=== PATIENT | female | born 1975 | race Caucasian/White ===

== ENCOUNTER → 2018-12-18 | Outpatient (CLI) | payer OTHER, SELFPAY ==
[2018-12-18 10:46] LABS: Absolute Lymphocyte Count 2.55 X10^3/ul (0.83-4.51); Absolute Neutrophil Count 4.9 X10^3/uL (2.0-7.7); Basophil# 0.03 X10^3/uL; Basophil% 0.4 % (0-1); Eosinophil# 0.39 X10^3/uL; Eosinophils% 4.6 % (0-5); Hematocrit 40.6 % (37-47); Hemoglobin 13.6 g/dl (12.0-15.0); Lymphocyte # 2.55 X10^3/ul (4.0); Lymphocyte % 30.3 % (19-41); Mean Corp Hgb Conc 33.5 g/gl (32-36); Mean Corpuscular Hgb 28.3 pg (27.0-32.0); Mean Corpuscular Volume 84.4 fL (81-99); Mean Platelet Vol. 11.1 fl (6.2-12.0); Monocyte# 0.54 X10^3/uL; Monocyte% 6.4 % (0-10); Neutrophil # 4.88 X10^3/uL (2.7-7.7); Neutrophil % 58.1 % (47-70); Platelet Count 268 K/mm3 (150-450); RBC Distribution Width CV 14.3 % (11.6-14.6); Red Blood Count 4.81 M/mm3 (4.2-5.4); White Blood Count 8.4 K/mm3 (4.4-11.0)
[2018-12-18 10:48] LABS: POSITIVE COUNT NO; POSITIVE DIFFERENTIAL NO; POSITIVE MORPHOLOGY NO
[2018-12-18 11:04] LABS: Microalbumin,Random Urine 12.4 mg/L (NO RANGE EST.); Microalbumin:Creatinine Ratio 5.6 mg/g CRE (<30 mg/g CRE)
[2018-12-18 11:08] LABS: ALB/GLOB Ratio 1.1 RATIO (0.9-2.4); AST(SGOT) 18 U/L (15-37); Alanine Aminotransfer ALT/SGPT 37 U/L (13-56); Albumin, Serum 3.8 g/dL (3.2-5.0); Alkaline Phosphatase 103 U/L (45-117); Anion Gap 6 (5-15); BUN 14 mg/dL (7-18); BUN/Creat Ratio 18.3 RATIO (10-20); Calcium,Total 9.4 mg/dL (8.5-10.1); Chloride 106 mmol/L (98-107); Cholesterol 142 mg/dL (200); Creatinine, Serum 0.76 mg/dL (0.55-1.02); EST Glomerular Filtration Rate 87 mL/min (>60); Est Glom Filt Rate - Afr Amer 105 mL/min (>60); Ferritin 19 ng/mL (8-252); Globulin 3.4 g/dL (2.2-4.2); Glucose 111 mg/dL (74-106); High Density Lipoprotein 47 mg/dL; Iron 67 ug/dL (50-170); Iron Binding Capacity,Total 355 ug/dL (250-450); Potassium 4.1 mmol/L (3.5-5.1); Protein, Total 7.2 g/dL (6.4-8.2); Sodium Level 140 mmol/L (136-145); Triglycerides 200 mg/dL; Very Low Density Lipoprotein 40 mg/dL (5-40)
== END | disposition home or self-care (01) ==
PROVIDERS: Family Provider Family Medicine; PCP Family Medicine; Referring Provider Family Medicine; Visit Provider Family Medicine
DX: E11.9 Type 2 diabetes mellitus without complications (principal); E78.5 Hyperlipidemia, unspecified; D64.9 Anemia, unspecified
CPT/HCPCS: 36415; 80053; 80061; 82043; 82570; 82728; 83540; 83550; 85025

== ENCOUNTER → 2019-11-16 12:37 | Outpatient (CLI) | payer OTHER, SELFPAY ==
[2019-11-07 14:49] VITALS: BMI 36.3
--- NOTE | 2019-11-16 12:39 | MRI_ITS ---
STUDY: BILATERAL BREAST MR WITHOUT AND WITH CONTRAST REASON FOR EXAM: Female, 44 years old. Bilateral breast pain. History of bilateral mastectomy with reconstructions 11 years ago. TECHNIQUE: Multi-sequence multi-echo imaging of both breasts was performed with a dedicated breast coil. T1-weighted and T2-weighted images were performed before the administration of contrast. T1-weighted images were also performed after the administration of IV Yes without complications. COMPARISON: No comparison studies. FINDINGS: RIGHT BREAST: Status post mastectomy with implant placement. Prominent folds within the implants. No evidence of intracapsular or extracapsular rupture. There are no abnormal enhancing masses or areas of non-mass enhancement in the right breast. LEFT BREAST: Status post mastectomy with implant placement. Prominent folds within the implants. No evidence of intracapsular or extracapsular rupture. There are no abnormal enhancing masses or areas of non-mass enhancement in the right breast. There are no enlarged or abnormal lymph nodes. There is no abnormality in the visualized regions of the chest or liver. MRI/Breast Bilateral W/O and W IMPRESSION: Bilateral mastectomy with implant placement without complications. Yearly follow-up mammogram would be appropriate. CATEGORY: BIRADS Category 2: Benign. A letter regarding these results will be sent to the patient by the facility within 30 days. Electronically Signed: Moncho Altamirano MD at 15:39 EDT , Service support ,
== END ==
PROVIDERS: PCP Student in an Organized Health Care Education/Training Program; Referring Provider Surgery; Visit Provider Surgery
DX: C50.911 Malignant neoplasm of unspecified site of right female breast (principal); C50.912 Malignant neoplasm of unspecified site of left female breast; N64.4 Mastodynia; T66.XXXS Radiation sickness, unspecified, sequela; Z98.890 Other specified postprocedural states; Z98.82 Breast implant status; Z80.3 Family history of malignant neoplasm of breast
CPT/HCPCS: 77049; A9575; A4216; C8908

== ENCOUNTER 2019-11-26 22:04 | Inpatient (IN) | payer OTHER, SELFPAY ==
[2019-11-07 14:49] VITALS: BMI 36.3
[2019-11-26 22:05] VITALS: BP 153/105; PULSE 119; RESP 26; TEMP 37.4; O2SAT 92; BMI 33.2
--- NOTE | 2019-11-26 22:27 | EKG12_ITS ---
Test Reason : HYPERGLYC Blood Pressure : / mmHG Vent. Rate : 115 BPM Atrial Rate : 115 BPM P-R Int : 126 ms QRS Dur : 086 ms QT Int : 352 ms P-R-T Axes : 038 016 047 degrees QTc Int : 486 ms Sinus tachycardia Otherwise normal ECG Confirmed by ANALY AVILES, MARY ELLEN ([id number]), order editor KATY TIJREINA ([id number] on 11/29/2019 10:37:28 AM Referred By: TANIYA Confirmed By:MARY ELLEN BECKFORD MD
--- NOTE | 2019-11-26 22:28 | RAD_ITS ---
STUDY: X-RAY CHEST REASON FOR EXAM: Female, 44 years old. High blood sugar TECHNIQUE: Single AP portable view of the chest. COMPARISON: None. FINDINGS: The lungs are clear and expanded. There is no demonstrated pleural abnormality. Normal size heart. Normal mediastinum and agatha. Normal visualized pulmonary arteries. Normal visualized aortic arch and descending thoracic aorta. Normal visualized thoracic spine. Normal visualized ribs, clavicles, and shoulders. There is no demonstrated abnormality of the visualized soft tissue structures of the upper abdomen. RAD/Chest 1 View (Portable) IMPRESSION: Normal x-ray examination of the chest. Electronically Signed: Jayy Monet MD at 22:40 EDT , Service support ,
--- NOTE | 2019-11-26 22:32 | ED.RN ---
NO OLD EKGS IN MUSE
[2019-11-26 22:33] LABS: Absolute Lymphocyte Count 1.81 X10^3/uL (0.83-4.51); Absolute Neutrophil Count 6.1 X10^3/uL (2.0-7.7); Basophil# 0.03 X10^3/uL; Basophil% 0.3 % (0-1); Hematocrit 49.1 % (37-47); Lymphocyte # 1.81 X10^3/ul (4.0); Lymphocyte % 20.1 % (19-41); Mean Corp Hgb Conc 30.5 g/dL (32-36); Mean Corpuscular Hgb 27.2 pg (27.0-32.0); Mean Corpuscular Volume 89.1 fL (81-99); Mean Platelet Vol. 12.2 fl (6.2-12.0); Monocyte# 1.02 X10^3/uL; Monocyte% 11.3 % (0-10); NRBC Flagged by Analyzer 0 % (0-5); Neutrophil # 6.13 X10^3/uL (2.7-7.7); Neutrophil % 68.1 % (47-70); Platelet Count 324 K/mm3 (150-450); RBC Distribution Width CV 15.1 % (11.6-14.6); RBC Distribution Width SD 49.1 fl (35.1-43.9); Red Blood Count 5.51 M/mm3 (4.2-5.4)
[2019-11-26] MEDS: 0.9% Normal Saline 1,000 ML 1000 ML IV (22:45)
[2019-11-26 22:57] LABS: Bacteria 0 SEEN /hpf (None Seen); Mucous, Urine 0 SEEN /hpf (<or=2+)
[2019-11-26 23:05] LABS: Color, Urine Straw (Yellow); Glucose, Dipstick 1000 mg/dl (Normal); Ketone-Dipstick 5 mg/dl (Negative); Leukocyte Esterase-Dipstick Negative /ul (Negative); Nitrite-Dipstick Negative (Negative); Occult Blood-Urine 10 /ul (Negative); Protein-Dipstick Negative (Negative); Urine Bilirubin Dipstick Negative (Negative); Urine Clarity Clear (Clear); Urine Urobilinogen Normal (Normal)
[2019-11-26 23:10] LABS: Alcohol, Blood (Medical)-Serum < 3.0 mg/dL
[2019-11-26 23:14] LABS: Anion Gap 16 (5-15); BUN 41 mg/dL (7-18); BUN/Creat Ratio 21.9 RATIO (10-20); Calcium,Total 9.7 mg/dL (8.5-10.1); Chloride 101 mmol/L (98-107); Creatinine, Serum 1.87 mg/dL (0.55-1.02); EST Glomerular Filtration Rate 31 mL/min (>60); Est Glom Filt Rate - Afr Amer 37 mL/min (>60); Estimated Creatinine Clearance 38.32 ml/min; Glucose 1276 mg/dL (74-106); Potassium 4.7 mmol/L (3.5-5.1); Sodium Level 140 mmol/L (136-145)
[2019-11-26 23:14] LABS: Amphetamine Urine VISTA NEGATIVE (<1000 ng/mL); Barbiturate Urine VISTA NEGATIVE (< 200 ng/mL); Benzodiazepine Urine VISTA NEGATIVE (< 200 ng/mL); Cocaine Urine VISTA NEGATIVE (< 300 ng/mL); Ecstacy Urine VISTA NEGATIVE (< 500 ng/mL); Methadone Urine VISTA NEGATIVE (< 300 ng/mL); PCP Urine VISTA NEGATIVE (< 25 ng/mL); THC Urine VISTA NEGATIVE (< 50 ng/mL); Vista UDS pH Range 5
[2019-11-26 23:22] LABS: Squamous Epithelial Cells - UA 0-5 SEEN /hpf (5-10)
[2019-11-26 23:23] LABS: Red Blood Cells-Urine 0-5 SEEN /hpf (0-5)
[2019-11-26 23:24] LABS: White Blood Cells 0-5 SEEN /hpf (0-5)
[2019-11-26 23:28] LABS: AST(SGOT) 23 U/L (15-37); Alanine Aminotransfer ALT/SGPT 38 U/L (13-56); Albumin, Serum 3.3 g/dL (3.2-5.0); Alkaline Phosphatase 305 U/L (45-117); Bilirubin, Direct 0.11 mg/dL (0.00-0.30); Globulin 4.9 g/dL (2.2-4.2); Protein, Total 8.2 g/dL (6.4-8.2)
--- NOTE | 2019-11-26 23:36 | ED.DCSUM_ITS ---
History of Present Illness Chief Complaint: Hyperglycemia Informant: Patient Narrative: Patient presents via EMS after police have been called for a welfare check. The reportedly initially found the patient unresponsive. EMS states patient's blood sugar is high. At the time of my exam patient appears confused. She does know where she is and what day it is. She is not sure why she was brought to the emergency room. She denies any complaints at this time. She does not know when she last checked her blood sugar. She does not remember she ate today. Patient is on metformin for blood sugar control. Her primary care physician manages her diabetes for her. - Past Medical History (1) Bilateral malignant neoplasm of breast in female Status: Chronic (2) Diabetes mellitus Status: Chronic (3) Former smoker Status: Chronic (4) Status post bilateral breast reconstruction Status: Chronic Comment: bilateral latissimus dorsi flaps and bilateral nipple reconstruction and bilateral implant placement Past Medical History - Allergies and Home Meds Allergies/Adverse Reactions: Allergies sulfamethoxazole [From Bactrim] Allergy (Severe, Verified 11/26/19 22:11) FULL BODY RED RASH WAS ALMOST PUT IN THE HOSPITAL FOR THIS trimethoprim [From Bactrim] Allergy (Severe, Verified 11/26/19 22:11) FULL BODY RED RASH WAS ALMOST PUT IN THE HOSPITAL FOR THIS amoxicillin Allergy (Intermediate, Verified 11/26/19 22:11) RASH AND ITCHING azithromycin Allergy (Intermediate, Verified 11/26/19 22:11) RASH AND ITCHING erythromycin base Allergy (Intermediate, Verified 11/26/19 22:11) RASH AND ITCHING Penicillins Allergy (Intermediate, Verified 11/26/19 22:11) RASH AND ITCHING tetracycline Allergy (Intermediate, Verified 11/26/19 22:11) RASH AND ITCHING Primary Care Physician: Kevin Adorno DO [Primary Care Provider] - Prior records reviewed: Yes Smoking Status: Never smoker Review of Systems General: Denies: Chills, Fever Eyes: Denies: Visual changes - bilaterally ENT: Denies: Bilateral ear pain Cardiovascular: Denies: Chest pain Respiratory: Denies: Dyspnea, Cough Gastrointestinal: Denies: Abdominal pain, Vomiting, Diarrhea Musculoskeletal: Denies: Extremity Pain Skin: Reports: - - Patient does have evidence of sunburn to her forearms and the back of her neck. Neurological: Denies: Headache Hematologic: Denies: Easy bruising, Easy bleeding Allergy: Denies: Uticaria Physical Exam Vital Signs/Narrative: Vital Signs Temp Pulse Resp BP Pulse Ox 11/26/19 22:05 99.4 F H 119 H 26 H 153/105 H 92 Inital Vital Signs reviewed: Yes General: Well nourished, Well developed Head: Normocephalic ENT: Moist mucous membranes Neck: Supple Cardiovascular: Tachycardia Respiratory: No distress, CTA bilaterally Abdomen: Soft, Nontender Extremities: Nontender Skin: - - Sunburn noted to forearms bilaterally and back of her neck. No open wounds. Neurological: Alert, Oriented x3, Normal Strength, Normal Sensation Psychological: Normal affect Diagnostic/Tx/Re-eval Impressions Chest X-Ray 11/26/19 22:28 IMPRESSION: Normal x-ray examination of the chest. Electronically Signed: Jayy Monet MD at 22:40 EDT , Service support , 11/26/19 22:28 Chest 1 View (Portable) [RAD] Stat Laboratory Results 11/26/19 11/26/19 11/26/19 22:10 22:10 22:10 WBC 9.0 RBC 5.51 H Hgb 15.0 Hct 49.1 H MCV 89.1 MCH 27.2 MCHC 30.5 L RDW Std Deviation 49.1 H RDW Coeff of Adrianna 15.1 H Plt Count 324 MPV 12.2 H Immature Gran % (Auto) 0.200 Neut % (Auto) 68.1 Lymph % (Auto) 20.1 [place] % (Auto) 11.3 H Eos % (Auto) 0.0 Baso % (Auto) 0.3 Absolute Neuts (auto) 6.1 Absolute Lymphs (auto) 1.81 Nucleated RBC % 0 Sodium 140 Potassium 4.7 Chloride 101 Carbon Dioxide 23.0 Anion Gap 16 H BUN 41 H Creatinine 1.87 H Estim Creat Clear Calc 38.32 Est GFR (MDRD) Af Amer 37 L Est GFR (MDRD) Non-Af 31 L BUN/Creatinine Ratio 21.9 H Glucose 1276 H* Calcium 9.7 Total Bilirubin 0.40 Direct Bilirubin 0.11 AST 23 ALT 38 Alkaline Phosphatase 305 H Total Protein 8.2 Albumin 3.3 Globulin 4.9 H Urine Color Urine Clarity Urine pH Ur Specific [place] Urine Protein Urine Glucose (UA) Urine Ketones Urine Occult Blood Urine Nitrite Urine Bilirubin Urine Urobilinogen Ur Leukocyte Esterase Urine RBC Urine WBC Ur Squamous Epith Cells Urine Bacteria Urine Mucus Urine Opiates Screen Urine Methadone Screen Ur Barbiturates Screen Ur Phencyclidine Scrn Ur Amphetamines Screen U Methamphetamin-MDMA U Benzodiazepines Scrn Urine Cocaine Screen U Cannabinoids Screen Ur Drug Screen Comment Ethyl Alcohol Acetone Level 11/26/19 11/26/19 11/26/19 22:10 22:10 22:50 WBC RBC Hgb Hct MCV MCH MCHC RDW Std Deviation RDW Coeff of Adrianna Plt Count MPV Immature Gran % (Auto) Neut % (Auto) Lymph % (Auto) [place] % (Auto) Eos % (Auto) Baso % (Auto) Absolute Neuts (auto) Absolute Lymphs (auto) Nucleated RBC % Sodium Potassium Chloride Carbon Dioxide Anion Gap BUN Creatinine Estim Creat Clear Calc Est GFR (MDRD) Af Amer Est GFR (MDRD) Non-Af BUN/Creatinine Ratio Glucose Calcium Total Bilirubin Direct Bilirubin AST ALT Alkaline Phosphatase Total Protein Albumin Globulin Urine Color Urine Clarity Urine pH Ur Specific [place] Urine Protein Urine Glucose (UA) Urine Ketones Urine Occult Blood Urine Nitrite Urine Bilirubin Urine Urobilinogen Ur Leukocyte Esterase Urine RBC Urine WBC Ur Squamous Epith Cells Urine Bacteria Urine Mucus Urine Opiates Screen NEGATIVE Urine Methadone Screen NEGATIVE Ur Barbiturates Screen NEGATIVE Ur Phencyclidine Scrn NEGATIVE Ur Amphetamines Screen NEGATIVE U Methamphetamin-MDMA NEGATIVE U Benzodiazepines Scrn NEGATIVE Urine Cocaine Screen NEGATIVE U Cannabinoids Screen NEGATIVE Ur Drug Screen Comment Ethyl Alcohol < 3.0 Acetone Level SMALL H 11/26/19 22:50 WBC RBC Hgb Hct MCV MCH MCHC RDW Std Deviation RDW Coeff of Adrianna Plt Count MPV Immature Gran % (Auto) Neut % (Auto) Lymph % (Auto) [place] % (Auto) Eos % (Auto) Baso % (Auto) Absolute Neuts (auto) Absolute Lymphs (auto) Nucleated RBC % Sodium Potassium Chloride Carbon Dioxide Anion Gap BUN Creatinine Estim Creat Clear Calc Est GFR (MDRD) Af Amer Est GFR (MDRD) Non-Af BUN/Creatinine Ratio Glucose Calcium Total Bilirubin Direct Bilirubin AST ALT Alkaline Phosphatase Total Protein Albumin Globulin Urine Color Straw Urine Clarity Clear Urine pH 6.0 Ur Specific [place] 1.010 Urine Protein Negative Urine Glucose (UA) 1000 H Urine Ketones 5 H Urine Occult Blood 10 H Urine Nitrite Negative Urine Bilirubin Negative Urine Urobilinogen Normal Ur Leukocyte Esterase Negative Urine RBC 0-5 SEEN Urine WBC 0-5 SEEN Ur Squamous Epith Cells 0-5 SEEN Urine Bacteria 0 SEEN Urine Mucus 0 SEEN Urine Opiates Screen Urine Methadone Screen Ur Barbiturates Screen Ur Phencyclidine Scrn Ur Amphetamines Screen U Methamphetamin-MDMA U Benzodiazepines Scrn Urine Cocaine Screen U Cannabinoids Screen Ur Drug Screen Comment Ethyl Alcohol Acetone Level - EKG Initial EKG Interpretation: Sinus Tachycardia - Sinus tach at 115. No acute ischemia. - Medical Decision Making Patient is received 1 L of IV fluid at this time. She will receive an additional 1 L followed by insulin drip. I will speak with hospitalist regarding admission to the ICU. ED Disposition - Plan for ED Patient: Disposition: Acute Care [facility] Diagnosis: Hyperosmolar coma due to secondary diabetes Referrals: Kevin Adorno DO [Primary Care Provider] -
[2019-11-26] MEDS: 0.9% Normal Saline 1,000 ML 999 ML IV (23:45)
--- NOTE | 2019-11-26 23:59 | ED.RN ---
TALKED WITH THE PT'S DAUGHTER AND UPDATED HER ON THE PLAN OF CARE
[2019-11-27] VITALS (18 sets, daily range): BP systolic 115–161; BP diastolic 86–121; PULSE 99–120; RESP 12–26; TEMP 36.2–36.9; O2SAT 92–98; BMI 29.9
--- NOTE | 2019-11-27 00:13 | PCM.HP.STD ---
Problem List (1) Hyperosmolar coma due to secondary diabetes Status: Acute (2) Former smoker Status: Chronic (3) Family history of breast cancer Status: Chronic (4) Status post bilateral breast reconstruction Status: Chronic Comment: bilateral latissimus dorsi flaps and bilateral nipple reconstruction and bilateral implant placement History of Present Illness Date of Admission: 11/27/19 Chief Complaint: confusion/high blood sugar The patient is a 44 year old female patient with a significant past medical history of diabetes who presents the emergency room via squad after somebody did a welfare check at her home and found her to be unresponsive. At the time of my evaluation the patient was able to answer questions but she was confused. Initial blood sugar was 1276, white blood cell count 9, hemoglobin 15, hematocrit 49, platelets 324, sodium 140, potassium 4.7, chloride 101, bicarb 23, BUN 41, creatinine 1.8, calcium 9.7, anion gap 16, tox screen negative, small amount of acetone detected, chest x-ray within normal limits. In the ER patient was started on 2 L of normal saline bolus and insulin drip initiated. She will be admitted to the intensive care unit for further management. Patient denies chest pain shortness of breath fevers or chills at present time although she is a poor historian and unable to tell me properly what the day is, however, she is able to tell me she is at the hospital. Past Medical History Past Medical History (Chronic Problems): Chronic Problems (Last Reviewed 11/09/19 @ 15:[address] 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 Pain of both breasts (Chronic) N64.4 inferior breast reconstruction and lateral breast reconstruction scar contour deformities Bilateral malignant neoplasm of breast in female (Chronic) C50.911, C50.912 Breast cancer C50.919 Diabetes E11.9 Neuropathy G62.9 IN FEET Allergies sulfamethoxazole [From Bactrim] Allergy (Severe, Verified 11/26/19 22:11) FULL BODY RED RASH WAS ALMOST PUT IN THE HOSPITAL FOR THIS trimethoprim [From Bactrim] Allergy (Severe, Verified 11/26/19 22:11) FULL BODY RED RASH WAS ALMOST PUT IN THE HOSPITAL FOR THIS amoxicillin Allergy (Intermediate, Verified 11/26/19 22:11) RASH AND ITCHING azithromycin Allergy (Intermediate, Verified 11/26/19 22:11) RASH AND ITCHING erythromycin base Allergy (Intermediate, Verified 11/26/19 22:11) RASH AND ITCHING Penicillins Allergy (Intermediate, Verified 11/26/19 22:11) RASH AND ITCHING tetracycline Allergy (Intermediate, Verified 11/26/19 22:11) RASH AND ITCHING Home Medications: Ambulatory Orders Medication Instructions Recorded atorvastatin 40 mg tablet 40 mg PO DAILY 11/07/19 bupropion HCl 300 mg 24 hr tablet, 300 mg PO QAM 11/07/19 extended release metformin 1,000 mg tablet 2,000 mg PO BID tab 11/07/19 omeprazole 40 mg capsule,delayed 40 mg PO DAILY 11/07/19 release sertraline 50 mg tablet 150 mg PO DAILY tab 11/07/19 Liraglutide [Victoza] 0.6 mg SQ DAILY 11/26/19 Surgical History: Surgical History (Last Reviewed 11/09/19 @ 15:[address] Joe Cespedes MD) H/O bilateral breast implants (Chronic) Z98.82 Status post bilateral breast reconstruction (Chronic) Z98.890 bilateral latissimus dorsi flaps and bilateral nipple reconstruction and bilateral implant placement History of bilateral mastectomy Z90.13 2008 Smoking Status: Never smoker - *Family History Maternal Family History: Family History (Last Reviewed 11/09/19 @ 15:[address] Joe Cespedes MD) Other Anemia Breast cancer Depression Diabetes Family history of breast cancer History Items: No pertinent history Review of Systems Constitutional: Denies: Chills, Fever, Weight Change HEENT: Denies: Head Aches, Sinus Congestion, Sinus Drainage Cardiovascular: Denies: Chest Pain, Palpitations Respiratory: Denies: Cough, Shortness of breath at rest, Sputum production Gastrointestinal: Denies: Abdominal Pain, Nausea, Vomiting Genitourinary: Denies: Dysuria Musculoskeletal: Denies: Joint Pain, Joint Tenderness Skin: Denies: Rash, Wounds Neurological: Denies: Numbness, Tingling, Focal weakness Psychiatric: Denies: Anxiety, Depression, Homicidal Ideations, Suicidal Ideations Hematologic/ Lymphatic: Denies: Easy Bruising, Easy Bleeding Unable to obtain accurate/complete ROS d/t: pt is confused VTE Information - Inpt Only VTE Present on Admission: No VTE Mechan Device Prophylaxis: None VTE Pharm Prophylaxis ordered?: Yes Patient Problems: Active and Suspected Problems (Last Reviewed 11/09/19 @ 15:[address] Joe Cespedes MD) Hyperosmolar coma due to secondary diabetes (Acute) - Physical Exam Vitals/I&O's: Vital Signs Temp Pulse Resp BP Pulse Ox 99.4 F H 119 H 26 H 153/105 H 92 11/26/19 22:05 11/26/19 22:05 11/26/19 22:05 11/26/19 22:05 11/26/19 22:05 Oxygen Delivery Method Room Air Weight: 218 lb 7.649 oz Body Mass Index (BMI) 33.2 Intake and Output for Last 24 Hours 11/25/19 11/26/19 11/27/19 23:59 23:59 23:59 Intake Total 1000 / 1000 Balance 1000 / 1000 General: Alert, Cooperative, Confused HEENT: Atraumatic, PERRLA, EOMI, Normocephalic Neck: Supple Lungs: Clear to auscultation, Normal air movement Cardiovascular: Regular rate, Normal S1, Normal S2, No murmurs, Tachycardic Abdomen: Bowel Sounds Present, Soft, Non Tender, Obese Extremities: No edema Skin: No rashes, No breakdown Musculoskeletal: No Tenderness to Palpation of Joints or Extremities Neurological: Neuro grossly intact Psych/Mental Status: Normal Affect, Appropriate Laboratory Results 11/26/19 22:10: WBC 9.0, RBC 5.51 H, Hgb 15.0, Hct 49.1 H, MCV 89.1, MCH 27.2, MCHC 30.5 L, RDW Std Deviation 49.1 H, RDW Coeff of Adrianna 15.1 H, Plt Count 324, MPV 12.2 H, Immature Gran % (Auto) 0.200, Neut % (Auto) 68.1, Lymph % (Auto) 20.1, [place] % (Auto) 11.3 H, Eos % (Auto) 0.0, Baso % (Auto) 0.3, Absolute Neuts (auto) 6.1, Absolute Lymphs (auto) 1.81, Nucleated RBC % 0 11/26/19 22:10: Sodium 140, Potassium 4.7, Chloride 101, Carbon Dioxide 23.0, Anion Gap 16 H, BUN 41 H, Creatinine 1.87 H, Estim Creat Clear Calc 38.32, Est GFR (MDRD) Af Amer 37 L, Est GFR (MDRD) Non-Af 31 L, BUN/Creatinine Ratio 21.9 H, Glucose 1276 H*, Calcium 9.7 11/26/19 22:10: Total Bilirubin 0.40, Direct Bilirubin 0.11, AST 23, ALT 38, Alkaline Phosphatase 305 H, Total Protein 8.2, Albumin 3.3, Globulin 4.9 H 11/26/19 22:10: Ethyl Alcohol < 3.0 11/26/19 22:10: Acetone Level SMALL H 11/26/19 22:50: Urine Opiates Screen NEGATIVE, Urine Methadone Screen NEGATIVE, Ur Barbiturates Screen NEGATIVE, Ur Phencyclidine Scrn NEGATIVE, Ur Amphetamines Screen NEGATIVE, U Methamphetamin-MDMA NEGATIVE, U Benzodiazepines Scrn NEGATIVE, Urine Cocaine Screen NEGATIVE, U Cannabinoids Screen NEGATIVE, Ur Drug Screen Comment 11/26/19 22:50: Urine Color Straw, Urine Clarity Clear, Urine pH 6.0, Ur Specific [place] 1.010, Urine Protein Negative, Urine Glucose (UA) 1000 H, Urine Ketones 5 H, Urine Occult Blood 10 H, Urine Nitrite Negative, Urine Bilirubin Negative, Urine Urobilinogen Normal, Ur Leukocyte Esterase Negative, Urine RBC 0-5 SEEN, Urine WBC 0-5 SEEN, Ur Squamous Epith Cells 0-5 SEEN, Urine Bacteria 0 SEEN, Urine Mucus 0 SEEN Current Medications Dextrose (D50w Syringe) 0 gm IV X1 PRN; Protocol PRN Reason: Hypoglycemia Protocol Sodium Chloride () 1,000 mls @ 999 mls/hr IV .Q1H1M ONE Stop: 11/27/19 00:22 Last Admin: 11/26/19 23:45 Dose: 999 mls/hr Documented by: Insulin Human Lispro 100 unit/ (Sodium Chloride) 100 mls @ 9.91 mls/hr IV .Q10H6M REPLACED BY [facility]; Protocol Assessment/Plan All Active Problems (Last Reviewed 11/09/19 @ 15:[address] Joe Cespedes MD) Hyperosmolar coma due to secondary diabetes (Acute) Chronic Problems (Last Reviewed 11/09/19 @ 15:[address] 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 HONK/coma secondary to diabetes?admit patient to intensive care unit, insulin drip per routine protocol, continue IV fluid rehydration, repeat BMP in the morning, repeat acetone level in the morning, consult clinical science consultant, neuro evaluations in the intensive care unit every 4 hours. 2. DVT prophylaxis?low molecular weight heparin Inpatient E&M: 21828 Init Hosp L3
--- NOTE | 2019-11-27 00:30 | ED.RN ---
Called report to DESTINY Ellis in ICU.
[2019-11-27 01:20] LABS: Glucose 1008 mg/dL (74-106)
[2019-11-27 01:50] LABS: Hemoglobin A1c 12.7 % (3.8-5.6)
[2019-11-27] MEDS: 0.9% Normal Saline 1,000 ML 500 ML IV (02:23)
[2019-11-27 02:33] LABS: ALB/GLOB Ratio 0.7 RATIO (0.9-2.4); AST(SGOT) 19 U/L (15-37); Alanine Aminotransfer ALT/SGPT 38 U/L (13-56); Albumin, Serum 3.2 g/dL (3.2-5.0); Alkaline Phosphatase 292 U/L (45-117); Anion Gap 12 (5-15); BUN 39 mg/dL (7-18); BUN/Creat Ratio 22.2 RATIO (10-20); Calcium,Total 9.4 mg/dL (8.5-10.1); Chloride 115 mmol/L (98-107); Creatinine, Serum 1.76 mg/dL (0.55-1.02); EST Glomerular Filtration Rate 33 mL/min (>60); Est Glom Filt Rate - Afr Amer 40 mL/min (>60); Estimated Creatinine Clearance 37.79 ml/min; Globulin 4.9 g/dL (2.2-4.2); Glucose 840 mg/dL (74-106); Magnesium 3.5 mg/dL (1.6-2.6); Potassium 3.4 mmol/L (3.5-5.1); Protein, Total 8.1 g/dL (6.4-8.2); Sodium Level 152 mmol/L (136-145); Thyroid Stim Hormone (TSH) 1.34 uIU/mL (0.358-3.74)
[2019-11-27 04:25] LABS: Anion Gap 8 (5-15); BUN 33 mg/dL (7-18); BUN/Creat Ratio 22.1 RATIO (10-20); Calcium,Total 9.4 mg/dL (8.5-10.1); Chloride 121 mmol/L (98-107); Creatinine, Serum 1.49 mg/dL (0.55-1.02); EST Glomerular Filtration Rate 40 mL/min (>60); Est Glom Filt Rate - Afr Amer 49 mL/min (>60); Estimated Creatinine Clearance 44.64 ml/min; Glucose 447 mg/dL (74-106); Potassium 3.4 mmol/L (3.5-5.1); Sodium Level 157 mmol/L (136-145)
[2019-11-27] MEDS: 0.9% Normal Saline 1,000 ML 250 ML IV (04:25)
[2019-11-27 05:40] LABS: Bedside Glucose 371 mg/dL (70-110)
[2019-11-27 06:31] LABS: Bedside Glucose 336 mg/dL (70-110)
--- NOTE | 2019-11-27 07:01 | PCM.CON.CC ---
Reason for Consult Date of Consultation: 11/27/19 Reason for Consultation: [facility] History of Present Illness: The patient is a 44-year-old female, with a history as outlined below, who presented to the emergency department on November 25 with complaints of abdominal pain, nausea and vomiting. The patient states that she has been experiencing the aforementioned symptoms for several weeks. Although she does have a history of diabetes mellitus, she has been noncompliant with her home diabetic regimen, as she stated that she was unable to tolerate her p.o. medications due to her presenting symptoms. 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 Her diabetic medications are managed by her PCP. Apparently, prior to hospital presentation, friends and family became concerned, as the patient became confused and disoriented. On presentation to the emergency department, the patient was noted to be afebrile and hemodynamically stable. She was, nevertheless tachycardic and tachypneic. Laboratory evaluation revealed no evidence of a leukocytosis. Chemistry profile was notable for an elevated creatinine of 1.87 with a glucose of 1276 and hemoglobin A1c of 12.7. Anion gap was elevated to 16. Small serum acetone level was noted. The patient received aggressive supplemental IV fluid hydration and was started on a continuous insulin infusion. She was subsequently admitted to the medical intensive care unit. Past Medical History Past Medical History (Chronic Problems): Chronic Problems (Last Reviewed 11/09/19 @ 15:[address] 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 Pain of both breasts (Chronic) N64.4 inferior breast reconstruction and lateral breast reconstruction scar contour deformities Bilateral malignant neoplasm of breast in female (Chronic) C50.911, C50.912 Breast cancer C50.919 Diabetes E11.9 Neuropathy G62.9 IN FEET Allergies sulfamethoxazole [From Bactrim] Allergy (Severe, Verified 11/26/19 22:11) FULL BODY RED RASH WAS ALMOST PUT IN THE HOSPITAL FOR THIS trimethoprim [From Bactrim] Allergy (Severe, Verified 11/26/19 22:11) FULL BODY RED RASH WAS ALMOST PUT IN THE HOSPITAL FOR THIS amoxicillin Allergy (Intermediate, Verified 11/26/19 22:11) RASH AND ITCHING azithromycin Allergy (Intermediate, Verified 11/26/19 22:11) RASH AND ITCHING erythromycin base Allergy (Intermediate, Verified 11/26/19 22:11) RASH AND ITCHING Penicillins Allergy (Intermediate, Verified 11/26/19 22:11) RASH AND ITCHING tetracycline Allergy (Intermediate, Verified 11/26/19 22:11) RASH AND ITCHING Home Medications: Ambulatory Orders Medication Instructions Recorded atorvastatin 40 mg tablet 40 mg PO DAILY 11/07/19 bupropion HCl 300 mg 24 hr tablet, 300 mg PO QAM 11/07/19 extended release metformin 1,000 mg tablet 1,000 mg PO BID tab 11/07/19 omeprazole 40 mg capsule,delayed 40 mg PO DAILY 11/07/19 release sertraline 50 mg tablet 150 mg PO DAILY tab 11/07/19 Liraglutide [Victoza] 1.8 mg SQ DAILY 11/26/19 Surgical History: Surgical History (Last Reviewed 11/09/19 @ 15:[address] Joe Cespedes MD) H/O bilateral breast implants (Chronic) Z98.82 Status post bilateral breast reconstruction (Chronic) Z98.890 bilateral latissimus dorsi flaps and bilateral nipple reconstruction and bilateral implant placement History of bilateral mastectomy Z90.13 2009 Smoking Status: Never smoker - *Family History Maternal Family History: Family History (Last Reviewed 11/09/19 @ 15:[address] Joe Cespedes MD) Other Anemia Breast cancer Depression Diabetes Family history of breast cancer History Items: No pertinent history Review of Systems Constitutional: Denies: Chills, Fever Eyes: Denies: Blurred vision, Double vision HEENT: Denies: Difficulty Hearing, Difficulty Swallowing Cardiovascular: Denies: Chest Pain, Palpitations Respiratory: Denies: Cough, Shortness of breath at rest, Sputum production Gastrointestinal: Reports: Abdominal Pain, Nausea, Vomiting Genitourinary: Denies: Dysuria Musculoskeletal: Denies: Joint Pain, Joint Tenderness Skin: Denies: Rash, Wounds Neurological: Reports: Confusion Psychiatric: Denies: Anxiety, Depression, Homicidal Ideations, Suicidal Ideations Hematologic/ Lymphatic: Denies: Easy Bruising, Easy Bleeding Patient Problems: Active and Suspected Problems (Last Reviewed 11/09/19 @ 15:[address] Joe Cespedes MD) Hyperosmolar coma due to secondary diabetes (Acute) Objective: The patient's most recent lab work, culture data and imaging studies have all been personally reviewed. - Physical Exam Vitals/I&O's: Vital Signs Temp Pulse Resp BP Pulse Ox 97.6 F L 107 H 19 H 151/98 H 96 11/27/19 04:00 11/27/19 06:00 11/27/19 06:00 11/27/19 06:00 11/27/19 06:00 Oxygen Delivery Method Room Air Weight: 185 lb 6.54 oz Body Mass Index (BMI) 29.9 Finger Stick Blood Glucose 336 Intake and Output for Last 24 Hours 11/25/19 11/26/19 11/27/19 23:59 23:59 23:59 Intake Total 1000 / 1000 Balance 1000 / 1000 General: Alert, Cooperative, No apparent distress HEENT: Atraumatic, PERRLA, Normocephalic Oral: No Gingival or Mucosal Lesions/ Ulcerations Neck: Supple, No Nodes, Trachea Midline Lungs: Normal air movement, No rhonchi, No wheeze, No rales Cardiovascular: Regular rate, Regular Rhythm, Normal S1, Normal S2 Abdomen: Bowel Sounds Present, Soft, Non Tender Extremities: No clubbing, No cyanosis, No edema Skin: No breakdown Musculoskeletal: No Tenderness to Palpation of Joints or Extremities Lymphatic: No Cervical, Supraclavicular, or Inguinal Adenopathy Neurological: Cranial nerves II-XII grossly intact, Neuro grossly intact Psych/Mental Status: Normal Affect, Appropriate Laboratory Results 11/26/19 22:10: WBC 9.0, RBC 5.51 H, Hgb 15.0, Hct 49.1 H, MCV 89.1, MCH 27.2, MCHC 30.5 L, RDW Std Deviation 49.1 H, RDW Coeff of Adrianna 15.1 H, Plt Count 324, MPV 12.2 H, Immature Gran % (Auto) 0.200, Neut % (Auto) 68.1, Lymph % (Auto) 20.1, [place] % (Auto) 11.3 H, Eos % (Auto) 0.0, Baso % (Auto) 0.3, Absolute Neuts (auto) 6.1, Absolute Lymphs (auto) 1.81, Nucleated RBC % 0 11/26/19 22:10: Sodium 140, Potassium 4.7, Chloride 101, Carbon Dioxide 23.0, Anion Gap 16 H, BUN 41 H, Creatinine 1.87 H, Estim Creat Clear Calc 38.32, Est GFR (MDRD) Af Amer 37 L, Est GFR (MDRD) Non-Af 31 L, BUN/Creatinine Ratio 21.9 H, Glucose 1276 H*, Calcium 9.7 11/26/19 22:10: Total Bilirubin 0.40, Direct Bilirubin 0.11, AST 23, ALT 38, Alkaline Phosphatase 305 H, Total Protein 8.2, Albumin 3.3, Globulin 4.9 H 11/26/19 22:10: Ethyl Alcohol < 3.0 11/26/19 22:10: Acetone Level SMALL H 11/26/19 22:10: Hemoglobin A1c 12.7 H 11/26/19 22:50: Urine Opiates Screen NEGATIVE, Urine Methadone Screen NEGATIVE, Ur Barbiturates Screen NEGATIVE, Ur Phencyclidine Scrn NEGATIVE, Ur Amphetamines Screen NEGATIVE, U Methamphetamin-MDMA NEGATIVE, U Benzodiazepines Scrn NEGATIVE, Urine Cocaine Screen NEGATIVE, U Cannabinoids Screen NEGATIVE, Ur Drug Screen Comment 11/26/19 22:50: Urine Color Straw, Urine Clarity Clear, Urine pH 6.0, Ur Specific [place] 1.010, Urine Protein Negative, Urine Glucose (UA) 1000 H, Urine Ketones 5 H, Urine Occult Blood 10 H, Urine Nitrite Negative, Urine Bilirubin Negative, Urine Urobilinogen Normal, Ur Leukocyte Esterase Negative, Urine RBC 0-5 SEEN, Urine WBC 0-5 SEEN, Ur Squamous Epith Cells 0-5 SEEN, Urine Bacteria 0 SEEN, Urine Mucus 0 SEEN 11/27/19 00:40: Glucose 1008 H* 11/27/19 01:55: Sodium 152 H, Potassium 3.4 L, Chloride 115 H, Carbon Dioxide 25.0, Anion Gap 12, BUN 39 H, Creatinine 1.76 H, Estim Creat Clear Calc 37.79, Est GFR (MDRD) Af Amer 40 L, Est GFR (MDRD) Non-Af 33 L, BUN/Creatinine Ratio 22.2 H, Glucose 840 H*, Calcium 9.4, Phosphorus 4.0, Magnesium 3.5 H, Total Bilirubin 0.30, AST 19, ALT 38, Alkaline Phosphatase 292 H, Total Protein 8.1, Albumin 3.2, Globulin 4.9 H, Albumin/Globulin Ratio 0.7 L, TSH 1.34 11/27/19 03:50: Sodium 157 H, Potassium 3.4 L, Chloride 121 H, Carbon Dioxide 28.0, Anion Gap 8, BUN 33 H, Creatinine 1.49 H, Estim Creat Clear Calc 44.64, Est GFR (MDRD) Af Amer 49 L, Est GFR (MDRD) Non-Af 40 L, BUN/Creatinine Ratio 22.1 H, Glucose 447 H, Calcium 9.4 11/27/19 05:32: POC Glucose 371 H 11/27/19 06:25: POC Glucose 336 H Current Medications Dextrose (D50w Syringe) 0 gm IV X1 PRN; Protocol PRN Reason: Hypoglycemia Protocol Enoxaparin Sodium (Lovenox) 40 mg SC DAILY GAYLE Glucagon () 1 mg IM .X1 PRN PRN Reason: Hypoglycemia Insulin Human Lispro 100 unit/ (Sodium Chloride) 100 mls @ 9.91 mls/hr IV .Q10H6M GAYLE; Protocol Last Titration: 11/27/19 06:25 Dose: 0.01 units/kg/hr, 1.1 mls/hr Documented by: Sodium Chloride () 1,000 mls @ 250 mls/hr IV .Q4H ONE Stop: 11/27/19 08:24 Last Admin: 11/27/19 04:25 Dose: 250 mls/hr Documented by: Sodium Chloride () 250 mls @ 15 mls/hr IV .[id number] PRN PRN Reason: Saline Flush Sodium Chloride () 250 mls @ 15 mls/hr IV .[id number] PRN PRN Reason: Additional IVPB Infusion Potassium Chloride () 10 meq in 100 mls @ 100 mls/hr IV BOLUS Q1H [facility] Stop: 11/27/19 10:44 Ondansetron HCl (Zofran) 4 mg IV Q8H PRN PRN PRN Reason: NAUSEA/VOMITING Sodium Chloride () 10 - 40 ml IV UD PRN PRN Reason: SALINE FLUSH Assessment/Plan Active and Suspected Problems (Last Reviewed 11/09/19 @ 15:[address] Joe Cespedes MD) Hyperosmolar coma due to secondary diabetes (Acute) RECOMMENDATIONS: 1. Transition from normal saline to D5W infusion. 2. Consider transitioning from continuous insulin infusion to Lantus and sliding scale coverage. 3. Recheck BMP this afternoon. 4. Provide extensive diabetic education. 5. Restart home medications. 6. Close outpatient follow-up with PCP is strongly recommended. IMPRESSIONS: 1. Hyperosmolar hyperglycemic state secondary to outpatient noncompliance The patient has been treated with supplemental IV fluid hydration and continuous insulin infusion. She clearly has some underlying compliance issues, based upon her hemoglobin A1c which exceeded 12 on presentation. She will be continued on supplemental IV fluid hydration for now. However, given her rising sodium and chloride levels, I recommended we transition her to D5W. The patient can likely be transitioned to Lantus and sliding scale insulin coverage. Diabetic education will be provided. 2. Acute kidney injury Likely prerenal in etiology. The patient has responded appropriately to IV fluid resuscitation. Creatinine has improved. Continue to monitor urine output. No current indication for renal replacement therapy. 3. Hypernatremia/hyperchloremia Likely secondary to overzealous resuscitation with normal saline. The patient supplemental fluids have been transitioned to D5W. Recommend rechecking BMP later today. 4. Depression/GERD/hyperlipidemia Complicates care, management, recovery and prognosis. Okay to restart home medications from my perspective. This note was generated with [employer] software. It may contain incorrect words, spelling, and punctuation that were not noted in checking the note before signing. Inpatient E&M: 59104 Init Hosp L3
--- NOTE | 2019-11-27 07:19 | PCM.PN.HOSP ---
Patient Problems: Active and Suspected Problems (Last Reviewed 11/09/19 @ 15:[address] Joe Cespedes MD) Hyperosmolar coma due to secondary diabetes (Acute) Reason for Visit: Follow-up for [facility]. Objective: Patient admits that she has been slacking on glucose checks and medication for diabetes mellitus type 2. She last checked her blood sugar about a month ago and was about 150s. She is only on metformin 1000 mg twice daily at home. 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 Blood sugars was 1276 in BMP, BUN/creatinine 41/1.87, sodium 140, confused and very dehydrated. Patient was resuscitated in ER and further in ICU. She is awake and alert and oriented x3. Vitals/I&O's: Vital Signs Temp Pulse Resp BP Pulse Ox 97.6 F L 107 H 19 H 151/98 H 96 11/27/19 04:00 11/27/19 06:00 11/27/19 06:00 11/27/19 06:00 11/27/19 06:00 Oxygen Delivery Method Room Air Weight: 185 lb 6.54 oz Body Mass Index (BMI) 29.9 Finger Stick Blood Glucose 336 Intake and Output for Last 24 Hours 11/25/19 11/26/19 11/27/19 23:59 23:59 23:59 Intake Total 1000 / 1000 2734.26 / 2734.26 Balance 1000 / 1000 2734.26 / 2734.26 General: Alert, Oriented x3, Cooperative HEENT: Atraumatic, PERRLA, EOMI, Normocephalic Neck: Supple, No JVD, Negative Carotid Bruits Lungs: Clear to auscultation, Normal air movement, No rhonchi, No wheeze, No rales Cardiovascular: Regular Rhythm, Normal S1, Normal S2, No murmurs, Tachycardic Abdomen: Bowel Sounds Present, Soft, Non Tender, Non-Distended Extremities: No edema, Capillary Refill Less than 3 Seconds Skin: No rashes, No breakdown Musculoskeletal: No Tenderness to Palpation of Joints or Extremities Neurological: Cranial nerves II-XII grossly intact, Deep Tendon Reflexes 2+/4 and Symmetrical, Neuro grossly intact, Motor Exam 5/5 strength throughout Psych/Mental Status: Normal Affect, Appropriate Laboratory Results 11/26/19 22:10: WBC 9.0, RBC 5.51 H, Hgb 15.0, Hct 49.1 H, MCV 89.1, MCH 27.2, MCHC 30.5 L, RDW Std Deviation 49.1 H, RDW Coeff of Adrianna 15.1 H, Plt Count 324, MPV 12.2 H, Immature Gran % (Auto) 0.200, Neut % (Auto) 68.1, Lymph % (Auto) 20.1, [place] % (Auto) 11.3 H, Eos % (Auto) 0.0, Baso % (Auto) 0.3, Absolute Neuts (auto) 6.1, Absolute Lymphs (auto) 1.81, Nucleated RBC % 0 11/26/19 22:10: Sodium 140, Potassium 4.7, Chloride 101, Carbon Dioxide 23.0, Anion Gap 16 H, BUN 41 H, Creatinine 1.87 H, Estim Creat Clear Calc 38.32, Est GFR (MDRD) Af Amer 37 L, Est GFR (MDRD) Non-Af 31 L, BUN/Creatinine Ratio 21.9 H, Glucose 1276 H*, Calcium 9.7 11/26/19 22:10: Total Bilirubin 0.40, Direct Bilirubin 0.11, AST 23, ALT 38, Alkaline Phosphatase 305 H, Total Protein 8.2, Albumin 3.3, Globulin 4.9 H 11/26/19 22:10: Ethyl Alcohol < 3.0 11/26/19 22:10: Acetone Level SMALL H 11/26/19 22:10: Hemoglobin A1c 12.7 H 11/26/19 22:50: Urine Opiates Screen NEGATIVE, Urine Methadone Screen NEGATIVE, Ur Barbiturates Screen NEGATIVE, Ur Phencyclidine Scrn NEGATIVE, Ur Amphetamines Screen NEGATIVE, U Methamphetamin-MDMA NEGATIVE, U Benzodiazepines Scrn NEGATIVE, Urine Cocaine Screen NEGATIVE, U Cannabinoids Screen NEGATIVE, Ur Drug Screen Comment 11/26/19 22:50: Urine Color Straw, Urine Clarity Clear, Urine pH 6.0, Ur Specific [place] 1.010, Urine Protein Negative, Urine Glucose (UA) 1000 H, Urine Ketones 5 H, Urine Occult Blood 10 H, Urine Nitrite Negative, Urine Bilirubin Negative, Urine Urobilinogen Normal, Ur Leukocyte Esterase Negative, Urine RBC 0-5 SEEN, Urine WBC 0-5 SEEN, Ur Squamous Epith Cells 0-5 SEEN, Urine Bacteria 0 SEEN, Urine Mucus 0 SEEN 11/27/19 00:40: Glucose 1008 H* 11/27/19 01:55: Sodium 152 H, Potassium 3.4 L, Chloride 115 H, Carbon Dioxide 25.0, Anion Gap 12, BUN 39 H, Creatinine 1.76 H, Estim Creat Clear Calc 37.79, Est GFR (MDRD) Af Amer 40 L, Est GFR (MDRD) Non-Af 33 L, BUN/Creatinine Ratio 22.2 H, Glucose 840 H*, Calcium 9.4, Phosphorus 4.0, Magnesium 3.5 H, Total Bilirubin 0.30, AST 19, ALT 38, Alkaline Phosphatase 292 H, Total Protein 8.1, Albumin 3.2, Globulin 4.9 H, Albumin/Globulin Ratio 0.7 L, TSH 1.34 11/27/19 03:50: Sodium 157 H, Potassium 3.4 L, Chloride 121 H, Carbon Dioxide 28.0, Anion Gap 8, BUN 33 H, Creatinine 1.49 H, Estim Creat Clear Calc 44.64, Est GFR (MDRD) Af Amer 49 L, Est GFR (MDRD) Non-Af 40 L, BUN/Creatinine Ratio 22.1 H, Glucose 447 H, Calcium 9.4 11/27/19 05:32: POC Glucose 371 H 11/27/19 06:25: POC Glucose 336 H Current Medications Dextrose (D50w Syringe) 0 gm IV X1 PRN; Protocol PRN Reason: Hypoglycemia Protocol Enoxaparin Sodium (Lovenox) 40 mg SC DAILY GAYLE Glucagon () 1 mg IM .X1 PRN PRN Reason: Hypoglycemia Insulin Human Lispro 100 unit/ (Sodium Chloride) 100 mls @ 9.91 mls/hr IV .Q10H6M GAYLE; Protocol Last Titration: 11/27/19 06:25 Dose: 0.01 units/kg/hr, 1.1 mls/hr Documented by: Sodium Chloride () 250 mls @ 15 mls/hr IV .[id number] PRN PRN Reason: Saline Flush Sodium Chloride () 250 mls @ 15 mls/hr IV .[id number] PRN PRN Reason: Additional IVPB Infusion Potassium Chloride () 10 meq in 100 mls @ 100 mls/hr IV BOLUS Q1H [facility] Stop: 11/27/19 10:44 Dextrose () 1,000 mls @ 150 mls/hr IV .Q6H40M GAYLE Ondansetron HCl (Zofran) 4 mg IV Q8H PRN PRN PRN Reason: NAUSEA/VOMITING Sodium Chloride () 10 - 40 ml IV UD PRN PRN Reason: SALINE FLUSH STROKE Vital Signs/Narrative: Vital Signs Temp Pulse Resp BP Pulse Ox 11/27/19 06:00 107 H 19 H 151/98 H 96 11/27/19 05:00 117 H 17 138/103 H 92 11/27/19 04:00 97.6 F L 114 H 20 H 142/100 H 92 Medical Necessity - Tobacco Use Smoking Status: Never smoker Assessment/Plan All Active Problems (Last Reviewed 11/09/19 @ 15:[address] Joe Cespedes MD) Hyperosmolar coma due to secondary diabetes (Acute) This is a 44-year-old female with history of diabetes mellitus type 2's admitted in ICU with unresponsiveness, blood glucose 1276, electrolyte abnormality, acute kidney injury consistent with hyperglycemic hyperosmolar state 1. Hyperglycemic hyperosmolar state: While in ICU patient patient has been well hydrated. Glucose 147. On insulin drip. Patient can be fed once off insulin drip and change to intermittent subcutaneous bolus and prandial insulin. 2. Electrolyte abnormality: Initially sodium was 140. Now hypernatremic 157. Mild hyponatremia, potassium being replaced. 3. Acute kidney injury, grade 1, prerenal etiology secondary to hypovolemia: Admitting BUN/creatinine 41/1.87. Patient baseline creatinine 0.76 on 12/18/2018 4. Unresponsiveness/acute encephalopathy mainly metabolic secondary to HHS: Resolved. 5. DVT prophylaxis: Lovenox 40 mg of daily.
[2019-11-27 07:50] LABS: Bedside Glucose 362 mg/dL (70-110)
[2019-11-27] MEDS: Potassium Chloride 10mEq/100mL 10 MEQ/100 ML IV.SOLN. 100 MEQ IV BOLUS ×4 (07:54→10:51)
[2019-11-27 08:03] LABS: Anion Gap 9 (5-15); BUN 30 mg/dL (7-18); BUN/Creat Ratio 25.9 RATIO (10-20); Calcium,Total 8.8 mg/dL (8.5-10.1); Chloride 124 mmol/L (98-107); Creatinine, Serum 1.16 mg/dL (0.55-1.02); EST Glomerular Filtration Rate 54 mL/min (>60); Est Glom Filt Rate - Afr Amer 65 mL/min (>60); Estimated Creatinine Clearance 57.33 ml/min; Glucose 402 mg/dL (74-106); Potassium 3.9 mmol/L (3.5-5.1); Sodium Level 161 mmol/L (136-145)
[2019-11-27 08:30] LABS: Bedside Glucose 327 mg/dL (70-110)
[2019-11-27 09:56] LABS: Bedside Glucose 338 mg/dL (70-110)
--- NOTE | 2019-11-27 09:57 | CASEMGMT ---
RN CM Assessment Note Presentation: Pt found by police during well check to be unresponsive and transported via EMS to hospital Diagnosis: Hyperosmolar coma, Diabetes Type 2 Intro role of CM to patient in room. Pt is now awake, alert and able to participate in assessment. Pt states she works, is independent in ADL and no care needs identified. 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 Pt has done insulin injections in past. PMH: Diabetes, Breast Cancer PCP: Dr. Adorno Specialists: none. Discussed if [facility] recommended, Dr. Barrera is [facility] physician. Pt aware how to contact and make appt if needed. Preferred Pharmacy: [facility] Prescription Benefit: yes LNOK: Mother, Emi Reyes Living Arrangements: Lives independently, Denies care needs Tranportation: drives, but will have someone drive her home. DME: Blood Glucose monitor HHC: none SNF: none Patient DC Goals: Home DC Plan: Home. will need script for Blood Glucose monitoring supplies. Nurse has name of monitor and will let physician know to write script on dc. No needs identified @ this time. Andreia HENDERSONN RN ACM
--- NOTE | 2019-11-27 10:52 | PCM.NTREPORT ---
Nutrition Therapy Report - History Nutrition Services has been consulted to:: Conduct nutrition education Current diet / nutrition support order:: NPO - Anthropometric Measurements Height:: 5 ft 6 in Weight:: 84.1 kg Body Mass Index (BMI):: 29.9 - Relevant Labs Relevant Labs:: RBC 5.51 M/mm3 (4.2-5.4) H 11/26/19 22:10 Hct 49.1 % (37-47) H 11/26/19 22:10 MCHC 30.5 g/dL (32-36) L 11/26/19 22:10 RDW Std Deviation 49.1 fl (35.1-43.9) H 11/26/19 22:10 RDW Coeff of Adrianna 15.1 % (11.6-14.6) H 11/26/19 22:10 MPV 12.2 fl (6.2-12.0) H 11/26/19 22:10 [place] % (Auto) 11.3 % (0-10) H 11/26/19 22:10 Sodium 161 mmol/L (136-145) H* 11/27/19 07:40 Potassium 3.4 mmol/L (3.5-5.1) L 11/27/19 03:50 Chloride 124 mmol/L (98-107) H 11/27/19 07:40 Anion Gap 16 (5-15) H 11/26/19 22:10 BUN 30 mg/dL (7-18) H 11/27/19 07:40 Creatinine 1.16 mg/dL (0.55-1.02) H 11/27/19 07:40 Est GFR (MDRD) Af Amer 49 mL/min (>60) L 11/27/19 03:50 Est GFR (MDRD) Non-Af 54 mL/min (>60) L 11/27/19 07:40 BUN/Creatinine Ratio 25.9 RATIO (10-20) H 11/27/19 07:40 Glucose 402 mg/dL (74-106) H 11/27/19 07:40 Hemoglobin A1c 12.7 % (3.8-5.6) H 11/26/19 22:10 Magnesium 3.5 mg/dL (1.6-2.6) H 11/27/19 01:55 Alkaline Phosphatase 292 U/L (45-117) H 11/27/19 01:55 Globulin 4.9 g/dL (2.2-4.2) H 11/27/19 01:55 Albumin/Globulin Ratio 0.7 RATIO (0.9-2.4) L 11/27/19 01:55 - Assessment Food / Nutrition-Related History:: Pt reports not following a special diet at home. States blood glucose was only high d/t not taking her medications as prescribed. A1C indicates very poor glycemic control. 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 Reports fair intake d/t n/v. Believes she lost 15# d/t n/v. UBW 230# and CBW 185.4#-44.6/19% wt loss, significant. Agreeable to education, see below. - Nutrition Diagnosis Evidence of Malnutrition Exists:: No - Nutrition Intervention Nutrition Prescription:: [id number] calories/day, 67-77 g protein/day - Food / Nutrient Delivery Interventions Summary of nutrition intervention:: Nutrition education provided. Reviewed sources of CHO in diet. Discussed limiting CHO using plate method. Encouraged increased intake of non-starchy vegetables. Pt expresses interest in continuing w/ wt loss when blood glucose is adequately controlled. Agreeable to information presented, but appears confident that blood glucose will improve when medications are taken as prescribed. Encouraged follow-up w/ outpatient [facility]. Nutrition support ordered as / adjusted to:: 1800 calorie diet when PO diet appropriate. Nutrition education provided?: Yes - see above - MNT Monitoring MNT Follow-up in:: 3-5 days
[2019-11-27 11:00] LABS: Bedside Glucose 321 mg/dL (70-110)
[2019-11-27 12:16] LABS: Anion Gap 9 (5-15); BUN 23 mg/dL (7-18); BUN/Creat Ratio 21.1 RATIO (10-20); Calcium,Total 8.9 mg/dL (8.5-10.1); Chloride 120 mmol/L (98-107); Creatinine, Serum 1.09 mg/dL (0.55-1.02); EST Glomerular Filtration Rate 58 mL/min (>60); Est Glom Filt Rate - Afr Amer 70 mL/min (>60); Estimated Creatinine Clearance 61.02 ml/min; Glucose 340 mg/dL (74-106); Sodium Level 157 mmol/L (136-145)
[2019-11-27] MEDS: buPROPion (XL) 300 MG TABLET.XL PO (12:25)
[2019-11-27] MEDS: Sertraline 100 MG Tablet 150 MG PO (12:25)
[2019-11-27] MEDS: Pantoprazole Sodium 40 MG Tablet PO (12:25)
[2019-11-27 13:25] LABS: Bedside Glucose 306 mg/dL (70-110)
[2019-11-27 13:25] LABS: Bedside Glucose 301 mg/dL (70-110)
--- NOTE | 2019-11-27 15:38 | DS.PCM_ITS ---
Discharge Date and Diagnosis Date of Admission: 11/27/19 Date of Discharge: 11/27/19 - Primary Discharge Diagnosis Acute Problems: Active Problems (Last Reviewed 11/09/19 @ 15:[address] Joe Cespedes MD) Hyperosmolar coma due to secondary diabetes (Acute) Hypernatremia Hyperosmolar hyperglycemic state Sign AMA - Secondary Discharge Diagnosis Chronic Problems: Chronic Problems (Last Reviewed 11/09/19 @ 15:[address] 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 Pain of both breasts (Chronic) inferior breast reconstruction and lateral breast reconstruction scar contour deformities H/O bilateral breast implants (Chronic) Status post bilateral breast reconstruction (Chronic) bilateral latissimus dorsi flaps and bilateral nipple reconstruction and bilateral implant placement Bilateral malignant neoplasm of breast in female (Chronic) Hospital Course and Treatment Summary of Care Provided: This is a 44-year-old female with history of diabetes mellitus type 2 was admitted in ICU with unresponsiveness, blood glucose 1276, electrolyte abnormality, acute kidney injury consistent with hyperglycemic hyperosmolar state 1. Hyperglycemic hyperosmolar state: Patient was well hydrated with normal saline and then fluid changed to D5W once found hypernatremic. Insulin drip was changed to intermittent subcutaneous basal and sliding scale insulin. Patient is not on insulin at home. Started on carb controlled diet. 2. Electrolyte abnormality: Initially sodium was 140. Now hypernatremic 157. On D5W. 3. Acute kidney injury, grade 1, prerenal etiology secondary to hypovolemia: Admitting BUN/creatinine 41/1.87. Patient baseline creatinine 0.76 on 12/18/2018. Most recent BUN/creatinine 23/1.09. 4. Unresponsiveness/acute encephalopathy mainly metabolic secondary to HHS: Resolved. 5. DVT prophylaxis: Lovenox 40 mg of daily. [] Patient was tried to convince and reconcile to stay in the hospital for HHS and metabolic and electrolyte abnormality but she is adamant to sign AMA. She also wanted to provide right for home and that was declined as she wants to sign AMA. Patient went to home despite knowing the dangers of hypernatremia and metabolic/biochemical abnormality as mentioned above Patient is advised to follow-up with hearing aide technician, Dr. Barrera in 1 to 2 weeks. Objective: Seen and examined. Patient very adamant to sign AMA despite trying to convince her decision to reconsider as her blood sugars are elevated and has electrolyte abnormality including hypernatremia. - Physical Exam Vitals/I&O's: Vital Signs Temp Pulse Resp BP Pulse Ox 97.8 F 99 23 H 121/97 H 95 11/27/19 12:00 11/27/19 12:00 11/27/19 12:00 11/27/19 12:00 11/27/19 12:00 Oxygen Delivery Method Room Air Weight: 185 lb 6.54 oz Body Mass Index (BMI) 29.9 Finger Stick Blood Glucose 321 Intake and Output for Last 24 Hours 11/25/19 11/26/19 11/27/19 23:59 23:59 23:59 Intake Total 1000 / 1000 3131.99 / 3131.99 Balance 1000 / 1000 3131.99 / 3131.99 General: Alert, Oriented x3, Cooperative HEENT: Atraumatic, PERRLA, EOMI, Normocephalic Neck: Supple, No JVD, Negative Carotid Bruits Lungs: Clear to auscultation, Normal air movement, No rhonchi, No wheeze, No rales Cardiovascular: Regular rate, Regular Rhythm, Normal S1, Normal S2, No murmurs Abdomen: Bowel Sounds Present, Soft, Non Tender, Non-Distended Extremities: No edema, Capillary Refill Less than 3 Seconds Skin: No rashes, No breakdown Musculoskeletal: No Tenderness to Palpation of Joints or Extremities Neurological: Cranial nerves II-XII grossly intact Psych/Mental Status: Normal Affect, Appropriate Laboratory Results 11/26/19 22:10: WBC 9.0, RBC 5.51 H, Hgb 15.0, Hct 49.1 H, MCV 89.1, MCH 27.2, MCHC 30.5 L, RDW Std Deviation 49.1 H, RDW Coeff of Adrianna 15.1 H, Plt Count 324, MPV 12.2 H, Immature Gran % (Auto) 0.200, Neut % (Auto) 68.1, Lymph % (Auto) 20.1, [place] % (Auto) 11.3 H, Eos % (Auto) 0.0, Baso % (Auto) 0.3, Absolute Neuts (auto) 6.1, Absolute Lymphs (auto) 1.81, Nucleated RBC % 0 11/26/19 22:10: Sodium 140, Potassium 4.7, Chloride 101, Carbon Dioxide 23.0, Anion Gap 16 H, BUN 41 H, Creatinine 1.87 H, Estim Creat Clear Calc 38.32, Est GFR (MDRD) Af Amer 37 L, Est GFR (MDRD) Non-Af 31 L, BUN/Creatinine Ratio 21.9 H , Glucose 1276 H*, Calcium 9.7 11/26/19 22:10: Total Bilirubin 0.40, Direct Bilirubin 0.11, AST 23, ALT 38, Alkaline Phosphatase 305 H, Total Protein 8.2, Albumin 3.3, Globulin 4.9 H 11/26/19 22:10: Ethyl Alcohol < 3.0 11/26/19 22:10: Acetone Level SMALL H 11/26/19 22:10: Hemoglobin A1c 12.7 H 11/26/19 22:50: Urine Opiates Screen NEGATIVE, Urine Methadone Screen NEGATIVE, Ur Barbiturates Screen NEGATIVE, Ur Phencyclidine Scrn NEGATIVE, Ur Amphetamines Screen NEGATIVE, U Methamphetamin-MDMA NEGATIVE, U Benzodiazepines Scrn NEGATIVE, Urine Cocaine Screen NEGATIVE, U Cannabinoids Screen NEGATIVE, Ur Drug Screen Comment 11/26/19 22:50: Urine Color Straw, Urine Clarity Clear, Urine pH 6.0, Ur Specific [place] 1.010, Urine Protein Negative, Urine Glucose (UA) 1000 H, Urine Ketones 5 H, Urine Occult Blood 10 H, Urine Nitrite Negative, Urine Bilirubin Negative, Urine Urobilinogen Normal, Ur Leukocyte Esterase Negative, Urine RBC 0-5 SEEN, Urine WBC 0-5 SEEN, Ur Squamous Epith Cells 0-5 SEEN, Urine Bacteria 0 SEEN, Urine Mucus 0 SEEN 11/27/19 00:40: Glucose 1008 H* 11/27/19 01:55: Sodium 152 H, Potassium 3.4 L, Chloride 115 H, Carbon Dioxide 25.0, Anion Gap 12, BUN 39 H, Creatinine 1.76 H, Estim Creat Clear Calc 37.79, Est GFR (MDRD) Af Amer 40 L, Est GFR (MDRD) Non-Af 33 L, BUN/Creatinine Ratio 22.2 H, Glucose 840 H*, Calcium 9.4, Phosphorus 4.0, Magnesium 3.5 H, Total Bilirubin 0.30, AST 19, ALT 38, Alkaline Phosphatase 292 H, Total Protein 8.1, Albumin 3.2, Globulin 4.9 H, Albumin/Globulin Ratio 0.7 L, TSH 1.34 11/27/19 03:50: Sodium 157 H, Potassium 3.4 L, Chloride 121 H, Carbon Dioxide 28.0, Anion Gap 8, BUN 33 H, Creatinine 1.49 H, Estim Creat Clear Calc 44.64, Est GFR (MDRD) Af Amer 49 L, Est GFR (MDRD) Non-Af 40 L, BUN/Creatinine Ratio 22.1 H, Glucose 447 H, Calcium 9.4 11/27/19 05:32: POC Glucose 371 H 11/27/19 06:25: POC Glucose 336 H 11/27/19 07:34: POC Glucose 362 H 11/27/19 07:40: Sodium 161 H*, Potassium 3.9, Chloride 124 H, Carbon Dioxide 28.0, Anion Gap 9, BUN 30 H, Creatinine 1.16 H, Estim Creat Clear Calc 57.33, Est GFR (MDRD) Af Amer 65, Est GFR (MDRD) Non-Af 54 L, BUN/Creatinine Ratio 25.9 H, Glucose 402 H, Calcium 8.8 11/27/19 08:27: POC Glucose 327 H 11/27/19 09:49: POC Glucose 338 H 11/27/19 10:53: POC Glucose 321 H 11/27/19 11:53: POC Glucose 306 H 11/27/19 11:55: Sodium 157 H, Potassium 4.0, Chloride 120 H, Carbon Dioxide 28.0, Anion Gap 9, BUN 23 H, Creatinine 1.09 H, Estim Creat Clear Calc 61.02, Est GFR (MDRD) Af Amer 70, Est GFR (MDRD) Non-Af 58 L, BUN/Creatinine Ratio 21.1 H, Glucose 340 H, Calcium 8.9 11/27/19 13:13: POC Glucose 301 H Current Medications Atorvastatin Calcium (Lipitor) 40 mg PO QHS [facility] Bupropion HCl (Wellbutrin Xl) 300 mg PO DAILY [facility] Last Admin: 11/27/19 12:25 Dose: 300 mg Documented by: Dextrose (D50w Syringe) 0 gm IV X1 PRN; Protocol PRN Reason: Hypoglycemia Enoxaparin Sodium (Lovenox) 40 mg SC DAILY [facility] Last Admin: 11/27/19 10:24 Dose: Not Given Documented by: Glucagon () 1 mg IM .X1 PRN PRN Reason: Hypoglycemia Insulin Human Lispro 100 unit/ (Sodium Chloride) 100 mls @ 9.91 mls/hr IV .Q10H6M [facility]; Protocol Last Titration: 11/27/19 10:54 Dose: 0.03 units/kg/hr, 3.1 mls/hr Documented by: Sodium Chloride () 250 mls @ 15 mls/hr IV .[id number] PRN PRN Reason: Saline Flush Sodium Chloride () 250 mls @ 15 mls/hr IV .[id number] PRN PRN Reason: Additional IVPB Infusion Dextrose () 1,000 mls @ 150 mls/hr IV .Q6H40M [facility] Last Admin: 11/27/19 07:54 Dose: 150 mls/hr Documented by: Insulin Glargine (Lantus (Bkc)) 10 units SC BIDCM [facility] Insulin Human Lispro (Humalog Kwikpen (Bkc)) 0 unit SC ACHS [facility]; Protocol Ondansetron HCl (Zofran) 4 mg IV Q8H PRN PRN PRN Reason: NAUSEA/VOMITING Pantoprazole Sodium (Protonix) 40 mg PO DAILY [facility] Last Admin: 11/27/19 12:25 Dose: 40 mg Documented by: Sertraline HCl (Zoloft) 150 mg PO DAILY [facility] Last Admin: 11/27/19 12:25 Dose: 150 mg Documented by: Sodium Chloride () 10 - 40 ml IV UD PRN PRN Reason: SALINE FLUSH Home Medications: Medications to take at Discharge atorvastatin 40 mg tablet 40 mg PO DAILY 11/07/19 bupropion HCl 300 mg 24 hr tablet, extended release 300 mg PO QAM 11/07/19 metformin 1,000 mg tablet 1,000 mg PO BID tab 11/07/19 omeprazole 40 mg capsule,delayed release 40 mg PO DAILY 11/07/19 sertraline 50 mg tablet 150 mg PO DAILY tab 11/07/19 Liraglutide [Victoza] 1.8 mg SQ DAILY 11/26/19 Primary Care Physician: Kevin Adorno DO [Primary Care Provider] - Medical Necessity - Tobacco Use Smoking Status: Never smoker Meaningful Use Info Meaningful Use Diagnoses (Choose all that apply): None applicable Inpatient E&M: 82130 SNF Disch
== END 2019-11-27 14:30 | disposition left against medical advice (07) | DRG 637 ==
LOC: ED 23:40 → ICU 11-27 01:21
PROVIDERS: Internal Medicine Critical Care Medicine; Admitting Provider Family Medicine; Emergency Provider Emergency Medicine; PCP Student in an Organized Health Care Education/Training Program; Visit Provider Internal Medicine
DX: E11.01 Type 2 diabetes mellitus with hyperosmolarity with coma (principal); G93.41 Metabolic encephalopathy; E87.0 Hyperosmolality and hypernatremia; N17.9 Acute kidney failure, unspecified; Z87.891 Personal history of nicotine dependence; E86.1 Hypovolemia; E11.40 Type 2 diabetes mellitus with diabetic neuropathy, unspecified; Z91.19 Patient's noncompliance with other medical treatment and regimen; K21.9 Gastro-esophageal reflux disease without esophagitis; F32.9 Major depressive disorder, single episode, unspecified; E78.5 Hyperlipidemia, unspecified
CPT/HCPCS: 71045; 80048; 80053; 80076; 80307; 80320; 81001; 82009; 82947; 82962; 83036; 83735; 84100; 84443; 85025; 93005; 97802; 99285; J7030; A4216; G0480

== ENCOUNTER 2019-11-28 17:12 | Emergency (ER) | payer OTHER, SELFPAY ==
[2019-11-27 10:54] VITALS: BMI 29.9
[2019-11-28 17:13] VITALS: BP 163/114; PULSE 101; RESP 18; TEMP 35.9; O2SAT 98; BMI 34.0
[2019-11-28 17:51] LABS: Bedside Glucose 491 mg/dL (70-110)
--- NOTE | 2019-11-28 17:55 | ED.VIS.GEN ---
History of Present Illness Chief Complaint: Hyperglycemia Informant: Patient, Family Onset: Days - 3 Context: Gradual Onset Timing: Continuous Quality: fatigued Location: all over Current Severity: Moderate Maximum Severity: Moderate Worsened by: nothing Relieved by: nothing Associated Symptoms: thirsty, n/v, polyuria Narrative: Patient stopped her diabetes medications for about 3 weeks and as a result had hyperglycemia around 1200, she was seen and admitted to the ICU 2 days ago on an insulin drip but signed out AGAINST MEDICAL ADVICE. She still feels terrible, her sugars are in the 4 and 500s, so she seeks treatment saying that she should not of left. She states she has had vomiting for weeks, which is part of why she stopped her diabetes medications because she thought that would help it maybe, she understands that was not smart. She is now on her medications which include Glucophage and Victoza. She denies any suicidal ideation. She denies any new symptoms. She has had a 15 pound weight loss in the past month or so, mainly because of difficulty keeping down food. - Past Medical History (1) Bilateral malignant neoplasm of breast in female Status: Chronic (2) Diabetes mellitus Status: Chronic Past Medical History - Allergies and Home Meds Allergies/Adverse Reactions: Allergies sulfamethoxazole [From Bactrim] Allergy (Severe, Verified 11/28/19 17:13) FULL BODY RED RASH WAS ALMOST PUT IN THE HOSPITAL FOR THIS trimethoprim [From Bactrim] Allergy (Severe, Verified 11/28/19 17:13) FULL BODY RED RASH WAS ALMOST PUT IN THE HOSPITAL FOR THIS amoxicillin Allergy (Intermediate, Verified 11/28/19 17:13) RASH AND ITCHING azithromycin Allergy (Intermediate, Verified 11/28/19 17:13) RASH AND ITCHING erythromycin base Allergy (Intermediate, Verified 11/28/19 17:13) RASH AND ITCHING Penicillins Allergy (Intermediate, Verified 11/28/19 17:13) RASH AND ITCHING tetracycline Allergy (Intermediate, Verified 11/28/19 17:13) RASH AND ITCHING Primary Care Physician: Kevin Adorno DO [Primary Care Provider] - 3-5 Days Surgical History: - - bilat mastectomy and breast reconstruction Lives: Alone Smoking Status: Never smoker - Family History Maternal Family History: Family History (Last Reviewed 11/09/19 @ 15:[address] Joe Cespedes MD) Other Anemia Breast cancer Depression Diabetes Family history of breast cancer Family History: Reports: No pertinent history Review of Systems General: Reports: Malaise. Denies: Chills, Fever, Sweats Eyes: Denies: Visual changes - bilaterally, Diplopia ENT: Denies: Rhinorrhea, Sore throat Cardiovascular: Denies: Chest pain, Palpitations Respiratory: Denies: Dyspnea, Cough, Dyspnea on exertion Gastrointestinal: Reports: Nausea, Vomiting. Denies: Abdominal pain, Diarrhea, Melena, Hematochezia Genitourinary: Denies: Dysuria, Hematuria, Frequency Musculoskeletal: Denies: Neck pain, Back pain, Extremity Pain Skin: Denies: Rash, Wounds Neurological: Denies: Headache, Weakness, Numbness Endocrine: Reports: Polyuria, Polydipsia. Denies: Heat intolerance, Cold intolerance Physical Exam Vital Signs/Narrative: Vital Signs Temp Pulse Resp BP Pulse Ox 11/28/19 17:13 96.7 F L 101 H 18 163/114 H 98 Inital Vital Signs reviewed: Yes General: Well nourished, Well developed, No Acute Distress Head: Normocephalic, Atraumatic Eyes: Perrl, EOMI ENT: No rhinorrhea, Dry mucous membranes. Negative for: Sinus tenderness Neck: Supple, Nontender Cardiovascular: Regular rate, Regular rhythm, No murmurs, Tachycardia - mild Respiratory: No distress, CTA bilaterally, Chest nontender Abdomen: Soft, Nontender, Nondistended, Normal bowel sounds Back: Nontender, Normal Inspection Extremities: Nontender, No edema. Negative for: Calf Tenderness Skin: Normal color, No rash, No Trauma Neurological: Alert, Oriented x3, Cranial nerves II-XII grossly intact, Normal Strength, Normal Sensation Psychological: Normal affect, Normal Mood Diagnostic/Tx/Re-eval Laboratory Results 11/28/19 11/28/19 11/28/19 17:45 17:45 17:45 WBC 9.6 RBC 4.95 Hgb 13.3 Hct 42.7 MCV 86.3 MCH 26.9 L MCHC 31.1 L RDW Std Deviation 47.5 H RDW Coeff of Adrianna 15.0 H Plt Count 244 MPV 12.2 H Immature Gran % (Auto) 0.800 Neut % (Auto) 67.6 Lymph % (Auto) 22.8 [place] % (Auto) 8.2 Eos % (Auto) 0.2 Baso % (Auto) 0.4 Absolute Neuts (auto) 6.5 Absolute Lymphs (auto) 2.19 Nucleated RBC % 0 Sodium 145 Potassium 4.0 Chloride 109 H Carbon Dioxide 23.0 Anion Gap 13 BUN 23 H Creatinine 1.04 H Estim Creat Clear Calc 66.43 Est GFR (MDRD) Af Amer 74 Est GFR (MDRD) Non-Af 61 BUN/Creatinine Ratio 22.1 H Glucose 537 H* Calcium 9.4 Urine Color Urine Clarity Urine pH Ur Specific [place] Urine Protein Urine Glucose (UA) Urine Ketones Urine Occult Blood Urine Nitrite Urine Bilirubin Urine Urobilinogen Ur Leukocyte Esterase Urine RBC Urine WBC Ur Squamous Epith Cells Urine Bacteria Urine Mucus Acetone Level NEGATIVE POC Glucose 11/28/19 11/28/19 11/28/19 17:46 18:40 19:36 WBC RBC Hgb Hct MCV MCH MCHC RDW Std Deviation RDW Coeff of Adrianna Plt Count MPV Immature Gran % (Auto) Neut % (Auto) Lymph % (Auto) [place] % (Auto) Eos % (Auto) Baso % (Auto) Absolute Neuts (auto) Absolute Lymphs (auto) Nucleated RBC % Sodium Potassium Chloride Carbon Dioxide Anion Gap BUN Creatinine Estim Creat Clear Calc Est GFR (MDRD) Af Amer Est GFR (MDRD) Non-Af BUN/Creatinine Ratio Glucose Calcium Urine Color Yellow Urine Clarity Clear Urine pH 6.0 Ur Specific [place] 1.010 Urine Protein 15 H Urine Glucose (UA) 1000 H Urine Ketones 15 H Urine Occult Blood Negative Urine Nitrite Negative Urine Bilirubin Negative Urine Urobilinogen Normal Ur Leukocyte Esterase Negative Urine RBC 0 SEEN Urine WBC 0 SEEN Ur Squamous Epith Cells 0 SEEN Urine Bacteria 0 SEEN Urine Mucus 0 SEEN Acetone Level POC Glucose 491 H* 360 H - Medical Decision Making Patient was given 2 L of IV fluids as well as subcutaneous insulin lispro 14 units, she felt much better after the hydration and we brought her sugar down to the 200s. She feels much better and is comfortable going home. She will continue taking her medication to follow-up with her doctor. No sign of any infection or DKA on the work-up, electrolytes are within normal limits. ED Disposition - Plan for ED Patient: Disposition: Home or Assisted Living Diagnosis: Hyperglycemia due to type 2 diabetes mellitus, Vomiting Instructions: ED Diabetic Hyperglycemia, ED Diet for Vomiting or Diarrhea Adult Prescriptions: proMETHazine tablet [Phenergan tablet] 25 mg PO Q6H PRN PRN #20 tab PRN Reason: Nausea Prescription Printed Referrals: Kevin Adorno DO [Primary Care Provider] - 3-5 Days
[2019-11-28] MEDS: Metoclopramide 10 MG/2 ML Vial 5 MG IV (18:06)
[2019-11-28] MEDS: 0.9% Normal Saline 1,000 ML 999 ML IV ×2 (18:06→19:38)
[2019-11-28] MEDS: Insulin Lispro 100 UNIT/ML INSULN.PEN 14 UNIT SC (18:09)
[2019-11-28 18:25] LABS: Absolute Lymphocyte Count 2.19 X10^3/uL (0.83-4.51); Absolute Neutrophil Count 6.5 X10^3/uL (2.0-7.7); Basophil# 0.04 X10^3/uL; Basophil% 0.4 % (0-1); Eosinophil# 0.02 X10^3/uL; Eosinophils% 0.2 % (0-5); Hematocrit 42.7 % (37-47); Hemoglobin 13.3 g/dL (12.0-15.0); Lymphocyte # 2.19 X10^3/ul (4.0); Lymphocyte % 22.8 % (19-41); Mean Corp Hgb Conc 31.1 g/dL (32-36); Mean Corpuscular Hgb 26.9 pg (27.0-32.0); Mean Corpuscular Volume 86.3 fL (81-99); Mean Platelet Vol. 12.2 fl (6.2-12.0); Monocyte# 0.79 X10^3/uL; Monocyte% 8.2 % (0-10); NRBC Flagged by Analyzer 0 % (0-5); Neutrophil % 67.6 % (47-70); Platelet Count 244 K/mm3 (150-450); RBC Distribution Width SD 47.5 fl (35.1-43.9); Red Blood Count 4.95 M/mm3 (4.2-5.4); White Blood Count 9.6 K/mm3 (4.4-11.0)
[2019-11-28 18:30] LABS: Anion Gap 13 (5-15); BUN 23 mg/dL (7-18); BUN/Creat Ratio 22.1 RATIO (10-20); Calcium,Total 9.4 mg/dL (8.5-10.1); Chloride 109 mmol/L (98-107); Creatinine, Serum 1.04 mg/dL (0.55-1.02); EST Glomerular Filtration Rate 61 mL/min (>60); Est Glom Filt Rate - Afr Amer 74 mL/min (>60); Estimated Creatinine Clearance 66.43 ml/min; Glucose 537 mg/dL (74-106); Sodium Level 145 mmol/L (136-145)
[2019-11-28 18:49] LABS: Bacteria 0 SEEN /hpf (None Seen); Mucous, Urine 0 SEEN /hpf (<or=2+); Red Blood Cells-Urine 0 SEEN /hpf (0-5); Squamous Epithelial Cells - UA 0 SEEN /hpf (5-10); White Blood Cells 0 SEEN /hpf (0-5)
[2019-11-28 19:40] LABS: Bedside Glucose 360 mg/dL (70-110)
[2019-11-28 19:42] LABS: Color, Urine Yellow (Yellow); Glucose, Dipstick 1000 mg/dl (Normal); Ketone-Dipstick 15 mg/dl (Negative); Leukocyte Esterase-Dipstick Negative /ul (Negative); Nitrite-Dipstick Negative (Negative); Occult Blood-Urine Negative /ul (Negative); Protein-Dipstick 15 mg/dl (Negative); Urine Bilirubin Dipstick Negative (Negative); Urine Clarity Clear (Clear); Urine Urobilinogen Normal (Normal)
[2019-11-28 19:52] VITALS: BP 136/81; PULSE 95; RESP 16; O2SAT 98
[2019-11-28 20:41] LABS: Bedside Glucose 293 mg/dL (70-110)
[2019-11-28 20:58] VITALS: BP 136/81; PULSE 95; RESP 16; O2SAT 98
== END 2019-11-28 21:00 | disposition home or self-care (01) ==
PROVIDERS: Emergency Provider Emergency Medicine; PCP Student in an Organized Health Care Education/Training Program
DX: E11.65 Type 2 diabetes mellitus with hyperglycemia (principal); R11.10 Vomiting, unspecified; Z79.84 Long term (current) use of oral hypoglycemic drugs
CPT/HCPCS: 80048; 81001; 82009; 82962; 85025; 96361; 96374; 99285; J7030; A4216

== ENCOUNTER → 2019-12-28 10:04 | Outpatient (CLI) | payer OTHER, SELFPAY ==
[2019-11-28 17:13] VITALS: BMI 34.0
== END ==
PROVIDERS: PCP Student in an Organized Health Care Education/Training Program; Visit Provider Internal Medicine Hematology & Oncology
DX: C50.111 Malignant neoplasm of central portion of right female breast (principal); C79.51 Secondary malignant neoplasm of bone; C50.112 Malignant neoplasm of central portion of left female breast; Z17.0 Estrogen receptor positive status [ER+]
CPT/HCPCS: 87635; G2023; U0003

== ENCOUNTER 2020-01-10 08:59 | Day surgery (SDC) | payer OTHER, SELFPAY ==
[2020-01-08 14:33] VITALS: BMI 32.2
[2020-01-09 12:38] LABS: Anion Gap 7 (5-15); BUN 7 mg/dL (7-18); BUN/Creat Ratio 10.7 RATIO (10-20); Calcium,Total 9.1 mg/dL (8.5-10.1); Chloride 108 mmol/L (98-107); Creatinine, Serum 0.65 mg/dL (0.55-1.02); EST Glomerular Filtration Rate 104 mL/min (>60); Est Glom Filt Rate - Afr Amer 126 mL/min (>60); Glucose 131 mg/dL (74-106); Potassium 3.8 mmol/L (3.5-5.1); Sodium Level 141 mmol/L (136-145)
[2020-01-10] VITALS (7 sets, daily range): BP systolic 106–130; BP diastolic 78–94; PULSE 96–106; RESP 14–18; TEMP 36.1–36.6; O2SAT 92–97; BMI 31.9
[2020-01-10] MEDS: Lactated Ringers 1,000 ML 100 ML IV (10:08)
[2020-01-10 10:16] LABS: Bedside Glucose 152 mg/dL (70-110)
--- NOTE | 2020-01-10 11:02 | PCM.HP.BLA ---
Problem List (1) Metastatic breast cancer Status: Acute History and Physical Date of Admission: 01/10/20 Intake Visit Reasons: PORT PLACEMENT Chief Complaint: port placement Medical Records Director Required: No Is patient in pain?: No Allergies sulfamethoxazole [From Bactrim] Allergy (Severe, Verified 01/08/20 14:35) FULL BODY RED RASH trimethoprim [From Bactrim] Allergy (Severe, Verified 01/08/20 14:35) FULL BODY RED RASH amoxicillin Allergy (Intermediate, Verified 01/08/20 14:35) RASH AND ITCHING azithromycin Allergy (Intermediate, Verified 01/08/20 14:35) RASH AND ITCHING erythromycin base Allergy (Intermediate, Verified 01/08/20 14:35) RASH AND ITCHING Penicillins Allergy (Intermediate, Verified 01/08/20 14:35) RASH AND ITCHING tetracycline Allergy (Intermediate, Verified 01/08/20 14:35) RASH AND ITCHING Medications atorvastatin 40 mg tablet 40 mg PO DAILY 11/07/19 [History Confirmed 01/08/20] bupropion HCl 300 mg 24 hr tablet, extended release 300 mg PO QAM 11/07/19 [History Confirmed 01/08/20] metformin 1,000 mg tablet 1,000 mg PO BID tab 11/07/19 [History Confirmed 01/08/20] omeprazole 40 mg capsule,delayed release 40 mg PO DAILY 11/07/19 [History Confirmed 01/08/20] sertraline 50 mg tablet 150 mg PO DAILY tab 11/07/19 [History Confirmed 01/08/20] Liraglutide [Victoza] 1.8 mg SQ DAILY 11/26/19 [History Confirmed 01/08/20] proMETHazine tablet [Phenergan tablet] 25 mg PO Q6H PRN PRN #20 tab 11/28/19 [Rx Confirmed 01/08/20] insulin glargine 100 unit/mL (3 mL) subcutaneous pen 10 unit SC QPM 01/08/20 [History Confirmed 01/08/20] PFSH Family History (Updated 01/08/20 @ 14:08 by Chiquita Muñoz) Mother Breast cancer Cancer Father Cancer Brain Other Anemia Depression Diabetes Family history of breast cancer Social History (Updated 01/08/20 @ 16:[address] Tao Levy MD) Smoking Status: Never smoker alcohol intake: never substance use type: does not use additional social history: DOES NOT TAKE ASPIRIN DOES TAKE IBUPROFEN NEEDED HPI HPI HPI: MUSHTAQ FRANCES, is a 44 F who presents to the office today for surgical consultation for placement of a port. She was referred by Dr. Trevor Stern and her primary care physicians Dr. Kevin Adorno. The patient has a diagnosis of metastatic breast cancer. Her history dates back to 2008. Stage IIIc ER AL positive HER-2 nu negative breast cancer bilaterally. She had left axillary lymph node dissection at that time with 20 out of 25 lymph nodes positive. She states that she did not have a dissection on the right. BR CA 1 and 2 were negative. She recently had a fall which caused some rib fractures and that stimulated more intensive x-rays including a CT scan showing multiple metastatic lesions of the bone including the right L3 transverse process left iliac crest of the thoracic spine. She is being referred for port placement. She previously remotely had a port on the right chest. She has lost at least 30 pounds in weight since that time. HPI HPI HPI: MUSHTAQ FRANCES, is a 44 F who presents to the office today for ROS General General: Yes weight change, fatigue and breast cancer; no appetite, colon cancer or weakness HEENT HEENT: No difficulty swallowing, eye injury, eye surgery, swollen glands or hoarseness Endo Endocrine: Yes diabetes mellitus; no thyroid disease, thyroid cancer, Hair loss, heat intolerance or cold intolerance Skin Skin: No rash or changing moles Musc Musculoskeletal: Yes arthritis; no back problems, rheumatoid arthritis, gout or joint pain Cardio Cardiovascular: No murmur, pacemaker, heart disease, atrial fibrillation, high blood pressure, heart attack, heart stent, palpitations, shortness of breat with exertion or chest pain Resp Respiratory: No shortness of breath, No sleep apnea, No cough, No COPD, No asthma, No emphysema, No wheezing Gastro Gastrointestinal: No abdominal pain, Yes nausea or vomiting, No diarrhea, No constipation, No blood in stool, No acid reflux, No hemorrhoids, No ulcers, No gallbladder problem, No black,tarry stools Neuro Neurologic: No weakness Exam Const General: cooperative, comfortable, no acute distress Nutritional Appearance: overweight Orientation: alert, awake [facility] Head: normal to inspection Eyes General: appearance normal, both eyes and all related structures Chest Other: Well-healed oblique incision right anterior chest superior aspect of the breast. Resp Effort & Inspection: normal respiratory effort Auscultation: clear to auscultation bilaterally Cardio Rate: regular rate Rhythm: regular rhythm Heart Sounds: no murmurs GI Palpation: soft, no hepatosplenomegaly Auscultation: normal bowel sounds Neuro General: alert, awake Extrem General: no calf tenderness Psych Affect: normal affect Assessment & Plan Problems 1. 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 She has an upcoming PET scan to facilitate her management as well. I have discussed her care with . Hopefully I will be able to replace a right internal jugular port and utilize the right chest site. She had an extensive left axillary lymph node dissection so I will avoid the left side if feasible. Of course of the right internal jugular vein has been compromised and the patient is aware that I will attempt a left-sided approach. She is aware of the technique, benefit, risk of alternatives. We will schedule and expedite her care. She is aware of Covid-19 pandemic. She is aware that the [facility] is currently reporting a low local incidence. Cc: Dr. Kevin Adorno and Dr. Trevor Levy M.D., F.A.C.S. Coding Level of Care Code 56878 Diagnoses Metastatic breast cancer C50.919 01/08/20 1646 <Electronically signed by Tao Levy MD> Date Tao Levy MD I have re-examined the patient. There are no clinical changes since date of exam. Procedure Criteria Procedure Type: Elective COVID Risk Discussion: The surgeon/proceduralist and patient have discussed in detail the risk of exposure to and/or potential harm posed by the COVID-19 virus with having a surgery/procedure at this time versus the risk of delaying the surgery/procedure. It is not possible to know either the risk of delaying the surgery or procedure or chance of getting an infection with perfect accuracy, but a joint decision was made between the patient and the surgeon/proceduralist to proceed at this time with the scheduled surgery/procedure as indicated on the consent form.
[2020-01-10] MEDS: Bupivacaine Mpf 0.5% 30 ML VIAL (11:11)
--- NOTE | 2020-01-10 11:52 | RAD_ITS ---
STUDY: X-RAY CHEST REASON FOR EXAM: Female, 44 years old. PORT PLACEMENT TECHNIQUE: Single AP portable view of the chest. COMPARISON: Comparison is made with prior examination dated November 26, 2019. FINDINGS: EKG electrodes are seen. A right-sided donta catheter as been placed. The tip is in the proximal portion of the superior vena cava. The lungs are clear and expanded. There is no demonstrated pleural abnormality. Normal size heart. Normal mediastinum and agatha. Normal visualized pulmonary arteries. Normal visualized aortic arch and descending thoracic aorta. Normal visualized thoracic spine. Normal visualized ribs, clavicles, and shoulders. There is no demonstrated abnormality of the visualized soft tissue structures of the upper abdomen. RAD/CXR for Line Placement IMPRESSION: The tip of the right portacatheter is in the proximal portion of the superior vena cava. Electronically Signed: Josue Olivera, at 12:37 EDT , Service support ,
--- NOTE | 2020-01-10 11:55 | OP.PCM_ITS ---
Problem List (1) Metastatic breast cancer Status: Acute Report of Operation Date of Procedure: 01/10/20 Pre-Operative Diagnosis: Metastatic breast cancer Post-Operative Diagnosis: Same Surgery/Procedure Performed:: Right internal jugular 6 [place] PowerPort placement. Reference #[id number]. Lot [id number]. Expiry date 02/24/2021 Description of Surgical Findings:: Timeout and informed consent was obtained. 44-year-old female was taken to the operating room and placed supine on the table. Clindamycin 900 mg were given intravenously. The right neck and chest were sterilely prepped and draped. 1% lidocaine mixed 50-50 with 0.5% Marcaine was used as a local anesthetic. A total of 28 cc was used. Under ultrasound guidance local was instilled to the right neck overlying the internal jugular vein. Micropuncture needle was inserted. The patient had significant respiratory variation with the positioning of her internal jugular vein and a couple access attempts were required. Then the wire was nicely advanced. Fluoroscopy demonstrated good position. Local was instilled down upon the right chest wall. Patient had evidence of a previous oblique skin scar from a remote port. I did a transverse elliptical excision of that skin scar. Using electrocautery made a subcutaneous pocket. The tubing was tunneled from the neck to the chest site. Sheath dilator was placed over the wire under fluoroscopic control. The wire and dilator were removed. 035 J-wire was inserted. 6 [place] short sheath dilator was inserted. The dilator wire removed. The catheter was advanced through the sheath. The catheter was positioned so the tip would be close to the SVC atrial junction. The catheter was amputated connected the port and secured there with the a port attachment device. The port was placed in the pocket and secured there with 2-0 silk. The port site was then closed in layers with interrupted 3-0 Vicryl several layers and superficial sutures were needed of interrupted 5-0 Vicryl. The neck was closed with interrupted 5-0 Vicryl subdermal stitch. Steri-Strips Telfa OpSite dressings applied. The port was accessed and aspirated easily. It was flushed with saline and then 3 cc of heparinized saline. Sponge and instrument and needle counts were reported to the surgeon to be correct. Blood loss minimal. She was taken to the recovery area in satisfactory addition without apparent complication Specimen none. Drains none. Blood loss minimal. Tao Levy M.D., F.A.C.S. Type of Anesthesia:: Local MAC Anesthesiologist: Alma Menjivar
--- NOTE | 2020-01-10 11:59 | PCM.DC.POR ---
Discharge Diet: No Restrictions - Pain medication may cause nausea. You should typically eat light foods as you take your pain medication. Discharge Activity: Return to Normal Activity, May Shower - Leave the bandage on for 3 days. When you remove the bandage, leave the steri-strips intact for one week. Additional Activity Instructions:: May not drive, work with heavy equipment, or sign legal documents for [address] if you are no longer taking narcotic pain medications. You may drive when you are no longer taking pain medications. Allergies/Adverse Reactions: Allergies sulfamethoxazole [From Bactrim] Allergy (Severe, Verified 01/10/20 09:45) FULL BODY RED RASH WAS ALMOST PUT IN THE HOSPITAL FOR THIS trimethoprim [From Bactrim] Allergy (Severe, Verified 01/10/20 09:45) FULL BODY RED RASH WAS ALMOST PUT IN THE HOSPITAL FOR THIS amoxicillin Allergy (Intermediate, Verified 01/10/20 09:45) RASH AND ITCHING azithromycin Allergy (Intermediate, Verified 01/10/20 09:45) RASH AND ITCHING erythromycin base Allergy (Intermediate, Verified 01/10/20 09:45) RASH AND ITCHING Penicillins Allergy (Intermediate, Verified 01/10/20 09:45) RASH AND ITCHING tetracycline Allergy (Intermediate, Verified 01/10/20 09:45) RASH AND ITCHING Medications to take at Discharge atorvastatin 40 mg tablet 40 mg PO DAILY 11/07/19 bupropion HCl 300 mg 24 hr tablet, extended release 300 mg PO QAM 11/07/19 metformin 1,000 mg tablet 1,000 mg PO BID tab 11/07/19 omeprazole 40 mg capsule,delayed release 40 mg PO DAILY 11/07/19 sertraline 50 mg tablet 150 mg PO DAILY tab 11/07/19 Liraglutide [Victoza] 1.8 mg SQ DAILY 11/26/19 proMETHazine tablet [Phenergan tablet] 25 mg PO Q6H PRN PRN #20 tab 11/28/19 Insulin Glargine [Lantus SoloStar Pen] 10 units SUBCUT QHS 01/09/20 Hydrocodone Bitart/Apap 5-325 [Bedford 5MG-325MG] 1 tablet PO Q6H PRN PRN 2 Days #6 tablet 01/10/20 The following prescriptions were given: Hydrocodone Bitart/Apap 5-325 [Bedford 5MG-325MG] 1 tablet PO Q6H PRN PRN 2 Days #6 tablet PRN Reason: Pain Transmission Status: Sent to [facility] Primary Care Physician: Kevin Adorno DO [Primary Care Provider] - Test Results: Test results from this visit will be discussed in further detail at your follow-up appointment, if applicable. Please Follow Up With: Tao Levy MD - [phone] When: Office follow-up can be as needed
== END 2020-01-10 13:11 | disposition home or self-care (01) ==
LOC: SDC 09:00 → AC 09:01
PROVIDERS: Anesthesiology; PCP Student in an Organized Health Care Education/Training Program; Referring Provider Surgery; Visit Provider Surgery
PROC: (CPT 36561; principal; 2020-01-10 10:45)
DX: Z45.2 Encounter for adjustment and management of vascular access device (principal); C50.919 Malignant neoplasm of unspecified site of unspecified female breast; C79.51 Secondary malignant neoplasm of bone; Z11.59 Encounter for screening for other viral diseases; Z79.899 Other long term (current) drug therapy; Z79.4 Long term (current) use of insulin; F41.9 Anxiety disorder, unspecified; E11.9 Type 2 diabetes mellitus without complications; F32.9 Major depressive disorder, single episode, unspecified; K21.9 Gastro-esophageal reflux disease without esophagitis
CPT/HCPCS: 36561; 36415; 71045; 77001; 80048; 82962; 87635; G2023; J7120; J2405; U0003

== ENCOUNTER → 2020-01-22 13:58 | Outpatient (CLI) | payer OTHER, SELFPAY ==
[2020-01-10 09:47] VITALS: BMI 31.9
--- NOTE | 2020-01-22 14:30 | PET_ITS ---
EXAMINATION: FDG PET-CT INDICATIONS: A 44-year-old female with history of carcinoma of the breast presenting for restaging examination. COMPARISON EXAMINATION: None available INDEX LESION SIZE SUV INTERPRETATION Upper abdomen soft tissue nodularity 21.1-mm (largest) (frame 136) 4.4 (max) Fulfills quantitative criteria for viable neoplasm Left and right lobe hepatic parenchyma 41.1-mm (largest) (frame 138) 5.9 (max) ratio > 2.0 Fulfills quantitative criteria for viable neoplasm Appendicular, axial skeletal structures 9.0 (max) Fulfills quantitative criteria for viable neoplasm NON-INDEX LESION SIZE SUV INTERPRETATION Right lateral neck level IIA (n=1) 14.6-mm (frame 231) 3.2 Soft tissue with fatty hilus ? low likelihood of viable neoplasm TECHNIQUE: Following the intravenous administration of 11.2 mCi of F-18 deoxyglucose via the right antecubital fossa, multiplanar image acquisitions of the neck, chest, abdomen and pelvis to level of mid thigh, obtained at one hour post radiopharmaceutical administration contemporaneously interpreted with the current CT of the neck, chest, abdomen and pelvis, to level of mid thigh, dated 01/22/2020 via coregistration reveals: BLOOD GLUCOSE LEVEL:?? 81 mg/dl?HEIGHT:?67 inches?WEIGHT: 200 lbs. FINDINGS: 1. Increased glucose metabolism is identified in the right upper abdomen corresponding to laina-portal and donta-hepatic soft tissue nodularity, left upper paramedian abdomen, perigastric in location. The calculated maximal standard uptake value is 4.4. The maximal axial diameter of the largest individual metabolic, morphologic abnormality on review of CT of the abdomen dated 01/22/2020 is 21.1-mm (AP). 2. Several foci of increased FDG distribution are manifest within the left and right lobe of the hepatic (2.2) rendering a calculated maximal standard uptake value of 5.9, with a lesion to liver background ratio greater than 2.0. The maximal axial diameter of the largest, most conspicuous metabolic, morphologic abnormality on review of CT of the abdomen dated 01/22/2020 is 41.1-mm (transverse). 3. Innumerable foci of heterogeneous-multifocal increased radiopharmaceutical distribution is noted in the appendicular and axial skeletal structures, too many to individually articulate, generating a calculated maximal standard uptake value of 9.0. 4. Normal physiologic distribution of the radiopharmaceutical is apparent in the splenic parenchyma, both renal units, bladder and visualized intestinal tract. Diffuse radiopharmaceutical concentration is noted in all four quadrants of the abdomen and pelvis. The visualized portion of the cerebral cortex demonstrate symmetric and preserved glucose metabolism. A single asymmetric focus of increased glucose concentration is observed in the right lateral neck involving level IIA registering a calculated maximal standard uptake value of 3.2. The maximal axial diameter of the corresponding morphologic, metabolic abnormality on review of CT of the neck dated 01/22/2020 is 14.6-mm. Fatty hilus is noted on review of CT of the neck dated 01/22/2020. Pertinent CT findings are as follows: CHEST: Donta-cath placement is noted. Bilateral hemithorax pleural effusions demonstrate no evidence of quantitatively significant increased FDG concentration. Bilateral axillary soft tissue densities with fatty hilus reveal no evidence of facilitated FDG uptake. Bilateral breast prostheses are noted. There are no parenchymal densities-nodules defined in the right and left hemithorax with discernible quantitatively significant increased FDG uptake. A nodular density observed in the left upper posterior lung-left upper lobe is ametabolic. ABDOMEN AND PELVIS: Right-left inguinal soft tissue densities are ametabolic. Surgical clips are noted in the bilateral lower hemipelvic mesentery. The uterus appears surgically absent. Additional abdominal subcentimeter retroperitoneal soft tissue reveals no evidence of quantitatively significant increased FDG uptake. SKELETAL: Degenerative changes are noted in the cervical, thoracic and lumbar spine. Scattered primarily lytic changes noted in the axial skeletal structures demonstrate varying degrees of quantitatively significant increased glucose metabolism as previously described. PET/PET/CT Tumor Base -Thigh Init IMPRESSION: 1. ABNORMAL EXAMINATION INDICATIVE OF MALIGNANT-METASTATIC VIABLE NEOPLASM. 2. Increased radiopharmaceutical concentration observed in the bilateral upper abdomen corresponding to soft tissue nodularity-presumed lymphadenopathy fulfills quantitative criteria for viable neoplasm. 3. Viable metastatic disease is noted in several locations within the left and right lobe of the hepatic parenchyma. (Marielena et al, Archives of Surgery, 133:510 1998). 4. Enhanced tracer uptake multifocally apparent in the appendicular, axial skeletal structures fulfills quantitative criteria for viable osseous metastatic disease. 5. The increase in tracer distribution observed in the right lateral neck is associated with a low likelihood of viable neoplasm and likely represents reactive adenopathy. Electronic Signature Sincere Griggs D.O. Accurate Quantification of SUVs for this report are calculated using the exclusive [place] and [place] patented [employer]. Electronically Signed: Sincere Griggs DO at 22:28 EDT Tel , Service support ,
== END ==
PROVIDERS: PCP Student in an Organized Health Care Education/Training Program; Referring Provider Internal Medicine Hematology & Oncology; Visit Provider Internal Medicine Hematology & Oncology
DX: C50.411 Malignant neoplasm of upper-outer quadrant of right female breast (principal); C50.412 Malignant neoplasm of upper-outer quadrant of left female breast; C79.9 Secondary malignant neoplasm of unspecified site; C79.51 Secondary malignant neoplasm of bone
CPT/HCPCS: 78815; A9552

== ENCOUNTER 2020-02-23 16:04 | Emergency (ER) | payer OTHER, SELFPAY ==
[2020-01-10 09:47] VITALS: BMI 31.9
[2020-02-23 16:06] VITALS: BP 142/97; PULSE 112; RESP 12; TEMP 36.7; O2SAT 98; BMI 31.3
--- NOTE | 2020-02-23 16:17 | CT_ITS ---
STUDY: CT BRAIN WITH AND WITHOUT CONTRAST REASON FOR EXAM: Female, 44 years old. NEW ONSET OF SEIZURE, 2 MINS PER EMS, HX-BREAST CA WITH METS TO BONE, SPINE/PELVIS, DIAB, BILATERAL MASTECTOMY WITH RECONSTRUCTION RADIATION DOSAGE (If Supplied By Facility): CTDIvol = ( 44.99 ) mGy, DLP = ( 1580.97 ) mGycm TECHNIQUE: Transaxial CT imaging of the brain was performed pre and post contrast administration. The examination was performed with intravenous administration of IV 75mL Isovue-370. Individualized dose optimization techniques were used for this CT. COMPARISON: None. FINDINGS: There are multiple small, 1- 2 cm, bilateral hemispheric scattered subcortical metastases. There is no acute intracranial hemorrhage, mass effect, midline shift, hydrocephalus or herniation. The skull is intact without destructive lesions with mild diffuse sclerosis. This is nonspecific. CT/Brain/Head W/WO Contrast IMPRESSION: Multiple small bilateral brain metastases. Electronically Signed: Erick Acosta, at 18:47 EDT Tel , Service support ,
[2020-02-23] MEDS: Contrast Allergy Safety Check IV (17:18)
[2020-02-23 17:23] LABS: Absolute Lymphocyte Count 1.75 X10^3/uL (0.83-4.51); Absolute Neutrophil Count 5.3 X10^3/uL (2.0-7.7); Basophil# 0.03 X10^3/uL; Basophil% 0.4 % (0-1); Eosinophil# 0.01 X10^3/uL; Eosinophils% 0.1 % (0-5); Hematocrit 35.1 % (37-47); Hemoglobin 11.1 g/dL (12.0-15.0); Lymphocyte # 1.75 X10^3/ul (4.0); Lymphocyte % 23.9 % (19-41); Mean Corp Hgb Conc 31.6 g/dL (32-36); Mean Corpuscular Hgb 27.6 pg (27.0-32.0); Mean Corpuscular Volume 87.3 fL (81-99); Mean Platelet Vol. 10.3 fl (6.2-12.0); Monocyte# 0.21 X10^3/uL; Monocyte% 2.9 % (0-10); NRBC Flagged by Analyzer 0 % (0-5); Neutrophil % 72.3 % (47-70); Platelet Count 262 K/mm3 (150-450); RBC Distribution Width CV 15.9 % (11.6-14.6); RBC Distribution Width SD 49.5 fl (35.1-43.9); Red Blood Count 4.02 M/mm3 (4.2-5.4); White Blood Count 7.3 K/mm3 (4.4-11.0)
--- NOTE | 2020-02-23 17:32 | ED.VISSUMM ---
- ER Visit Summary Date of Service: 02/23/20 Chief Complaint: Seizure History of Present Illness: The patient is a [address] Adorno and . She has a history of metastatic breast cancer. She got her second round of chemotherapy yesterday. She has a Neupogen patch to begin working at approximately 310 today. Was approximately nursing home finished when she had a seizure. Patient does not have a history of seizures. Her sister witnessed the seizure. She was sitting in a chair and her eyes rolled back. She had bilateral upper and lower extremity shaking. Her mouth was shaking. She began bleeding from her mouth. This lasted approximately 2 minutes. Patient denies any injury. No neck, back, shoulder, wrist, or hip pain. She denies any fever. She reports has had 2-3 episodes of diarrhea today. No blood in her stools or black tarry stools. She denies any headache, numbness, or weakness. Physical Examination: Vitals: Stable. Afebrile. General: Well-nourished and well-developed. Head: Normocephalic atraumatic. HEENT: Superficial laceration of the left side of her tongue. This does not require repair. Neck: Supple, no lymphadenopathy. No JVD. Nontender. Cardiovascular: Regular rate and rhythm. No murmurs. Respiratory: No respiratory distress. Clear to auscultation bilaterally. Abdominal: Soft, nontender, nondistended, normal bowel sounds. No guarding, rebound, or peritoneal signs. Back: Nontender. Extremities: Nontender, no edema. Skin: Normal color, no rash. Neurologic: Alert and oriented ?3. Cranial nerves II through XII are intact. Normal strength and sensation. Psych: Normal affect. Test Results: CBC shows an H&H 11.1 35.1. Segmented neutrophils of 72. Chem-7 shows a chloride of 112 and glucose 193. LFTs show an albumin of 3.1 and alk phos of 620. Clinical Impression(s) from Imaging Studies Brain CT 02/23/20 16:17 IMPRESSION: Multiple small bilateral brain metastases. Electronically Signed: Erick Acosta, at 18:47 EDT Tel , Service support , Emergency Department Course and Treatment: Patient had an IV placed. She was given a gram of Keppra IV. She had no further seizure activity while here. Treatment Plan: The patient was discussed with Dr. Knott and the plan was to transfer up to the [facility]. She was also discussed with the oncologist there. They cannot direct admit the patient tomorrow. Patient is refusing admission to the hospital. She is devastated by this news and needs to go home and see her kids. She will be discharged with Keppra. Instructed to go up to the emergency department [facility] for admission and MRI and further evaluation. Return to the emergency department for any worsening symptoms. Disposition: To home in improved and stable condition. Impression: 1. Breast cancer with metastases to brain. 2. New onset seizures. This note was generated with [employer] dictation software. It may contain incorrect words, spelling, and punctuation that were not noted in review of the chart prior to signing ED Disposition - Plan for ED Patient: Instructions: Treating Epilepsy: Medications Prescriptions: Levetiracetam [Keppra] 500 mg PO BID #60 tablet Referrals: Trevor Stern MD [STAFF PHYSICIAN] - As soon as possible Additional Instructions: Go to the emergency department at [facility] tomorrow for admission and further evaluation.
[2020-02-23 17:35] LABS: ALB/GLOB Ratio 0.9 RATIO (0.9-2.4); AST(SGOT) 22 U/L (15-37); Alanine Aminotransfer ALT/SGPT 27 U/L (13-56); Albumin, Serum 3.1 g/dL (3.2-5.0); Alkaline Phosphatase 620 U/L (45-117); Anion Gap 6 (5-15); BUN 17 mg/dL (7-18); BUN/Creat Ratio 25.6 RATIO (10-20); Calcium,Total 8.7 mg/dL (8.5-10.1); Chloride 112 mmol/L (98-107); Creatinine, Serum 0.66 mg/dL (0.55-1.02); EST Glomerular Filtration Rate 102 mL/min (>60); Est Glom Filt Rate - Afr Amer 124 mL/min (>60); Estimated Creatinine Clearance 104.68 ml/min; Globulin 3.3 g/dL (2.2-4.2); Glucose 193 mg/dL (74-106); Protein, Total 6.4 g/dL (6.4-8.2); Sodium Level 145 mmol/L (136-145)
[2020-02-23 18:47] VITALS: BP 144/107; PULSE 55; RESP 17; O2SAT 98
[2020-02-23] MEDS: levETIRAcetam IV 1,000 MG/100 ML BAG 400 MG IV (18:54)
--- NOTE | 2020-02-23 20:41 | CM.ED ---
Social Work Consult: New Diagnosis of Cancer Informant: Self-referral Met with patient and patient mother in room. Introduced self and social work specialist role. Patient giving permission for this social work specialist to speak openly with patient mother present. Patient and patient mother tearful. Patient states to have support from mother and work family. Patient states plan to go home today and think things over. Patient states to have needed community resources. Active support and listening provided. Yesenia RAMACHANDRAN, DELL
[2020-02-23 20:51] VITALS: BP 120/105; PULSE 100; RESP 20; O2SAT 97
== END 2020-02-23 20:52 | disposition home or self-care (01) ==
LOC: ED 16:29
PROVIDERS: Emergency Provider Emergency Medicine; PCP Student in an Organized Health Care Education/Training Program
DX: C50.919 Malignant neoplasm of unspecified site of unspecified female breast (principal); C79.31 Secondary malignant neoplasm of brain; R56.9 Unspecified convulsions
CPT/HCPCS: 36591; 70470; 80053; 85025; 96365; 99285; J7050; Q9967; A4216

== ENCOUNTER 2020-12-16 11:26 | Emergency (ER) | payer OTHER, SELFPAY ==
[2020-12-16 11:26] VITALS: BP 113/84; PULSE 81; RESP 16; TEMP 36.6; O2SAT 97; BMI 28.2
--- NOTE | 2020-12-16 11:50 | RAD_ITS ---
STUDY: X-RAY - LEFT FOOT CLINICAL: Pain in the left great toe, left foot injury from a fall today. TECHNIQUE: 3 view(s) of the foot. COMPARISON: None. FINDINGS: Normal talus, calcaneus, and tarsal bones. Normal visualized subtalar, talonavicular, calcaneocuboid, tarsal and tarsometatarsal articulations. Normal metatarsi. Normal metatarsophalangeal joint of the great toe. Normal tibial and fibular sesamoid bones. There is a bipartite tibial sesamoid. Normal interphalangeal joint of the great toe. Normal phalanges of the great toe. Normal second through fifth metatarsophalangeal joints. Normal interphalangeal joints and phalanges of the lesser toes. The soft tissue structures are unremarkable. RAD/Foot min 3 Views IMPRESSION: Unremarkable x-ray examination of the left foot. Electronically Signed: Modesto Devine MD at 12:39 EDT Tel , Service support ,
--- NOTE | 2020-12-16 11:50 | RAD_ITS ---
STUDY: X-RAY - LEFT KNEE REASON FOR EXAM: Left knee pain, left knee injury from a fall today. TECHNIQUE: 4 view(s) of the knee. COMPARISON: None. FINDINGS: Normal visualized distal femur. Normal visualized proximal tibia and fibula. Normal proximal tibiofibular articulation. Normal medial femorotibial compartment. Normal lateral femorotibial compartment. Normal patellofemoral articulation. The soft tissue structures are unremarkable. RAD/Knee 4 or More Views IMPRESSION: Unremarkable x-ray examination of the left knee. Electronically Signed: Modesto Devine MD at 12:31 EDT Tel , Service support ,
--- NOTE | 2020-12-16 11:50 | ED.VIS.FALL ---
HPI HPI - Fall History of Present Illness Chief Complaint: Fall Informant: patient Occured/Mechanism Occurred: Today Mechanism/Context: Yes trip Usually ambulates: Without assistance Pain/Injury Location: Bilateral knees, left great toe Pain Location: lower extremity Quality of Pain: Aching and Burning Worsened by: Nothing Relieved by: Nothing Associated Symptoms Associated Symptoms: Positive for Parasthesias and Weakness Narrative Narrative: Patient presents after a fall that occurred today. Patient states she tripped while she was at work. Patient states she landed on both knees. Patient complains of pain in her left great toe and both knees. Patient describes the pain as aching and burning. Patient states nothing makes the pain worse nothing makes the pain better. Patient does admit to some tingling in her left foot. Patient also admits to some weakness in both legs. Patient denies any head injury or loss of consciousness. Patient denies any other injuries. [facility] Medical History (Updated 12/16/20 @ 13:[address] Omid Bailey, DO) Bilateral malignant neoplasm of breast in female Breast cancer Diabetes Diabetes mellitus Family history of breast cancer Former smoker Hyperosmolar coma due to secondary diabetes Late effect of radiation Metastatic breast cancer Neuropathy Pain of both breasts Home Medications atorvastatin 40 mg tablet 40 mg PO DAILY 11/07/19 [History Last Taken Unknown] bupropion HCl 300 mg 24 hr tablet, extended release 300 mg PO QAM 11/07/19 [History Last Taken Unknown] metformin 1,000 mg tablet 1,000 mg PO BID tab 11/07/19 [History Last Taken Unknown] sertraline 50 mg tablet 150 mg PO DAILY tab 11/07/19 [History Last Taken Unknown] promethazine 25 mg PO Q6H PRN PRN #20 tab 11/28/19 [Rx Last Taken Unknown] insulin glargine 10 units SUBCUT QHS 01/09/20 [History Last Taken Unknown] insulin aspart U-100 units SUBCUT TIDCM 02/23/20 [History Last Taken Unknown] levetiracetam 500 mg PO BID #60 tab 02/23/20 [Rx Last Taken Unknown] Allergy/AdvReac Type Severity Reaction Status Date / Time sulfamethoxazole Allergy Severe FULL BODY Verified 12/16/20 11:30 [From Bactrim] RED RASH trimethoprim [From Bactrim] Allergy Severe FULL BODY Verified 12/16/20 11:30 RED RASH amoxicillin Allergy Intermediate RASH AND Verified 12/16/20 11:30 ITCHING azithromycin Allergy Intermediate RASH AND Verified 12/16/20 11:30 ITCHING erythromycin base Allergy Intermediate RASH AND Verified 12/16/20 11:30 ITCHING Penicillins Allergy Intermediate RASH AND Verified 12/16/20 11:30 ITCHING tetracycline Allergy Intermediate RASH AND Verified 12/16/20 11:30 ITCHING Family History (Updated 01/08/20 @ 14:08 by Chiquita Muñoz) Mother Breast cancer Cancer Father Cancer Brain Other Anemia Depression Diabetes Family history of breast cancer Surgical History H/O bilateral breast implants History of bilateral mastectomy Status post bilateral breast reconstruction Social History Smoking Status: Never smoker alcohol intake: never substance use type: does not use additional social history: DOES NOT TAKE ASPIRIN DOES TAKE IBUPROFEN NEEDED ROS ROS ED Constitutional Constitutional ED: Denies chills or fever(s) Eyes Eyes: Reports change in vision; Denies blurry vision ENT ENT ED: Denies rhinorrhea or sore throat Cardiovascular Cardiovascular: Denies chest pain or palpitations Respiratory/Chest Respiratory/Chest: Denies cough or dyspnea Gastrointestinal Gastrointestinal: Denies nausea or vomiting Genitourinary Genitourinary ED: Denies dysuria or hematuria Musculoskeletal Musculoskeletal: Reports back pain; Denies neck pain Integumentary Denies abscess or rash Neurologic Neurologic: Denies headache(s) or weakness Allergic/Immunologic Allergic/Immunologic ED: Denies mouth swelling or urticaria EXAM Physical Exam Const Vital Signs: 12/16/20 11:26 Temperature 97.8 F Temperature Source Temporal Pulse Rate 81 Respiratory Rate 16 Blood Pressure 113/84 H Blood Pressure Mean 93 Pulse Ox 97 Oxygen Delivery Method Room Air Positive well nourished and well developed General Appearance ED: well developed HEENT Reports normocephalic Neck full ROM Extremity Extremity Narrative: There is some tenderness, edema, and ecchymosis over the anterior aspect of the left knee. There are some pain with palpation of the patella. There is no joint effusion. There is no obvious deformity. There is minimal tenderness over the right knee. There is some mild edema and ecchymosis. There is no bony crepitance or step-off. There is good range of motion of the knees. There is also some tenderness over the distal phalanx of the left great toe. There is no edema or ecchymosis. There is no deformity. Range of motion was slightly limited in flexion extension of the IP joint of the left great toe. There is a strong pedal pulse noted. There is no calf tenderness. Neuro oriented x3, CN's II-XII intact bilaterally, moves all extremities, no focal motor deficits and no sensory deficits noted Sensorium / Orientation: alert Psych mental status grossly normal MDM MDM MDM Narrative Medical decision making narrative: X-rays of the left foot were obtained. There are 3 views. On my interpretation, there is no acute fracture. There is no dislocation. There is no soft tissue swelling. Radiologist also interpreted the x-rays and agrees. X-rays of the left knee were obtained. There are 4 views. On my interpretation, there is no acute fracture. There is no dislocation. There is no soft tissue swelling. Radiologist also interpreted the x-rays and agrees. Patient was advised of her findings. Patient was instructed to take Tylenol or ibuprofen as needed for pain. Patient was instructed to ice and elevate her left lower extremity. Patient was instructed to follow-up with her primary care physician in 5 to 7 days. Patient understood and was agreeable with the plan. All questions were answered. Radiography Diagnostic Testing: Radiology Impression Foot X-Ray 12/16/20 11:50 IMPRESSION: Unremarkable x-ray examination of the left foot. Electronically Signed: Modesto Devine MD at 12:39 EDT Tel , Service support , Knee X-Ray 12/16/20 11:50 IMPRESSION: Unremarkable x-ray examination of the left knee. Electronically Signed: Modesto Devine MD at 12:31 EDT Tel , Service support , Discharge Plan Triage Chief Complaint: Fall ED Provider: Omid Bailey Dx/Rx/DC Orders Clinical Impression: Contusion of great toe of left foot, Contusion of left knee, initial encounter Instructions: ED Foot Contusion, ED Contusion, Lower Extremity Prescriptions: No Action metformin 1,000 mg tablet 1,000 mg PO BID RF: 0 sertraline [Zoloft] 50 mg tablet 150 mg PO DAILY RF: 0 bupropion HCl [Wellbutrin XL] 300 mg tablet extended release 24 hr 300 mg PO QAM RF: 0 atorvastatin 40 mg tablet 40 mg PO DAILY RF: 0 promethazine 25 MG tablet 25 mg PO Q6H PRN PRN (Reason: Nausea) Qty: 20 RF: 0 insulin glargine 100 UNITS/ML insulin pen 10 units subcut QHS RF: 0 insulin aspart U-100 100 UNITS/ML insulin pen subcut TIDCM RF: 0 levetiracetam 500 MG tablet 500 mg PO BID Qty: 60 RF: 0 Primary Care Provider: Kevin Adorno Referrals: Kevin Adorno DO [Primary Care Provider] - 5-7 Days Disposition Disposition: Home, Self Care Discharge Date/Time: 12/16/20 14:15
== END 2020-12-16 14:15 | disposition home or self-care (01) ==
PROVIDERS: Emergency Provider Emergency Medicine; PCP Student in an Organized Health Care Education/Training Program
DX: S90.119A Contusion of unspecified great toe without damage to nail, initial encounter (principal); S90.32XA Contusion of left foot, initial encounter; S80.02XA Contusion of left knee, initial encounter; W19.XXXA Unspecified fall, initial encounter
CPT/HCPCS: 73564; 73630; 99282

== ENCOUNTER 2021-02-22 08:28 | Emergency (ER) | payer OTHER, MEDICARE, SELFPAY ==
[2021-02-22 08:29] VITALS: BP 114/85; PULSE 93; RESP 18; TEMP 36.6; O2SAT 98; BMI 29.0
--- NOTE | 2021-02-22 08:42 | EX.ED.GENINJ ---
HPI History of Present Illness Chief Complaint: Laceration Informant: patient and family Onset/Context/Timing Onset: Today Mechanism/Context: Blunt Injury and Fall Quality of Pain: - (Sore) Location: Occipital scalp Current Severity: Mild Maximum Severity: Moderate Worsened by: Palpation Relieved by: Leaving alone Associated Symptoms Associated Symptoms: Negative for Parasthesias, Weakness, Inability to ambulate, Loss of consciousness and Amnesia Narrative Narrative: Patient has recurrent breast cancer with metastases to the brain, and states for the past 5 or 6 months she has had issues with balance and walking that her doctors think is related to something other than these metastases. This morning, she was using her cane but she still stumbled and ended up falling as a result of these chronic symptoms, she has done this before, but this time she hit the back of her scalp on a nearby bed rail causing a laceration. She has discomfort at the site of the scalp, but no headache, nausea, vomiting, new neurologic symptoms, she had no loss of consciousness or amnesia. Tetanus Immunization: 5-10 years [facility] Medical History Bilateral malignant neoplasm of breast in female Breast cancer Diabetes Diabetes mellitus Family history of breast cancer Former smoker Hyperosmolar coma due to secondary diabetes Late effect of radiation Metastatic breast cancer Neuropathy Pain of both breasts Polyneuropathy Home Medications atorvastatin 40 mg tablet 40 mg PO DAILY 11/07/19 [History Last Taken Unknown] metformin 1,000 mg tablet 1,000 mg PO BID tab 11/07/19 [History Last Taken Unknown] sertraline 50 mg tablet 150 mg PO DAILY tab 11/07/19 [History Last Taken Unknown] promethazine 25 mg PO Q6H PRN PRN #20 tab 11/28/19 [Rx Last Taken Unknown] Rolator #1 ea 02/10/21 [Rx Last Taken Unknown] Vegetarian Collagen PO 02/10/21 [History Last Taken Unknown] Vitamin D PO 02/10/21 [History Last Taken Unknown] calcium cit 250 mg-mag 40 mg-D3 125 unit-zinc 3.75 mg-endoscopy technician-anil tablet 1 tab PO DAILY 02/10/21 [History Last Taken Unknown] diphenoxylate-atropine 2.5 mg-0.025 mg tablet 1 tab PO Q6-12H PRN 02/10/21 [History Last Taken Unknown] insulin glargine 100 unit/mL (3 mL) subcutaneous pen 12 unit SUBCUT QHS ml 02/10/21 [History Last Taken Unknown] lapatinib 250 mg tablet 1,000 mg PO DAILY 02/10/21 [History Last Taken Unknown] omeprazole 20 mg capsule,delayed release 20 mg PO DAILY 02/10/21 [History Last Taken Unknown] trastuzumab 150 mg intravenous solution 150 mg .ROUTE .COMPLEX ea 02/10/21 [History Last Taken Unknown] zoledronic acid 4 mg/5 mL intravenous solution 4 mg .ROUTE ml 02/10/21 [History Last Taken Unknown] Allergy/AdvReac Type Severity Reaction Status Date / Time sulfamethoxazole Allergy Severe FULL BODY Verified 02/22/21 08:31 [From Bactrim] RED RASH trimethoprim [From Bactrim] Allergy Severe FULL BODY Verified 02/22/21 08:31 RED RASH amoxicillin Allergy Intermediate RASH AND Verified 02/22/21 08:31 ITCHING azithromycin Allergy Intermediate RASH AND Verified 02/22/21 08:31 ITCHING erythromycin base Allergy Intermediate RASH AND Verified 02/22/21 08:31 ITCHING Penicillins Allergy Intermediate RASH AND Verified 02/22/21 08:31 ITCHING tetracycline Allergy Intermediate RASH AND Verified 02/22/21 08:31 ITCHING Family History Mother Breast cancer Cancer Father Cancer Brain Other Anemia Depression Diabetes Family history of breast cancer Surgical History H/O bilateral breast implants History of bilateral mastectomy Status post bilateral breast reconstruction Social History Smoking Status: Never smoker alcohol intake: never substance use type: does not use additional social history: DOES NOT TAKE ASPIRIN DOES TAKE IBUPROFEN NEEDED ROS ROS ED Constitutional Constitutional ED: Denies chills or fever(s) Eyes Eyes: Denies change in vision or double vision ENT ENT ED: Reports as per HPI; Denies headache(s) Gastrointestinal Gastrointestinal: Denies nausea or vomiting Musculoskeletal Musculoskeletal: Denies extremity pain or neck pain Integumentary Denies Abrasions, rash or wounds Neurologic Neurologic: Reports as per HPI; Denies paresthesias or weakness EXAM Physical Exam Const Vital Signs: 08/29/21 08:29 Temperature 97.9 F Temperature Source Temporal Pulse Rate 93 Respiratory Rate 18 Blood Pressure 114/85 H Blood Pressure Mean 94 Pulse Ox 98 Oxygen Delivery Method Room Air Positive well nourished and well developed General Appearance ED: well developed and NAD HEENT Reports normocephalic HEENT Narrative: Occipital scalp small contusion with 1.5 cm partial-thickness linear clean laceration. No crepitance or depression no other signs of trauma Face and Sinus: normal facial exam and sinuses nontender; Negative for facial tenderness Neck full ROM and supple Resp normal respiratory effort Back/Spine normal ROM and normal to inspection Neuro oriented x3, no focal motor deficits and no sensory deficits noted Sensorium / Orientation: alert Psych mental status grossly normal and thought process normal Skin Rashes: no rashes Trauma: laceration PROC Procedures Lacerations Occipital scalp: Length: 2 cm Depth: Sub Q Shape: Linear Prep: Sterile Conditions and Chlorhexadine Laceration repair: Local (Topical LET) Number of Sutures/Whitman: 2 Suture Information: - (Skin taco) Comment: Tolerated well no complications MDM MDM MDM Narrative Medical decision making narrative: Laceration was repaired see the procedure note. I do not think she needs a CT for this, she meets criteria for observation at this time. Discussed reasons to return she is comfortable with that plan. Staple removal in 5-6 days. Discharge Plan Triage Chief Complaint: Laceration ED Provider: Brian Chowdhury Dx/Rx/DC Orders Clinical Impression: Laceration of scalp Instructions: ED Laceration Scalp Stitches or Whitman Prescriptions: No Action metformin 1,000 mg tablet 1,000 mg PO BID RF: 0 sertraline [Zoloft] 50 mg tablet 150 mg PO DAILY RF: 0 atorvastatin 40 mg tablet 40 mg PO DAILY RF: 0 Herceptin 150 mg recon soln 150 mg .ROUTE .COMPLEX RF: 0 zoledronic acid 4 mg/5 mL solution 4 mg .Route RF: 0 lapatinib [Tykerb] 250 mg tablet 1,000 mg PO DAILY RF: 0 diphenoxylate-atropine [Lomotil] 2.5-0.025 mg tablet 1 tab PO Q6-12H PRNRF: 0 omeprazole 20 mg capsule,delayed release(DR/EC) 20 mg PO DAILY RF: 0 Calcium Citrate Plus [id number] pr-je-[id number]-mg tablet 1 tab PO DAILY RF: 0 Vegetarian Collagen tablet PO RF: 0 Vitamin D tablet PO RF: 0 (DME) Rolator regluar See Rx Instructions .Route .MEDSUPPLY Qty: 1 RF: 0 promethazine 25 MG tablet 25 mg PO Q6H PRN PRN (Reason: Nausea) Qty: 20 RF: 0 insulin glargine 100 unit/mL (3 mL) insulin pen 12 unit subcut QHS RF: 0 Primary Care Provider: Kevin Adorno Referrals: Kevin Adorno DO [Primary Care Provider] - 5 Days for suture removal Disposition Disposition: Home, Self Care
[2021-02-22] MEDS: Lidocaine/Epi/Tetracaine 50 ML 1 APPLIC TOPICAL (09:11)
--- NOTE | 2021-02-22 10:14 | ED.RN ---
pateint aware delay related to patient flow. Aware second physician just started shift.
== END 2021-02-22 10:49 | disposition home or self-care (01) ==
PROVIDERS: Emergency Provider Emergency Medicine; PCP Student in an Organized Health Care Education/Training Program
DX: S01.01XA Laceration without foreign body of scalp, initial encounter (principal); W01.190A Fall on same level from slipping, tripping and stumbling with subsequent striking against furniture, initial encounter
CPT/HCPCS: 12001; 99283

== ENCOUNTER → 2021-02-23 11:04 | Outpatient (CLI) | payer OTHER, MEDICARE, SELFPAY ==
[2021-02-23 11:40] LABS: Erythrocyte Sedimentation Rate 24 mm/hr (0-30)
[2021-02-23 12:06] LABS: Vitamin B12 541 pg/mL (211-911)
[2021-02-23 12:25] LABS: Thyroid Stim Hormone (TSH) 1.44 uIU/mL (0.358-3.74)
[2021-02-24 17:01] LABS: ANTINUCLEAR ANTIBODIES DIRECT Negative (Negative)
[2021-02-25 20:08] LABS: Free Kappa Light Chains 15.2 mg/L (3.3-19.4); Free Lambda Light Chains 10.2 mg/L (5.7-26.3)
== END ==
PROVIDERS: PCP Student in an Organized Health Care Education/Training Program; Referring Provider Psychiatry & Neurology Neurology; Visit Provider Psychiatry & Neurology Neurology
DX: G62.9 Polyneuropathy, unspecified (principal)
CPT/HCPCS: 36415; 82607; 82746; 83883; 84425; 84443; 85652; 86038; 86225; 86235

== ENCOUNTER → 2021-03-17 07:13 | Outpatient (CLI) | payer OTHER, MEDICARE, SELFPAY ==
--- NOTE | 2021-03-17 07:14 | MRI_ITS ---
STUDY: MRI THORACIC SPINE WITH AND WITHOUT CONTRAST REASON FOR EXAM: Female, 45 years old. Rule Out Possible Spinal Stenosis TECHNIQUE: IV DOTAREM 15CC was administered for the contrast portion of the examination. COMPARISON: None. FINDINGS: Normal kyphosis of the thoracic spine. There is no substantial scoliosis. There are multiple marrow replacing lesions within the vertebral bodies of the thoracic spine most prominent at T8 consistent with metastatic disease. No pathologic compression fracture. T1-2, T2-3, T3-4, T4-5, T5-6, T6-7, T7-8, T8-9, T9-10, T10-11, T11-12: Normal endplates. Normal disc hydration, heights and morphology of the corresponding intervertebral discs. Normal central canal and intervertebral neural foramina at the corresponding levels. There are irregular hyperintensities of the central aspect of the lower thoracic spinal cord which demonstrate contrast enhancement worrisome for metastatic disease. Normal conus medullaris that terminates at the L1. The soft tissue structures are unremarkable. MRI/Spine Thoracic W/WO Contrast IMPRESSION: Metastatic disease to the vertebral bodies without pathologic compression fracture and to the mid and lower thoracic spinal cord. Electronically Signed: Sincere Pina MD at 11:28 EDT Tel , Service support ,
--- NOTE | 2021-03-17 07:14 | MRI_ITS ---
STUDY: MRI LUMBAR SPINE WITH AND WITHOUT CONTRAST REASON FOR EXAM: Female, 45 years old. Rule Out Possible Spinal Stenosis TECHNIQUE: Standardized fat and water weighted pulse sequences were obtained in the sagittal and axial planes. IV DOTAREM 15CC was administered for the contrast portion of the examination. COMPARISON: None FINDINGS: T12-L1: Normal endplates. Normal disc height, hydration and morphology. Normal bilateral facet joints. Normal central canal and bilateral lateral recesses. Normal bilateral intervertebral neural foramina. Normal lumbar lordosis. There is no substantial scoliosis. Normal conus medullaris that terminates at the T12/L1. There are multiple marrow replacing lesions of the vertebral bodies of the lumbar spine consistent with metastatic disease. No pathologic compression fracture. L1-2: Normal endplates. Normal disc height, hydration and morphology. Normal bilateral facet joints. Normal central canal and bilateral lateral recesses. Normal bilateral intervertebral neural foramina. L2-3: Mild broad disc protrusion produces mild spinal stenosis and mild bilateral neural foraminal stenosis. L3-4: Normal endplates. Normal disc height, hydration and morphology. Normal bilateral facet joints. Normal central canal and bilateral lateral recesses. Normal bilateral intervertebral neural foramina. L4-5: Mild broad disc protrusion produces mild spinal stenosis and mild bilateral neural foraminal stenosis. L5-S1: Normal endplates. Normal disc height, hydration and morphology. Normal bilateral facet joints. Normal central canal and bilateral lateral recesses. Normal bilateral intervertebral neural foramina. Normal visualized sacral ala. Normal visualized paraspinous soft tissue structures. There is enhancing nodularity of the nerve roots of the cauda equina worrisome for leptomeningeal spread of tumor. MRI/Spine Lumbar W/WO Contrast IMPRESSION: 1. Metastatic disease to the vertebral bodies but no pathologic compression fracture. 2. 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 3. Mild degenerative disc disease. Electronically Signed: Sincere Pina MD at 11:40 EDT Tel , Service support ,
--- NOTE | 2021-03-17 07:14 | MRI_ITS ---
STUDY: MRI CERVICAL SPINE WITH AND WITHOUT CONTRAST REASON FOR EXAM: Female, 45 years old. Rule Out Possible Spinal Stenosis TECHNIQUE: Standardized fat and water weighted pulse sequences were obtained in the sagittal and axial following administration of 15CC DOTAREM IV. COMPARISON: None FINDINGS: Normal foramen magnum and brainstem-cervical cord junction. Normal craniovertebral junction. Normal anterior atlantoaxial articulation. Normal odontoid process. Normal cervical lordosis. There is marrow replacement throughout the vertebral bodies of the cervical spine particularly of C5, C6, and T1 consistent with metastatic disease. No pathologic compression fracture. C2-3: Normal endplates. Normal disc height, signal and morphology. Normal central canal and intervertebral neural foramina. C3-4: Normal endplates. Normal disc height, signal and morphology. Normal central canal and intervertebral neural foramina. C4-5: Normal endplates. Normal disc height, signal and morphology. Normal central canal and intervertebral neural foramina. C5-6: Normal endplates. Normal disc height, signal and morphology. Normal central canal and intervertebral neural foramina. C6-7: Normal endplates. Normal disc height, signal and morphology. Normal central canal and intervertebral neural foramina. C7-T1: Normal endplates. Normal disc height, signal and morphology. Normal central canal and intervertebral neural foramina. Normal cervical cord. No contrast enhancing lesions. Normal visualized soft tissue structures. MRI/Spine Cervical W/WO Contrast IMPRESSION: Metastatic disease to the vertebral bodies but no pathologic compression fracture. No disc protrusion, spinal stenosis, or neural foraminal stenosis. Electronically Signed: Sincere Pina MD at 11:20 EDT Tel , Service support ,
== END ==
PROVIDERS: PCP Student in an Organized Health Care Education/Training Program; Referring Provider Psychiatry & Neurology Neurology; Visit Provider Psychiatry & Neurology Neurology
DX: C50.919 Malignant neoplasm of unspecified site of unspecified female breast (principal); R26.9 Unspecified abnormalities of gait and mobility; R29.898 Other symptoms and signs involving the musculoskeletal system; M48.00 Spinal stenosis, site unspecified; C50.911 Malignant neoplasm of unspecified site of right female breast
CPT/HCPCS: 72156; 72157; 72158; A9575; A4216

== ENCOUNTER → 2021-03-20 08:41 | Outpatient (CLI) | payer OTHER, MEDICARE, SELFPAY ==
--- NOTE | 2021-03-20 08:41 | MRI_ITS ---
EXAM: MR HEAD WITHOUT AND WITH INTRAVENOUS CONTRAST : 1975 CLINICAL INDICATION: breast cancer with brain metastasis TECHNIQUE: Multiplanar and multisequence MR images of the brain were obtained without and with intravenous contrast. This report was created using [employer] report generation technology. CONTRAST: IV 16ml Dotarem COMPARISON: CT brain February 23, 2020 FINDINGS: BRAIN AND EXTRA-AXIAL SPACES: Increased T2 signal intensity noted along the posterior left frontal and parietal lobes corresponding to the previously noted lesions within the brain. There is no abnormal contrast enhancement within these foci. Previously noted lesion within the right frontal lobe has resolved entirely. Increased T2 signal intensity noted along the margins of both ventricles consistent with nonspecific gliosis. No intra- or extra-axial hemorrhage. No evidence of acute infarct. No intracranial mass or mass effect. There is preservation of the hua/white matter interface. Posterior fossa structures are unremarkable. No hydrocephalus. Basal cisterns are patent. SELLA: Unremarkable. Normal sella turcica, pituitary gland, infundibular stalk, optic chiasm and hypothalamus. AUDITORY SYSTEM: Unremarkable. The internal auditory canals are patent. BONES/JOINTS: Unremarkable. No discrete lytic or blastic abnormalities. SINUSES: Unremarkable as visualized. Clear. MASTOID AIR CELLS: Diffuse opacification of the right mastoid sinus. ORBITS: Unremarkable as visualized. Both globes, extraocular muscles, optic nerves and retrobulbar fat appear unremarkable. VASCULATURE: Unremarkable as visualized. Normal flow voids in the major intracranial circulation. MRI/Brain W/WO Contrast IMPRESSION: Residual small abnormal T2 signal intensity within the left frontal and parietal lobes corresponding to the previously noted brain metastases. No abnormal contrast enhancement to suggest residual neoplasm. Resolution of the right frontal lesion. Right mastoiditis. at 1320 Reported and signed by: Graeme Adams MD Electronically Signed: Graeme Adams MD at 13:19 EDT Tel , Service support ,
[2021-03-20 08:55] LABS: CREATININE FINGERSTICK < 0.6 mg/dL (0.55-1.02); EGFR FINGERSTICK > 60.0000 mL/min (>60)
[2021-03-20] MEDS: 0.9% Saline Lock 10 ML Syringe IV (09:42)
== END ==
PROVIDERS: PCP Student in an Organized Health Care Education/Training Program; Visit Provider Psychiatry & Neurology Neurology
DX: C50.919 Malignant neoplasm of unspecified site of unspecified female breast (principal); C79.31 Secondary malignant neoplasm of brain
CPT/HCPCS: 70553; A9575; A4216

== ENCOUNTER 2021-03-20 13:00 | Outpatient (RCR) | payer OTHER, MEDICARE, SELFPAY ==
--- NOTE | 2020-12-25 14:07 | HP.PTEVAL_ITS ---
Patient's Visit Information MUSHTAQ FRANCES is a 45 year old F referred to Physical Therapy by Dr. Trevor Stern MD with a diagnosis of METASTATIC BREAST CA WITH METS TO BRAIN (STABLE). WEAKNESS.. Date of Evaluation: 12/25/20 Physical Therapist: Lisa Garcia, PT, Cert MDT - Visit Plan Frequency: 2-3x /Week Duration: 4-6 Weeks Plan: *METASTATIC CANCER TO BONES, LIVER AND BRAIN*. *LOW BACK PAIN*. MONITOR L FOOT DROP AND WORK ON STRENGTHEING. CONSIDER AFO FOR SAFETY (PATIENT TO DISCUSS FOOT DROP WITH PHYSICIAN). INSTRUCT IN GENTLE SELF CALF STRETCHING. NO PASSIVE ROM OR MANUAL THERAPY. GAIT AND BALANCE TRAINING. ASSISTIVE DEVICE TRAINING. POSTURE CORRECTION/STRENGTHENING, GENERAL STRENGTHENING, ENDURANCE AND COORDINATION TRAINING. INSTRUCTION IN APPROPRIATE BODY MECHANICS AND ACTIVITY MODIFICATIONS. DLS STARTING WITH A NEUTRAL SPINE PROGRESSING ROM TOLERATED. KAYDEN LE ROM, STRETCHING AND STRENGTHENING. *HEP INSTRUCTION*. PATIENT DOES NOT THINK SHE CAN HANDLE PT 3 TIMES A WEEK IN ADDITION TO WORK AT THIS TIME. WE WILL START WITH 2X'S A WEEK. 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 TRIED TO GO BACK TO WORK 4 HOURS A DAY NOVEMBER 10 AND SHE IS STILL WORKING 4 HOURS A DAY, 5 DAYS A WEEK BUT IT IS A STRUGGLE. FELL AT WORK DECEMBER 16 2020 - BRUISED L KNEE - NORMAL X-RAY. PATIENT REPORTS SHE IS STARTING TO THINK WORK IS TOO MUCH. SOCIAL: LIVES ALONE. HAS A DAUGHTER THAT IS 20 YEARS OLD. LIVES IN ONE STORY HOME. 1-2 STEPS INTO HOUSE. FAMILY CLOSE BY. Disability: SS DISABILITY SINCE DECEMBER 2019. 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 Present symptoms: LEG WEAKNESS. LEFT LE WEAKNESS > RIGHT. MY LEGS DON'T WANT TO WORK. PATIENT REPORTS SHE IS DOING OK WITH HER ARMS. SHE STATES SHE IS MOST CONCERNED ABOUT BEING OFF BALANCE AND FALLING. LOW BACK PAIN AND LEG TINGLING. Present since: SEPTEMBER 2020. PATIENT REPORTS HER LEG WEAKNESS AND BALANCE PROBLEMS ARE NEW SINCE GOING BACK TO WORK. Pain Scale: WORST 8/10, LEAST 3/10. Currently: 8/10. Commenced as a result of: CANCER OR CANCER TREATMENT. Symptoms at onset: WEAKNESS IN LEGS. PATIENT REPORTS THE MORE SHE PUSHES HER LEGS THE LESS THEY WILL MOVE. Worse: STANDING, WALKING, DOING LAUNDRY, SWEEPING, LIFTING HER SMAL L DOG. Better: REST, SITTING, LYING DOWN, MOVING SLOW. Disturbed sleep: YES - DUE TO LEG TINGLING. Previous history/Previous treatment: NO BACK SURGERY. NO BACK CATE'S. NO PT OR CHIROPRACTOR. DX'D WITH BREAST CA 2008 TREATED WITH KAYDEN MASECTOMY WITH L LYMPH NODE REMOVAL. ALSO CHEMO AND RADIATION. TREATMENTS ENDED IN DECEMBER 2009. 2010 HYSTERECTOMY. BACK TO WORK 2012 AFTER RECONSTRUCTION SX. WORKED A COUPLE DIFFERENT JOBS UNTIL HIRED AT [employer] APPROX 2018. 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 TRIPPED AND FELL IN NOVEMBER 2019 WITH 5 RIB FX WHICH LED TO DOCTORS FINDING OUT HER CANCER IS BACK. DEVELOPED DIBETES TOO. WAS OFF WORK FOR ABOUT A YEAR UNTIL OCTOBER OF THIS YEAR WHEN STARTED BACK TO WORK 4 HOURS A DAY 5 DAYS A WEEK. Coughing/sneezing/straining: NEGATIVE. Gait: PATIENT REPORTS IT FEEL TO HER LIKE SHE IS DRAGGING HER LEFT LEG. SHE REPORTS SHE HAS TO CONCENTRATE HARD WHEN SHE IS WALKING OR SHE LOSES HER BALANCE. SLOW AND CAUTIOUS. Unexplained weight loss: HAS LOST 80 LBS SINCE OCTOBER OF 2019. Imaging: NO RECENT LOW BACK IMAGING THAT PATIENT IS AWARE OF. PMH/Recent major surgery: CANCER IN BONES, LIVER AND BRAIN. DIABETIC. [facility] - LEAD THE DX OF BRAIN METS. PHYSICIAN RESTRICTIONS: - Objective THIS PATIENT AMBULATES INDEP'LY INTO PT WITHOUT ANY ASSISTIVE DEVICES AND POOR BALANCE. SHE INTERMITTENTLY LOSES HER BALANCE WTIH WALKING AND IN STANDING BUT IS ABLE TO REGAIN INDEP'LY WITHOUT UE ASSIST. PATIENT KNOWS SHE IS A HIGH FALL RISK AND THIS PT RE-INFORCED. DISCUSSED USE OF CANE FOR SAFETY. PATIENT IS ABLE TO TRANSFER FROM SIT TO STAND WITHOUT UE ASSIST BUT THIS IS DIFFICULT. PATIENT IS ABLE TO SLS ON THE RIGHT LE X APPROX 6 SEC AND 2 SEC ON THE LEFT. PELVIS DROPS IN SLS ON THE LLE. STRENGTH: RIGHT LE STRENGTH: HIP 4/5, KNEE 4/5 ANKLE 5/5. LLE: HIP 4-/5, KNEE 4-/5, ANKLE DORSIFLEXION 2+ TO 3-/5. PATIENT HAS PARTIAL FOOT DROP ON LLE AND HIKES HER HIP DURING GAIT. SHE REPORTS SHE WAS UNAWARE OF THIS PRIOR TO EXAM TODAY. LUMBAR MVMT LOSS IN STANDING: FLEX - NIL, EXT - MILD, BSG - MOD. PATIENT DENIES LBP WITH LUMBAR ROM TESTING TODAY. KAYDEN LE LIGHT TOUCH SENSATION APPEARS INTACT AND SYMMETRICAL WITH GROSS TESTING TODAY. KAYDEN LE DURAL SIGNS ARE NEGATIVE. PATIENT HAS POOR POSTURE AND POOR CORE STRENGTH. - Goals Goal 1:: INDEP AND SAFE GAIT ON LEVEL SURFACES AND UP AND DOWN STEPS WITH LEAST ASSSITIVE DEVICE. Goal Time Frame: 6-8 Weeks Goal 2:: INCREASE KAYDEN LE STRENGTH BY ONE GRADE TO EASE ADL'S Goal Time Frame: 6-8 Weeks Goal 3:: PATIENT WILL BE ABLE TO SLS ON EACH LE X > 10 SEC WITHOUT UE ASSIST TO IMPROVE GAIT SAFETY. Goal Time Frame: 6-8 Weeks Goal 4:: DECREASE C/O LBP AND KAYDEN LE SX'S. Goal Time Frame: 6-8 Weeks - Anticipated Interventions Patient/Client Instruction: Educate patient on: Condition, Plan of Care, Risk Factors For the Purpose of:: To improve self management Therapeutic Exercise to Include: Strength training, Endurance training, Balance training, Coordination, Body mechanics, Postural training, Flexibilty training, Gait and locomotor training, Neuromotor development, Dynamic Lumbar Stabilization, Scapular Strength/Stabilization For the Purpose of:: To decrease pain, To increase ROM, To improve muscle performance and motor function, To increase tolerance to activity/condition/position, To improve ability of physical actions for home/community/work/leisure, To improve gait and locomotor functions, To improve endurance, To improve balance, To improve safety with gait, To improve safety Thank you for the opportunity to evaluate your patient. For Medicare and Medicare HMO plans, please review the plan of care and approve it. It will need to be FAXED BACK to us at [phone] for Medicare purposes. For Medicare only, by signing this I certify the plan of care. Please let me know if there are questions or concerns regarding this plan of care. Physician Signature: Date:
--- NOTE | 2021-03-20 13:57 | HP.PTREVAL ---
Dr. Trevor Stern MD, It has been my pleasure to treat MUSHTAQ FRANCES over the last 10 visits for METASTATIC BREAST CA WITH METS TO BRAIN (STABLE). WEAKNESS.. Please see the progress note below for an update on the physical therapy plan of care! Subjective: PATIENT REPORTS HAVING STAT MRI'S OF HER SPINE SHOWING THAT THE CANCER HAS SPREAD TO HER SPINAL CORD. HAVING RADIATION NOW. CHEMO PENDING. STATES SHE HAS LOST MOST OF THE FUNCTION IN HER LEGS OVER THE PAST MONTH AND CAN'T WALK. STATES SHE CAN STAND BUT HASN'T TRIED TO TAKE ANY STEPS. STATES HER DOCTORS TOLD HER TO CONTINUE PT DESPITE THE RESULTS OF HER MRI'S. PATIENT IS GOING TO HAVE THEM SEND A NEW PT ORDER OVER TO US. STATES SHE FELL AT HOME ABOUT 4 WEEKS AGO AND HIT HER HEAD. HAS DEXTER'T PENDING WITH [employer] for AFO'S. PATIENT REPORTS SHE REALLY HAS A LOT OF DEXTER'TS RIGHT NOW BUT WANTS TO FIT PT IN. STARTED TAKING STEROIDS TUESDAY AND BACK PAIN IS BETTER AND TINGLING IN UPPER LEGS IS BETTER. REPORTS SHE LIVES ALONE WITH FRIENDS AND FAMILY HELPING HER AND CHECKING ON HER. 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 Objective/Function: PATIENT WAS SEEN TODAY FOR A RE-ASSESSMENT OF FUNCTION. PATIENT WAS BROUGHT TO PT IN A W/C BY A FRIEND/CO-WORKER THAT IS A NURSE AT [facility]. HER LAST DEXTER'T IN PT WAS ABOUT A MONTH AGO. SINCE THEN SHE HAS BECOME NON-AMBULATORY. SHE HAS FAIR TRUNK SITTING BALANCE AND SIGNIFICANT KAYDEN LE WEAKNESS. SHE IS ABLE TO INDEP'LY MOVE HERSELF FORWARD AND BACKWARDS IN HER W/C SEAT WITH A COMBINATION OF UE AND TRUNK ASSIST. SHE FOLLOWS ALL COMMANDS WELL. KAYDEN LE WEAKNESS IN PRETTY SYMMETRICAL EXCEPT LEFT ANKLE WEAKER THAN RIGHT. KAYDEN HIP FLEX 2-/5, KNEE EXT 2-/5, KNEE FLEX 2-/5, RIGHT ANKLE 2-/5, LEFT ANKLE 1/5. KAYDEN UE STRENGTH GROSSLY 4-5/5 WITH MMT'ING. PATIENT DENIED PAIN THROUGHOUT TESTING TODAY. Plan Plan: RESUME PT IF NEW ORDERS REC'D. CHECK ORDER FOR RESTRICTIONS. PT GENERAL ROM, STRETCHING AND STRENGTHENING TOLERATED. WORK ON TRUNK BALANCE STARTING IN SITTING. USE GAIT BELT IN PARALLEL BARS FOR PRE-GAIT ACTIVIES IN STANDING AND START WITH WEIGHT SHIFTING ABLE/SAFE. AVOID PAIN. Goals Goal 1:: INDEP AND SAFE GAIT ON LEVEL SURFACES AND UP AND DOWN STEPS WITH LEAST ASSSITIVE DEVICE. Goal Time Frame: 6-8 Weeks Goal 2:: INCREASE KAYDEN LE STRENGTH BY ONE GRADE TO EASE ADL'S Goal Time Frame: 6-8 Weeks Goal 3:: PATIENT WILL BE ABLE TO SLS ON EACH LE X > 10 SEC WITHOUT UE ASSIST TO IMPROVE GAIT SAFETY. Goal Time Frame: 6-8 Weeks Goal 4:: DECREASE C/O LBP AND KAYDEN LE SX'S. Goal Time Frame: 6-8 Weeks Anticipated Interventions Patient/Client Instruction: Educate patient on: Condition, Plan of Care, Risk Factors For the Purpose of:: To improve self management Therapeutic Exercise to Include: Strength training, Endurance training, Balance training, Coordination, Body mechanics, Postural training, Flexibilty training, Gait and locomotor training, Neuromotor development, Dynamic Lumbar Stabilization, Scapular Strength/Stabilization For the Purpose of:: To decrease pain, To increase ROM, To improve muscle performance and motor function, To increase tolerance to activity/condition/position, To improve ability of physical actions for home/community/work/leisure, To improve gait and locomotor functions, To improve endurance, To improve balance, To improve safety with gait, To improve safety Please do not hesitate to contact me at [phone] by phone or if you have questions or concerns regarding this new plan of care! Sincerely, Lisa Garcia, PT, Cert MDT
--- NOTE | 2021-05-13 12:33 | HP.PT.NRP ---
MUSHTAQ FRANCES was seen in my office for initial evaluation on 12/25/20. The following Plan of Care was established for this patient: Initial Frequency: 2-3x /Week Initial Duration: 4-6 Weeks Patient/Client Instruction: Educate patient on: Condition, Plan of Care, Risk Factors For the Purpose of:: To improve self management Therapeutic Exercise to Include: Strength training, Endurance training, Balance training, Coordination, Body mechanics, Postural training, Flexibilty training, Gait and locomotor training, Neuromotor development, Dynamic Lumbar Stabilization, Scapular Strength/Stabilization For the Purpose of:: To decrease pain, To increase ROM, To improve muscle performance and motor function, To increase tolerance to activity/condition/position, To improve ability of physical actions for home/community/work/leisure, To improve gait and locomotor functions, To improve endurance, To improve balance, To improve safety with gait, To improve safety This patient was last seen in our office 03/24/21. Pertinent comments regarding their Physical therapy will appear below: This patient has not returned to Physical Therapy and is appropriate to return to MD for further follow-up as needed. At this point I will be discontinuing this patient from physical therapy. I would be happy to see this patient again in the future if found appropriate by the physician. Thank you! Lisa Garcia, PT, Cert MDT
== END 2021-03-20 19:00 | disposition home or self-care (01) ==
LOC: PT 13:00
PROVIDERS: PCP Student in an Organized Health Care Education/Training Program; Referring Provider Internal Medicine Hematology & Oncology; Visit Provider Internal Medicine Hematology & Oncology
DX: C50.919 Malignant neoplasm of unspecified site of unspecified female breast (principal); C79.31 Secondary malignant neoplasm of brain
CPT/HCPCS: 97110; 97163; 97164; 97166; 97530

== ENCOUNTER 2021-08-05 12:24 | Outpatient (CLI) | payer MEDICARE, SELFPAY ==
--- NOTE | 2021-08-05 12:26 | MRI_ITS ---
EXAM: MR HEAD WITHOUT AND WITH INTRAVENOUS CONTRAST CLINICAL INDICATION: metastatic cancer monitoring, hearing loss -- PATIENT HAS A PORT TECHNIQUE: Multiplanar and multisequence MR images of the brain were obtained without and with intravenous contrast. This report was created using [employer] report generation technology. CONTRAST: 15 mL of IV Dotarem. COMPARISON: MRI brain with and without contrast 03/20/2021. FINDINGS: BRAIN AND EXTRA-AXIAL SPACES: T2 FLAIR hyperintensity foci in the periventricular white matter and subcortical white matter of the left middle frontal gyrus and left central lobe convexity are presumably chronic white matter ischemic changes. They were present previously and are unchanged. No intra- or extra-axial hemorrhage. No intracranial mass or mass effect. Posterior fossa structures are unremarkable. No hydrocephalus. Basal cisterns are patent. No abnormal enhancing lesions after IV contrast administration SELLA: Unremarkable. Normal sella turcica, pituitary gland, infundibular stalk, optic chiasm and hypothalamus. AUDITORY SYSTEM: Unremarkable. The internal auditory canals are patent. BONES/JOINTS: No suspicious metastatic disease to the bony calvarium. SINUSES: Unremarkable as visualized. Clear. MASTOID AIR CELLS: Mucosal edema of the right temporal mastoid bone is unchanged. ORBITS: Unremarkable as visualized. Both globes, extraocular muscles, optic nerves and retrobulbar fat appear unremarkable. VASCULATURE: Unremarkable as visualized. Normal flow voids in the major intracranial circulation. MRI/Brain W/WO Contrast IMPRESSION: 1. No MRI evidence of intracranial metastatic disease or acute intracranial abnormality. 2. Chronic white matter ischemic changes in both cerebral hemispheres. 3. Mucosal edema in the right temporal mastoid bone is chronic mastoiditis. 4. No interval change when compared to 03/20/2021. Electronically Signed: Zeke Santiago MD at 15:42 EST ,
--- NOTE | 2021-08-05 12:26 | MRI_ITS ---
We are attempting to reach an attending provider to discuss findings. An addendum with communication details will be sent when the communication is complete. STUDY: MRI CERVICAL SPINE WITH AND WITHOUT CONTRAST REASON FOR EXAM: Female, 46 years old. Metastatic cancer monitoring, myelopathy -- PATIENT HAS A PORT TECHNIQUE: Standardized fat and water weighted pulse sequences were obtained in the sagittal and axial following administration of IV 15mL Dotarem. COMPARISON: MRI cervical spine with and without contrast 03/17/2021. FINDINGS: Normal foramen magnum and brainstem-cervical cord junction. Normal craniovertebral junction. Normal anterior atlantoaxial articulation. Normal odontoid process. Normal cervical lordosis. T1 hypointense of metastatic lesions to the C5, C6, T1 and T3 vertebral bodies were present previously. These barely enhanced with intravenous contrast. C2-3: Normal endplates. Normal disc height, signal and morphology. Normal central canal and intervertebral neural foramina. C3-4: Normal endplates. Normal disc height, signal and morphology. Normal central canal and intervertebral neural foramina. C4-5: Normal endplates. Normal disc height, signal and morphology. Normal central canal and intervertebral neural foramina. C5-6: Normal endplates. Normal disc height. Small posterior bulging disc is unchanged. Normal central canal and intervertebral neural foramina. C6-7: Normal endplates. Normal disc height, signal and morphology. Normal central canal and intervertebral neural foramina. C7-T1: Normal endplates. Normal disc height, signal and morphology. Normal central canal and intervertebral neural foramina. T1-T2, T2-T3, T3-T4 and T4-T5: Normal endplates. Normal disc height, signal and morphology. Normal central canal and intervertebral neural foramina. Abnormal solitary enhancing intramedullary metastases in the ventral spinal cord at the upper C3 vertebral body level is a new finding. Normal remaining cervical spinal cord and the included upper thoracic spinal cord. Normal included portions of the brainstem and cerebellum. Normal visualized soft tissue structures. MRI/Spine Cervical W/WO Contrast IMPRESSION: 1. 4.6 mm enhancing intramedullary metastases in the ventral spinal cord at the upper C3 vertebral body level, new since 03/17/2021. 2. Minimally enhancing bone metastases to C5, C6, T1 and T3 are unchanged. Electronically Signed: Zeke Santiago MD at 15:37 EST ,
[2021-08-05 12:56] LABS: CREATININE FINGERSTICK 0.7 mg/dL (0.55-1.02); EGFR FINGERSTICK > 60.0000 mL/min (>60)
[2021-08-05] MEDS: 0.9% Saline Lock 10 ML Syringe IV (14:08)
== END 2021-08-05 23:59 | disposition home or self-care (01) ==
PROVIDERS: PCP Student in an Organized Health Care Education/Training Program; Referring Provider Psychiatry & Neurology Neurology; Visit Provider Psychiatry & Neurology Neurology
DX: C50.919 Malignant neoplasm of unspecified site of unspecified female breast (principal); G99.2 Myelopathy in diseases classified elsewhere; C80.1 Malignant (primary) neoplasm, unspecified; H91.90 Unspecified hearing loss, unspecified ear
CPT/HCPCS: 70553; 72156; A9575; A4216

== ENCOUNTER 2021-08-10 15:27 | Outpatient (CLI) | payer MEDICARE, SELFPAY ==
--- NOTE | 2021-08-10 15:28 | MRI_ITS ---
EXAM: MR THORACIC SPINE WITHOUT AND WITH INTRAVENOUS CONTRAST CLINICAL INDICATION: metastatic cancer monitoring, myelopathy, recheck post chemo TECHNIQUE: Multiplanar and multisequence MR images of the thoracic spine without and with intravenous contrast. This report was created using [employer] report [employer] technology. CONTRAST: IV 15mL Dotarem COMPARISON: Mar 17 2021 8:47am FINDINGS: VERTEBRAE: Multilevel metastatic disease to the thoracic spine is stable. This includes T1 T3 and T8. No fracture. Normal alignment. There is preservation of the normal thoracic kyphosis. No scoliosis. DISCS/SPINAL CANAL/NEURAL FORAMINA: Unremarkable. Normal disc height and morphology. Normal spinal canal and neuroforamina. SPINAL CORD: Unremarkable. Normal in signal and morphology. Normal conus medullaris. SOFT TISSUES: Unremarkable. MRI/Spine Thoracic W/WO Contrast IMPRESSION: Multilevel metastatic disease to the thoracic spine is stable. Electronically Signed: Kris Blanchard MD at 18:19 EST ,
--- NOTE | 2021-08-10 15:28 | MRI_ITS ---
EXAM: MR LUMBAR SPINE WITHOUT AND WITH INTRAVENOUS CONTRAST CLINICAL INDICATION: metastatic cancer monitoring, myelopathy --recheck post chemo TECHNIQUE: Multiplanar and multisequence MR images of the lumbar spine without and with intravenous contrast. This report was created using [employer] report generation technology. CONTRAST: IV dotarem 15ml COMPARISON: Mar 17 2021 FINDINGS: VERTEBRAE: See below. SPINAL CORD: There are stable lesions in the region of the conus medullaris. Normal conus medullaris that terminates at the L1 . SOFT TISSUES: Unremarkable. DISCS/SPINAL CANAL/NEURAL FORAMINA: L1-L2: Unremarkable. Normal disc height and morphology. Normal spinal canal, lateral recesses and neuroforamina. L2-L3: L2-3: Loss of intervertebral disc height. There is endplate spondylosis of the vertebral body. Normal central canal and intervertebral neuroforamina. There is bilateral facet arthropathy. Central disc bulge. L3-L4: L3-4 to L5-S1: Loss of intervertebral disc height. There is endplate spondylosis of the vertebral body. Normal central canal and intervertebral neuroforamina. There is bilateral facet arthropathy. L4-L5: Unremarkable. Normal disc height and morphology. Normal spinal canal, lateral recesses and neuroforamina. L5-S1: See above. OTHER FINDINGS: There are multiple lesions noted in the bones which are likely related to metastatic disease. These are stable. There are T2 nodularity of the nerve roots of the cauda equina worrisome for leptomeningeal spread of tumor. MRI/Spine Lumbar W/WO Contrast IMPRESSION: 1. There are multiple lesions noted in the bones which are likely related to metastatic disease. These are stable. 2. There are stable lesions in the region of the conus medullaris. Electronically Signed: Kris Blanchard MD at 20:28 EST ,
[2021-08-17 13:38] LABS: KEPPRA (LEVETIRACETAM) 7.2 ug/mL (10.0-40.0)
== END 2021-08-10 23:59 | disposition home or self-care (01) ==
PROVIDERS: PCP Student in an Organized Health Care Education/Training Program; Visit Provider Psychiatry & Neurology Neurology
DX: G43.909 Migraine, unspecified, not intractable, without status migrainosus (principal); C79.9 Secondary malignant neoplasm of unspecified site; G99.2 Myelopathy in diseases classified elsewhere; C50.919 Malignant neoplasm of unspecified site of unspecified female breast; C80.1 Malignant (primary) neoplasm, unspecified
CPT/HCPCS: 36415; 72157; 72158; 80177; 82140; A9575

== ENCOUNTER 2021-08-24 14:34 | Outpatient (RCR) | payer MEDICARE, SELFPAY ==
--- NOTE | 2021-08-24 16:29 | HP.PTEVAL_ITS ---
Patient's Visit Information MUSHTAQ FRANCES is a 46 year old F referred to Physical Therapy by Dr. Trevor Stern MD with a diagnosis of . Date of Evaluation: 08/24/21 Physical Therapist: Andreina Hernandez DPT - Visit Plan Frequency: 2x /Week Duration: 4 Weeks Plan: Focus on LE and core strength/stabilization with functional mobility- gait belt - Subjective Patient reports that she was doing home therapy because she was struggling to get in/out of [facility]. Her insurance and has changed and is no longer allowed to do in home therapy so they progressed her to outpatient PT. Her cancer has spread to T5-T6 and is now on her C3 spinal cord. She is doing radiation again and will start treatments again. Goes to radiation daily- it makes her a little tired- she has 2 more to go- she is still doing chemo so she thinks that she resume her current dosage. At home PT she was working on lower extremity strength and N/T from her buttocks down. She was unable to stand and get up from the chair. She has drop foot on the left- she has solid AFO's on both sides- she wears them when she is out but they put a lot of pressure on her shins and ankles. She uses a w/c and her rollerator at home. She can use the counters to walk around her kitchen and will catch her left foot if she is not careful. Fully I with cooking, cleaning, bathing and dressing. She does drive but its very far and few between due to not feeling comfortable. She has two step in/out of her home- she has a ramp and uses her w/c to go up backwards. She does live alone. No pain- sleep: disturbed thinks she maybe overly tired- she feels that she has a lot of sharp jolts in her feet/legs. She has not had any recent falls. PMHx/Meds: no changes since neurology. No change in bowel/bladder-Goals: get more strength built up, walk without a walker, wants to be able to walk without braces. - Objective Posture: FH,RS can correct with verbal cues but does not maintain. Gait: antalgic- uses rollerator- decreased heel/toe due to AFO's, wide YAN. HR.TR: unable due to AFO's. Stairs: asc/desc 8 non recip with SBA and bilateral HR. Balance: see FGA. ROM: WFL. Sensation: diminished to gross touch in bilateral LE below the knees. Strength: Core: poor, Left: Hip: flexion: 3+/5, Abd: 4-/5, IR/ER: 3/3, Abd: 4/5, Knee: 4-/5, Ankle: not tested, Right: Hip: flexion: 4-/5, Abd: 4/5, IR/ER: 3/3, Abd: 4/5, Knee: 4/5, Ankle: not tested,. Flex: HS: moderate, Gastroc: moderate - Balance/Special Test Scores Functional Gait Assessment Score: 10 % Disability: 66.6700 Lower Extremity Functional Score: 18 TUG Test Time Seconds: 18 30 Second Chair Rise Test Seconds: 10 - Goals Goal 1:: Patient will be I with HEP and progression Goal Time Frame: 4-6 Weeks Goal 2:: Patient will ambulate <300 feet with LRD Goal Time Frame: 4-6 Weeks Goal 3:: Patient will asc/desc 8 recip with 1 HR Goal Time Frame: 4-6 Weeks Goal 4:: Patient will perform 15 sit to stands in 30 sec Goal Time Frame: 4-6 Weeks Goal 5:: Patient will increase her FGA to within normal limits for her age group Goal Time Frame: 4-6 Weeks - Rehabilitation Potential Physical Therapy Diagnosis: Patient presents with hypomobility- she has decreas ed LE and core strength/stabilization, proprioception and muscular endurance leading to poor balance and decreased ability to safely perform ADL's. Rehabilitation Potential: Fair - Anticipated Interventions Patient/Client Instruction: Educate patient on: Benefits of Fitness Program Therapeutic Exercise to Include: Strength training, Endurance training, Balance training, Coordination, Agility training, Body mechanics, Postural training, Flexibilty training, Gait and locomotor training, Neuromotor development, Dynamic Lumbar Stabilization, Scapular Strength/Stabilization For the Purpose of:: To improve muscle performance and motor function Thank you for the opportunity to evaluate your patient. For Medicare and Medicare HMO plans, please review the plan of care and approve it. It will need to be FAXED BACK to us at [phone] for Medicare purposes. For Medicare only, by signing this I certify the plan of care. Please let me know if there are questions or concerns regarding this plan of care. Physician Signature: Date:
--- NOTE | 2021-12-10 14:23 | HP.PT.NRP ---
MUSHTAQ FRANCES was seen in my office for initial evaluation on 08/24/21. The following Plan of Care was established for this patient: Initial Frequency: 2x /Week Initial Duration: 4 Weeks Patient/Client Instruction: Educate patient on: Benefits of Fitness Program Therapeutic Exercise to Include: Strength training, Endurance training, Balance training, Coordination, Agility training, Body mechanics, Postural training, Flexibilty training, Gait and locomotor training, Neuromotor development, Dynamic Lumbar Stabilization, Scapular Strength/Stabilization For the Purpose of:: To improve muscle performance and motor function This patient was last seen in our office . Pertinent comments regarding their Physical therapy will appear below: Patient has not attended PT in over 30 days- appropriate to be d/c and return to MD for further evaluation as needed. At this point I will be discontinuing this patient from physical therapy. I would be happy to see this patient again in the future if found appropriate by the physician. Thank you! Andreina Hernandez, DPT Balance/Gait/Functional tests - Balance/Special Test Scores Functional Gait Assessment Score: 10 % Disability: 66.6700 Lower Extremity Functional Score: 18 TUG Test Time Seconds: 18 Tug Test: <20 sec.=mostly independent 30 Second Chair Rise Test Seconds: 10
== END 2021-08-24 19:00 | disposition home or self-care (01) ==
LOC: PT 14:34
PROVIDERS: PCP Student in an Organized Health Care Education/Training Program; Referring Provider Internal Medicine Hematology & Oncology; Visit Provider Internal Medicine Hematology & Oncology
DX: C50.919 Malignant neoplasm of unspecified site of unspecified female breast (principal); C79.40 Secondary malignant neoplasm of unspecified part of nervous system; R29.898 Other symptoms and signs involving the musculoskeletal system
CPT/HCPCS: 97162

== ENCOUNTER 2021-10-02 06:28 | Outpatient (CLI) | payer MEDICARE, SELFPAY ==
--- NOTE | 2021-10-02 07:50 | TELEMED_ITS ---
[facility] has confirmed receipt of a request for visit. This document confirms receipt of the order initiating the consult. To find the results of the consultation, please view the patient's reports for the scanned Telemed Consult.
== END 2021-10-02 23:59 | disposition home or self-care (01) ==
PROVIDERS: PCP Student in an Organized Health Care Education/Training Program; Referring Provider Psychiatry & Neurology Neurology; Visit Provider Psychiatry & Neurology Neurology
DX: G40.909 Epilepsy, unspecified, not intractable, without status epilepticus (principal)
CPT/HCPCS: 95819

== ENCOUNTER → 2022-03-17 | Outpatient (CLI) | payer MEDICARE, SELFPAY ==
--- NOTE | 2022-03-17 08:30 | PET_ITS ---
PROCEDURE: WHOLE BODY PET/CT SCAN, MID SKULL TO MID THIGH REASON FOR EXAM: History of breast cancer with metastasis to bone and liver, restaging. Bilateral breast cancer initially diagnosed in 2008 with neoadjuvant chemotherapy, bilateral mastectomy COMPARISON EXAMINATION: 01/22/2020. TECHNIQUE: Following the intravenous administration of 14.07 mCi of F-18 FDG, multiplanar imaging acquisitions of the neck, chest, abdomen/pelvis to the mid thigh, obtained at 1 hour post radiopharmaceutical administration. Interpretation is with co-registeration of similar anatomic distribution of CT. Findings: Normal and physiologic distribution of radioisotope identified in the expected intensity of the hepatic and splenic parenchyma, urinary tract and gastrointestinal structures. There is gross anatomic distribution of the intracranial contents. INDEX LESION SIZE SUV INTERPRETATION: 1. Hypodense lesions and associated abnormal FDG activity involving the liver are NO longer identified. 2. Upper abdominal adenopathy with abnormal FDG activity on prior PET scan completely resolved without residual adenopathy/abnormal FDG activity. 3. Multifocal osteoblastic metastasis in the proximal appendicular and axial osseous structures are redemonstrated although overall lesser intense activity when compared side by side. For instance, current maximum SUV measures up to 3.7 (previously measured up to 9.0) some of the sclerotic lesions appear new since the prior PET scan, however, do not demonstrate abnormal FDG activity. For instance, L2 posterior/pedicular sclerotic lesion on image 158 of series 202 does not demonstrate abnormal FDG activity but is new when compared to the prior PET scan. CT portion of the exam: Bilateral breast implants. Surgical clips of the posterior adipose tissue of the chest wall. Right jugular chest port present with redundant catheter entering the right jugular vein and tip of the catheter in the lower jugular vein. The right chest port is retracted as compared to the prior study (previously extend into the lower SVC). No pulmonary nodules or masses. Pleural effusions have resolved. Normal heart and pericardium. Normal mediastinum. Normal hilar regions. Normal unenhanced pulmonary arteries. Normal aorta arch and descending thoracic aorta. Normal liver. Normal gallbladder and extrahepatic biliary system. Normal spleen. Normal pancreas. Normal bilateral adrenal glands. Normal right kidney. Normal left kidney. Normal visualized stomach. Normal small intestine. There are multiple colonic diverticula consistent with diverticulosis. There is non-visualization of the appendix. Normal abdominal aorta. Normal inferior vena cava. Normal urinary bladder. Numerous sclerotic lesions not substantially changed. No obvious new sclerotic lesion present. Some of the ribs demonstrate callus suggesting healing/healed fractures. PET/PET/CT Tumor Base -Thigh Subs IMPRESSION: 1. Since 01/22/2020, favorable change/partial response. Hepatic metastasis and upper abdominal adenopathy evident on prior PET scan have RESOLVED. 2. Osseous metastasis of the proximal appendicular and axial skeleton with overall decreased FDG activity when compared to prior exam. Although there are new scattered sclerotic lesions, many of the lesions do not demonstrate abnormal FDG activity. 3. Small pleural effusions have resolved. 4. Interval retraction of right jugular chest port with tip of the catheter in the lower jugular vein (redundant catheter in the lower neck soft tissues). Recommend correlating with clinical function and replacement, if needed. 5. Chronic changes, as detailed above. Electronically Signed: Walker Butts MD (Brooks) at 16:06 EDT Reading Location ID and State: / [place] , Service support ,
== END | disposition home or self-care (01) ==
LOC: ONC 08:11
PROVIDERS: PCP Student in an Organized Health Care Education/Training Program; Referring Provider Internal Medicine Hematology & Oncology; Visit Provider Internal Medicine Hematology & Oncology
DX: C50.911 Malignant neoplasm of unspecified site of right female breast (principal); C78.7 Secondary malignant neoplasm of liver and intrahepatic bile duct; C79.49 Secondary malignant neoplasm of other parts of nervous system; C79.31 Secondary malignant neoplasm of brain; C79.9 Secondary malignant neoplasm of unspecified site; C50.912 Malignant neoplasm of unspecified site of left female breast; Z17.0 Estrogen receptor positive status [ER+]
CPT/HCPCS: 78815; A9552

== ENCOUNTER 2023-01-24 12:00 | Outpatient (RCR) | payer MEDICARE, SELFPAY ==
--- NOTE | 2022-11-29 15:06 | HP.PTEVAL_ITS ---
Patient's Visit Information MUSHTAQ FRANCES is a 47 year old F referred to Physical Therapy by Dr. Mike Knott DO with a diagnosis of Muscular deconditioning. Date of Evaluation: 11/29/22 Physical Therapist: rKis Sepulveda, PT, ATC - Visit Plan Frequency: 3x /Week Duration: 4-6 Weeks Plan: B LE strengthening, balance and proprio, core strengthening, gait training, nustep, and HEP - Subjective Pt reports she was diagnosed with bone, lung, and brain cancer in 2020 and has been receiving chemo over this span. Pt reports her markers are coming down a lot, but she is still receiving treatment. Pt notes she has become really weak over this time span. Pt notes even little tasks she performs around her house tend to wear her out, such as laundry. Pt reports she has stairs in her house which she is able to negotiate one step at a time. Pt reports she has good sensation in her feet, but notes she has drop foot in her L LE which makes it difficult to ambulate without braces on. Pt reports she does have some LBP and R LE pain which is intermittent in nature. Pt reports she has fallen in the past, with the most recent one being where she tripped on her L foot. 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 - Objective Neuro: B LE sensation is WNL to light touch. MMT: B hip flex, abd, and add 4/5 throughout. B knee flex and ext is grossly 4-/5 throughout. Gait: Pt is able to ambulate 680 feet until needing to rest secondary to fatigue and LE weakness. Pt experienced several episodes of LOB throughout her walk, but no falls occurred. Stairs: Pt is able to negotiuate one flight of stairs, but has to negotiate the stairs with B UE's - Balance/Special Test Scores Lower Extremity Functional Score: 30 - Goals Goal 1:: Increase B LE strength x 1 grade to aid with stair negotiation Goal Time Frame: 4-6 Weeks Goal 2:: Pt will be able to ambulate greater than 1000 feet to aid with community ambulation Goal Time Frame: 4-6 Weeks Goal 3:: Pt will be able to negotiate 10 stairs with one UE to aid with returning to work Goal Time Frame: 4-6 Weeks Goal 4:: I with HEP - Rehabilitation Potential Physical Therapy Diagnosis: Pt has B LE weakness, unsteady gait, and difficulty with performing IADL's secondary to muscular deconditioning Rehabilitation Potential: Good - Anticipated Interventions Patient/Client Instruction: Educate patient on: Condition, Plan of Care For the Purpose of:: To improve self management Therapeutic Exercise to Include: Strength training, Endurance training, Balance training, Gait and locomotor training, Active ROM, Dynamic Lumbar Stabilization For the Purpose of:: To improve muscle performance and motor function, To improve ability to perform ADL's, To increase tolerance to activity/condition/position Thank you for the opportunity to evaluate your patient. For Medicare and Medicare HMO plans, please review the plan of care and approve it. It will need to be FAXED BACK to us at [phone] for Medicare purposes. For Medicare only, by signing this I certify the plan of care. Please let me know if there are questions or concerns regarding this plan of care. Physician Signature: Date:
--- NOTE | 2023-03-23 13:02 | HP.PTDCNRP_ITS ---
Patient Information Patient Information: MUSHTAQ FRANCES was seen in my office for initial evaluation on 11/29/22. The following Plan of Care was established for this patient: POC Established Initial Frequency: 3x /Week Initial Duration: 4-6 Weeks Anticipated Interventions Patient/Client Instruction: Educate patient on: Condition and Plan of Care For the Purpose of:: To improve self management Therapeutic Exercise to Include: Strength training, Endurance training, Balance training, Gait and locomotor training, Active ROM and Dynamic Lumbar Stabiliz ation For the Purpose of:: To improve muscle performance and motor function, To improve ability to perform ADL's and To increase tolerance to activity/condition/position Last Seen Last Seen: This patient was last seen in our office . Pertinent comments regarding their Physical therapy will appear below: Pt was treated for 8 PT visits for debilitation through the date of 01/24/23. Pt has not returned through todays date and is discontinued at this time. At this point I will be discontinuing this patient from physical therapy. I would be happy to see this patient again in the future if found appropriate by the physician. Thank you! Kris Sepulveda, PT, ATC Balance/Gait/Functional tests Balance/Special Test Scores Lower Extremity Functional Score: 30
== END 2023-01-24 19:00 | disposition home or self-care (01) ==
LOC: PT 12:00
PROVIDERS: PCP Student in an Organized Health Care Education/Training Program; Referring Provider Internal Medicine Hematology & Oncology; Visit Provider Internal Medicine Hematology & Oncology
DX: R29.898 Other symptoms and signs involving the musculoskeletal system (principal)
CPT/HCPCS: 97110; 97161

== ENCOUNTER → 2023-05-17 | Outpatient (CLI) | payer MEDICARE, SELFPAY ==
--- NOTE | 2023-05-17 12:38 | MRI_ITS ---
STUDY: MRI BRAIN WITH AND WITHOUT CONTRAST REASON FOR EXAM: Female, 47 years old. SECONDARY MALIGNANT NEOPLASM OF BRAIN History of breast cancer with metastasis to bone and liver, restaging. Bilateral breast cancer initially diagnosed in 2008 with neoadjuvant chemotherapy, bilateral mastectomy TECHNIQUE: Standardized multiplanar fat and water weighted pulse sequences were obtained. IV 17ml Clariscan was administered for the contrast portion of the examination. COMPARISON: MRI of the brain dated July 12, 2022. MRI of the brain dated March 20, 2021. Head CT dated February 23, 2020 FINDINGS: There is mild cerebral atrophy with widening of the extra-axial spaces and ventricular dilatation. There are a limited number of small white matter hyperintensities, distributed throughout the deep white matter tracts of the cerebral hemispheres, consistent with mild chronic white matter ischemic changes. There is no evidence for recent intracranial ischemia or other cause of cytotoxic edema on diffusion weighted imaging (DWI). Normal T2* images of the brain without demonstrated susceptibility artifact. There is no demonstrated hemosiderin stain. No enhancing brain parenchymal lesions are present. There is no abnormal thickening or enhancement of the meninges or dura. Normal bilateral basal ganglia. Normal thalami. There is no extra-axial fluid accumulation. Normal flow voids within the major intracranial circulation suggesting patency by spin echo criteria. Normal venous enhancement. There is no enhancing intra-axial or extra-axial abnormality. Normal sella turcica, pituitary gland, infundibular stalk, optic chiasm and hypothalamus. Normal tectal plate and pineal gland. Normal midbrain, moise and medulla. Normal cerebellum. Normal basal cisterns. Normal bilateral temporal bones. Normal bilateral internal auditory canals. No demonstrated orbital abnormality, within the constraints of a routine brain study. Normal visualized paranasal sinuses. Normal calvarium and skull base. Normal visualized soft tissue structures. Normal visualized upper cervical spine. MRI/Brain W/WO Contrast IMPRESSION: 1. Chronic ischemic changes of the brain, as described above. 2. No enhancing brain parenchymal lesions are present. There is no abnormal thickening or enhancement of the meninges or dura. Electronically Signed: Nathan Bloom MD at 14:25 EST ,
[2023-05-17 13:17] LABS: CREATININE FINGERSTICK < 0.9 mg/dL (0.55-1.02); EGFR FINGERSTICK > 60.0000 mL/min (>60)
[2023-05-17] MEDS: 0.9 % NaCl (Sterile) Posiflush 10 mL IV (13:48)
== END | disposition home or self-care (01) ==
LOC: MRI 12:34
PROVIDERS: PCP Student in an Organized Health Care Education/Training Program; Referring Provider Specialist; Visit Provider Specialist
DX: C79.31 Secondary malignant neoplasm of brain (principal)
CPT/HCPCS: 70553; A9575; A4216

== ENCOUNTER 2023-06-03 16:29 | Observation (INO) | payer MEDICARE, SELFPAY ==
[2023-06-03] VITALS (8 sets, daily range): BP systolic 92–141; BP diastolic 64–100; PULSE 94–103; RESP 16–20; TEMP 36.1–37.2; O2SAT 96–98; BMI 30.6; BMI 29.3
--- NOTE | 2023-06-03 17:20 | EX.ED.DYSGE1 ---
HPI History of Present Illness Chief Complaint: Abd Pain Detail of Chief Complaint: Vomiting Informant: patient, parent and family Narrative Narrative: Patient presents to the emergency department complaint of vomiting that is been going on for about 4 weeks. She has been seen by her oncologist last week who gave her fluids and steroids and discontinued her chemo. Patient then had an EGD recently that apparently was unremarkable after that visit. Patient also seen 2 days ago at emergency department in [place] for the same complaint. Patient also complains of a headache for weeks. She has history of metastatic breast cancer with mets to the bone as well as the brain. She last had an MRI over a month ago and apparently per mother it looked good . Patient has been unable to take her medications for the last 4 weeks. [facility] Medical History Bilateral malignant neoplasm of breast in female Breast cancer Diabetes Diabetes mellitus Family history of breast cancer Former smoker Hyperosmolar coma due to secondary diabetes Late effect of radiation Metastatic breast cancer Neuropathy Pain of both breasts Polyneuropathy Home Medications atorvastatin 40 mg tablet 40 mg PO DAILY Check with primary doctor 11/07/19 [History Last Taken Unknown] metformin 1,000 mg tablet 1,000 mg PO BID Check with primary doctor 11/07/19 [History Last Taken Unknown] sertraline 50 mg tablet (Zoloft) 150 mg PO DAILY Check with primary doctor 11/07/19 [History Last Taken Unknown] promethazine 25 mg tablet 25 mg PO Q6H PRN PRN Nausea #20 tabs 11/28/19 [Rx Last Taken Unknown] Rolator #1 ea 02/10/21 [Rx Last Taken Unknown] Vegetarian Collagen PO 02/10/21 [History Last Taken Unknown] Vitamin D PO 02/10/21 [History Last Taken Unknown] calcium cit 250 mg-mag 40 mg-D3 125 unit-zinc 3.75 mg-helicopter dispatcher-anil tablet (Calcium Citrate Plus) 1 tab PO DAILY 02/10/21 [History Last Taken Unknown] diphenoxylate-atropine 2.5 mg-0.025 mg tablet (Lomotil) 1 tab PO Q6-12H PRN 02/10/21 [History Last Taken Unknown] insulin glargine 100 unit/mL (3 mL) subcutaneous pen 12 unit subcut QHS 02/10/21 [History Last Taken Unknown] trastuzumab 150 mg intravenous solution (Herceptin) 150 mg .Route .COMPLEX 02/10/21 [History Last Taken Unknown] zoledronic acid 4 mg/5 mL intravenous solution 4 mg .Route 02/10/21 [History Last Taken Unknown] carvedilol 6.25 mg tablet 6.25 mg PO BID 11/24/21 [History Last Taken Unknown] famotidine 20 mg tablet 20 mg PO BID 11/24/21 [History Last Taken Unknown] magnesium chloride 71.5 mg (magnesium chloride) tablet,delayed release (Slow-Mag) 71.5 mg PO BID 11/24/21 [History Last Taken Unknown] tucatinib 150 mg tablet 300 mg PO Q12H 11/24/21 [History Last Taken Unknown] Allergy/AdvReac Type Severity Reaction Status Date / Time sulfamethoxazole Allergy Severe FULL BODY Verified 06/03/23 16:30 [From Bactrim] RED RASH trimethoprim [From Bactrim] Allergy Severe FULL BODY Verified 06/03/23 16:30 RED RASH amoxicillin Allergy Intermediate RASH AND Verified 06/03/23 16:30 ITCHING azithromycin Allergy Intermediate RASH AND Verified 06/03/23 16:30 ITCHING erythromycin base Allergy Intermediate RASH AND Verified 06/03/23 16:30 ITCHING Penicillins Allergy Intermediate RASH AND Verified 06/03/23 16:30 ITCHING tetracycline Allergy Intermediate RASH AND Verified 06/03/23 16:30 ITCHING Family History Mother Breast cancer Cancer Father Cancer Brain Other Anemia Depression Diabetes Family history of breast cancer Myocardial infarction Surgical History H/O bilateral breast implants History of bilateral mastectomy Status post bilateral breast reconstruction Social History (Updated 03/22/22 @ 11:47 by Elvia Lorenzana) Smoking Status: Never smoker alcohol intake: never substance use type: does not use seatbelt use: always additional social history: DOES NOT TAKE ASPIRIN DOES TAKE IBUPROFEN NEEDED ROS ROS ED Review of Systems ROS Unobtainable: other Constitutional Constitutional ED: Reports lethargy; Denies chills, fever(s), sweats or weight loss Eyes Eyes: Denies blurry vision, change in vision or diplopia ENT ENT ED: Denies rhinorrhea or sore throat Cardiovascular Cardiovascular: Reports chest pain and racing heartbeat; Denies orthopnea Respiratory/Chest Respiratory/Chest: Reports dyspnea and dyspnea on exertion; Denies cough, orthopnea or sputum Gastrointestinal Gastrointestinal: Reports abdominal pain, nausea and vomiting; Denies diarrhea Genitourinary Genitourinary ED: Denies dysuria, hematuria or urinary frequency Musculoskeletal Musculoskeletal: Denies arthralgias, back pain, myalgias or neck pain Integumentary Denies abscess, Abrasions or rash Neurologic Neurologic: Reports headache(s); Denies weakness Psychiatric Psychiatric: Denies anxiety, depression or suicidal thoughts Endocrine Endocrinology: Denies polydipsia, polyphagia or polyuria Hematologic/Lymphatic Hematologic/Lymphatic: Denies easy bleeding, easy bruising or lymphadenopathy Allergic/Immunologic Allergic/Immunologic ED: Denies mouth swelling, tongue swelling or urticaria EXAM Physical Exam Const Vital Signs: 06/03/23 16:30 06/03/23 17:50 06/03/23 18:27 Temperature 96.9 F L Temperature Source Temporal Pulse Rate 95 103 H Respiratory Rate 18 18 Blood Pressure 137/100 H 132/100 H 92/64 Blood Pressure Mean 112 110 73 Pulse Ox 97 98 Oxygen Delivery Method Room Air Room Air 06/03/23 17:23 Temperature Temperature Source Pulse Rate 94 Respiratory Rate 18 Blood Pressure Blood Pressure Mean Pulse Ox 98 Oxygen Delivery Method Room Air Positive well nourished and well developed General Appearance ED: well developed and NAD HEENT Reports TM's clear and moist mucous membranes normocephalic and atraumatic; Negative for trauma or tenderness Tympanic Membrane ED: Yes TM's clear Eyes PERRL and EOMs intact bilaterally General Eye ED: Negative for pale conjunctiva or scleral icterus Neck no lymphadenopathy, supple and no JVD General: Negative for tenderness Chest Wall inspection of chest normal and palpation of chest normal Chest: Negative for tenderness Resp normal respiratory effort and clear to auscultation bilaterally Effort and Inspection: Negative for respiratory distress or pain with movement Auscultation: Negative for rhonchi, wheezes or diminished lung sounds Cardio regular rate, regular rhythm, S1 normal heart sound, S2 normal heart sound and no murmurs Peripheral Pulses: pulses 2+ throughout GI normal to inspection, nondistended, normoactive bowel sounds, soft to palpation, non-distended and no masses GI Narrative: Diffuse tenderness. No rebound, rigidity, or peritoneal signs. No mass palpated. Back/Spine no CVA tenderness and no thoracic nor lumbar tenderness Extremity normal to inspection General Extremety ED: Negative for edema General Extremity: Negative for edema Neuro oriented x3, CN's II-XII intact bilaterally, no sensory deficits noted and gait normal Sensorium / Orientation: awake, alert, oriented to person, oriented to place and oriented to time Motor Exam: strength 5/5 throughout and strength abnormal Psych mental status grossly normal Skin no rashes or lesions noted and no wounds MDM MDM MDM Narrative Medical decision making narrative: This with 4-week history of vomiting and some confusion. She has been seen by her oncologist as well as emergency room 2 days ago. Patient complains of a headache as well as abdominal pain and vomiting. Differential extensive given the headache and history of brain mets was concerned about intracranial process that would cause vomiting. Also given the abdominal pain and history of metastasis to the liver was concerned about worsening metastatic process or bowel obstruction versus bowel perforation or abscess or other process. IV line established. CBC with differential count of 5.2 with hemoglobin 10.8 and platelet count of 283. Chemistries unremarkable. LFTs were unremarkable. Lipase was normal at 24. CT scan of the brain without contrast was unremarkable. CT scan of the abdomen pelvis with IV contrast showed no acute abnormality but did show bibasilar patchy pneumonia and a known blastic metastasis of L2. Patient's mother tells me that patient does have some abnormalities on her chest CT from last time she had a scan related to the chemotherapy that she has been on. Clinically I do not think patient has pneumonia. Urine was positive for infection with 500 straight as well as 5-50 WBCs and +1 and urine was sent. I did start patient on Rocephin IV. Initially patient was treated with Reglan however she continued to throw up and I did give her Zofran IV. Patient also has a low potassium of 2.9 for which I did order 40 mEq of potassium chloride IV as she is not able to take p.o. currently. Case will be discussed with hospitalist to evaluate patient for admission. Lab Data Attestation: I reviewed the patient's lab results. Labs: Laboratory Results - last 24 hr 06/03/23 06/03/23 17:15 19:39 WBC 5.2 RBC 4.08 L Hgb 10.8 L Hct 32.8 L MCV 80.4 L MCH 26.5 L MCHC 32.9 RDW Std Deviation 50.7 H RDW Coeff of Adrianna 17.3 H Plt Count 283 MPV 9.8 Immature Gran % (Auto) 0.600 Neut % (Auto) 69.2 Lymph % (Auto) 15.5 L [place] % (Auto) 12.0 H Eos % (Auto) 1.7 Baso % (Auto) 1.0 Absolute Neuts (auto) 3.6 Absolute Lymphs (auto) 0.81 L Nucleated RBC % 0 Sodium 141 Potassium 2.9 L Chloride 107 Carbon Dioxide 31.0 Anion Gap 3 L BUN 8 Creatinine 0.75 Estim Creat Clear Calc 85.88 Est GFR (MDRD) Af Amer 106 Est GFR (MDRD) Non-Af 88 BUN/Creatinine Ratio 10.7 Glucose 127 H Calcium 9.1 Total Bilirubin 0.40 AST 33 ALT 52 Alkaline Phosphatase 78 Total Protein 6.2 L Albumin 3.1 L Globulin 3.1 Albumin/Globulin Ratio 1.0 Lipase 24 Urine Color Yellow Urine Clarity Sl. Cloudy Urine pH 7.0 Ur Specific [place] 1.005 Urine Protein 15 H Urine Glucose (UA) Normal Urine Ketones Negative Urine Occult Blood 25 H Urine Nitrite Negative Urine Bilirubin Negative Urine Urobilinogen Normal Ur Leukocyte Esterase 500 H Urine RBC 0 SEEN Urine WBC 25-50 SEEN Ur Squamous Epith Cells 0 SEEN Urine Bacteria 1+ Urine Mucus 0 SEEN Radiography Diagnostic Testing: Clinical Impression(s) from Imaging Studies Abdomen/Pelvis CT 06/03/23 18:08 IMPRESSION: 1. No acute abnormality. 2. Bibasilar patchy pneumonia. 3. Known blastic metastasis of L2. Electronically Signed: Sincere Pina MD at 19:06 EST , Brain CT 06/03/23 18:08 IMPRESSION: Chronic involutional changes of the brain. Electronically Signed: Sincere Pina MD at 18:31 EST , Discharge Plan Triage Chief Complaint: Abd Pain ED Provider: Esther Stauffer Dx/Rx/DC Orders Clinical Impression: Breast cancer metastasized to multiple sites, UTI (urinary tract infection), Altered mental status, Intractable vomiting Prescriptions: No Action metformin 1,000 mg tablet 1,000 mg PO BID sertraline [Zoloft] 50 mg tablet 150 mg PO DAILY atorvastatin 40 mg tablet 40 mg PO DAILY Herceptin 150 mg recon soln 150 mg .ROUTE .COMPLEX Rx Instructions: 150 mg tx every three weeks; zoledronic acid 4 mg/5 mL solution 4 mg .Route Rx Instructions: tx every 6 weeks diphenoxylate-atropine [Lomotil] 2.5-0.025 mg tablet 1 tab PO Q6-12H PRN Calcium Citrate Plus [id number] lr-jp-byko-mg tablet 1 tab PO DAILY Vegetarian Collagen tablet PO Vitamin D tablet PO (DME) Rolator regluar See Rx Instructions .Route .MEDSUPPLY Qty: 1 0RF Rx Instructions: As directed famotidine 20 mg tablet 20 mg PO BID Slow-Mag 71.5 mg tablet,delayed release (DR/EC) 71.5 mg PO BID carvedilol 6.25 mg tablet 6.25 mg PO BID Rx Instructions: must administer with a meal/food tucatinib 150 mg tablet 300 mg PO Q12H promethazine 25 MG tablet 25 mg PO Q6H PRN PRN (Reason: Nausea) Qty: 20 0RF insulin glargine 100 unit/mL (3 mL) insulin pen 12 unit subcut QHS Primary Care Provider: Kevin Adorno Referrals: Kevin Adorno DO [Primary Care Provider] - Disposition Disposition: Acute Care Hospital [facility]
[2023-06-03] MEDS: Metoclopramide 10 MG/2 ML Vial IV (17:21)
[2023-06-03] MEDS: 0.9% Normal Saline (1000mL) 1,000 ML 1000 ML IV (17:21)
[2023-06-03 17:31] LABS: Absolute Lymphocyte Count 0.81 X10^3/uL (0.83-4.51); Absolute Neutrophil Count 3.6 X10^3/uL (2.0-7.7); Basophil# 0.05 X10^3/uL; Eosinophil# 0.09 X10^3/uL; Eosinophils% 1.7 % (0-5); Hematocrit 32.8 % (37-47); Hemoglobin 10.8 g/dL (12.0-15.0); Lymphocyte # 0.81 X10^3/ul (0.83-4.51); Lymphocyte % 15.5 % (19-41); Mean Corp Hgb Conc 32.9 g/dL (32-36); Mean Corpuscular Hgb 26.5 pg (27.0-32.0); Mean Corpuscular Volume 80.4 fL (81-99); Mean Platelet Vol. 9.8 fl (6.2-12.0); Monocyte# 0.63 X10^3/uL; NRBC Flagged by Analyzer 0 % (0-5); Neutrophil # 3.63 X10^3/uL (2.7-7.7); Neutrophil % 69.2 % (47-70); Platelet Count 283 K/mm3 (150-450); RBC Distribution Width CV 17.3 % (11.6-14.6); RBC Distribution Width SD 50.7 fl (35.1-43.9); Red Blood Count 4.08 M/mm3 (4.2-5.4); White Blood Count 5.2 K/mm3 (4.4-11.0)
[2023-06-03 17:46] LABS: AST(SGOT) 33 U/L (15-37); Alanine Aminotransfer ALT/SGPT 52 U/L (13-56); Albumin, Serum 3.1 g/dL (3.2-5.0); Alkaline Phosphatase 78 U/L (45-117); Anion Gap 3 (5-15); BUN 8 mg/dL (7-18); BUN/Creat Ratio 10.7 RATIO (10-20); Calcium,Total 9.1 mg/dL (8.5-10.1); Chloride 107 mmol/L (98-107); Creatinine, Serum 0.75 mg/dL (0.55-1.02); EST Glomerular Filtration Rate 88 mL/min (>60); Est Glom Filt Rate - Afr Amer 106 mL/min (>60); Estimated Creatinine Clearance 85.88 ml/min; Globulin 3.1 g/dL (2.2-4.2); Glucose 127 mg/dL (74-106); Lipase 24 U/L (13-75); Potassium 2.9 mmol/L (3.5-5.1); Protein, Total 6.2 g/dL (6.4-8.2); Sodium Level 141 mmol/L (136-145)
--- NOTE | 2023-06-03 18:08 | CT_ITS ---
STUDY: CT BRAIN WITHOUT CONTRAST REASON FOR EXAM: Female, 47 years old. headache, vomitting RADIATION DOSAGE (If Supplied By Facility): CTDIvol = ( 44.99 ) mGy, DLP = ( 812.98 ) mGycm TECHNIQUE: Transaxial CT imaging of the brain was performed without administration of intravenous contrast material. Individualized dose optimization techniques were used for this CT. COMPARISON: 02/23/2020 FINDINGS: Normal soft tissue structures. Normal calvarium. There is moderate cerebral atrophy with widening of the extra-axial spaces and ventricular dilatation. There are areas of decreased attenuation within the white matter tracts of the supratentorial brain, consistent with microvascular disease changes. Normal basal ganglia and thalami. Normal brainstem. Normal cerebellum. There is no intracranial hemorrhage. There are no findings of an acute ischemic infarction. Normal visualized paranasal sinuses. CT/Brain/Head without Contrast IMPRESSION: Chronic involutional changes of the brain. Electronically Signed: Sincere Pina MD at 18:31 EST ,
--- NOTE | 2023-06-03 18:08 | CT_ITS ---
STUDY: CT ABDOMEN AND PELVIS WITH CONTRAST REASON FOR EXAM: Female, 47 years old. abdominal pain, vomiitting, BreastCA with mets RADIATION DOSAGE (If Supplied By Facility): CTDIvol = ( 13.46 ) mGy, DLP = ( 1178.48 ) mGycm TECHNIQUE: Transaxial images were obtained from the dome of the diaphragm to the symphysis pubis without oral contrast. IV 100mL Isovue-300 was administered. Sagittal and coronal images were reconstructed. Individualized dose optimization techniques were used for this CT. COMPARISON: PET CT 03/17/2022 FINDINGS: Patchy alveolar densities in both lung bases consistent with pneumonia. The visualized portions of the heart are within normal limits. Normal liver. Normal gallbladder and extrahepatic biliary system. Normal spleen. Normal pancreas. Normal bilateral adrenal glands. Normal right kidney. Normal left kidney. Normal visualized stomach. Normal small intestine. Normal colon. The appendix is visualized and appears normal. Normal abdominal aorta. Normal inferior vena cava. Normal retroperitoneum. Normal urinary bladder. Normal abdominal wall. Multiple healed right bilateral fractures. Sclerotic lesion of the L2 vertebral body extending into the left pedicle represent blastic metastasis. CT/Abdomen/Pelvis W IV Cont ONLY IMPRESSION: 1. No acute abnormality. 2. Bibasilar patchy pneumonia. 3. Known blastic metastasis of L2. Electronically Signed: Sincere Pina MD at 19:06 EST ,
[2023-06-03 19:52] LABS: Mucous, Urine 0 SEEN /hpf (<or=2+); Red Blood Cells-Urine 0 SEEN /hpf (0-5); Squamous Epithelial Cells - UA 0 SEEN /hpf (5-10)
[2023-06-03 20:01] LABS: Color, Urine Yellow (Yellow); Glucose, Dipstick Normal (Normal); Ketone-Dipstick Negative (Negative); Leukocyte Esterase-Dipstick 500 /ul (Negative); Nitrite-Dipstick Negative (Negative); Occult Blood-Urine 25 /ul (Negative); Protein-Dipstick 15 mg/dl (Negative); Specific Gravity, Urine 1.005 (1.002-1.030); Urine Bilirubin Dipstick Negative (Negative); Urine Clarity Sl. Cloudy (Clear); Urine Urobilinogen Normal (Normal)
[2023-06-03 20:25] LABS: Bacteria 1+ /hpf (None Seen); White Blood Cells 25-50 SEEN /hpf (0-5)
[2023-06-03] MEDS: Ondansetron 4 MG/2 ML Vial IM (20:39)
--- NOTE | 2023-06-03 20:51 | HP.PCM.HOS_ITS ---
HPI - General General Date of Admission: 06/03/23 Date of Service: 06/03/23 Chief Complaint: Refractory nausea and vomiting HPI Narrative MUSHTAQ FRANCES, is a 47 F history of recurrent bilateral breast cancer on herceptin with prior mets to the brain, spine and bones presents with uncontrolled nausea and vomiting. The vomiting is ongoing for the last month and her chemotherapy was discontinued about a week back. She underwent EGD at [facility] and it was reportedly normal. She has not been able to take any of her medications for the last 4 weeks. Today the family found her to be more confused. Lives by herself, and generally takes care of all the cooking by herself. Per the patient last time she ate was day before yesterday. Has been trying to eat very small quantities of food. History of breast cancer Diagnosed with breast cancer 2008 stage IIIC ER/AK positive HER-2 negative bilateral breast cancer at time of diagnosis; now stage IV breast cancer with ER positive, HER-2 overexpression/amplification by FISH with bone metastases and liver metastases and brain metastases, underwent bilateral mastectomies, chemo and radiation therapy at the time. Underwent bilateral oophorectomy and hystere ctomy in 2008 treated with letrozole. Unfortunately in 2019 had a recurrence of breast cancer with bone, brain, liver mets. Started on chemotherapy and whole brain irradiation. There are no more detectable intracranial mets, liver mets have also resolved. At present she is on Herceptin. In the ED, CT head showed moderate cerebral atrophy with widening of the extra-axial spaces and ventricular dilation, no intracranial hemorrhage no findings of acute infarction, no reasons for the nausea was found. CT abdomen pelvis showed bibasilar patchy pneumonia, no acute abnormality, known blast metastasis of L2 spine.Hemoglobin is 10.8, WBC 5.2 urine leukoesterase positive but nitrates negative, urine WBC 25-50. Potassium 2.9, sodium 141, BUN 8, creatinine 0.75, glucose 127 total protein 6.2, albumin 3.1, AST ALT normal lipase 24 She was mildly confused at the time of examination, AO x 2, to answer the questions and was feeling irritated. [facility], [facility] Medical History Bilateral malignant neoplasm of breast in female Breast cancer Diabetes Diabetes mellitus Family history of breast cancer Former smoker Hyperosmolar coma due to secondary diabetes Late effect of radiation Metastatic breast cancer Neuropathy Pain of both breasts Polyneuropathy Home Medications metformin 1,000 mg tablet 500 mg PO DAILY Check with primary doctor 11/07/19 [History Last Taken Unknown] promethazine 25 mg tablet 25 mg PO Q6H PRN PRN Nausea #20 tabs 11/28/19 [Rx Last Taken Unknown] Rolator #1 ea 02/10/21 [Rx Last Taken Unknown] insulin glargine 100 unit/mL (3 mL) subcutaneous pen 12 unit subcut .COMPLEX 02/10/21 [History Last Taken Unknown] trastuzumab 150 mg intravenous solution (Herceptin) 150 mg .Route .COMPLEX 02/10/21 [History Last Taken Unknown] zoledronic acid 4 mg/5 mL intravenous solution 4 mg .Route 02/10/21 [History Last Taken Unknown] carvedilol 6.25 mg tablet 6.25 mg PO BID 11/24/21 [History Last Taken Unknown] famotidine 20 mg tablet 40 mg PO DAILY 11/24/21 [History Last Taken Unknown] magnesium chloride 71.5 mg (magnesium chloride) tablet,delayed release (Slow- Mag) 71.5 mg PO BID 11/24/21 [History Last Taken Unknown] tucatinib 150 mg tablet 300 mg PO Q12H 11/24/21 [History Last Taken Unknown] lansoprazole 30 mg capsule,delayed release (Prevacid) 30 mg PO DAILY 06/03/23 [History Last Taken Unknown] ondansetron HCl 4 mg tablet 4 mg PO Q8H 06/03/23 [History Last Taken Unknown] Allergy/AdvReac Type Severity Reaction Status Date / Time sulfamethoxazole Allergy Severe FULL BODY Verified 06/03/23 16:30 [From Bactrim] RED RASH trimethoprim [From Bactrim] Allergy Severe FULL BODY Verified 06/03/23 16:30 RED RASH amoxicillin Allergy Intermediate RASH AND Verified 06/03/23 16:30 ITCHING azithromycin Allergy Intermediate RASH AND Verified 06/03/23 16:30 ITCHING erythromycin base Allergy Intermediate RASH AND Verified 06/03/23 16:30 ITCHING Penicillins Allergy Intermediate RASH AND Verified 06/03/23 16:30 ITCHING tetracycline Allergy Intermediate RASH AND Verified 06/03/23 16:30 ITCHING Family History Mother Breast cancer Cancer Father Cancer Brain Other Anemia Depression Diabetes Family history of breast cancer Myocardial infarction Surgical History H/O bilateral breast implants History of bilateral mastectomy Status post bilateral breast reconstruction Social History (Updated 03/22/22 @ 11:47 by Elvia Lorenzana) Smoking Status: Never smoker alcohol intake: never substance use type: does not use seatbelt use: always additional social history: DOES NOT TAKE ASPIRIN DOES TAKE IBUPROFEN NEEDED ROS Review of Systems ROS Unobtainable: due to mental status Vital Signs Vital Signs Vital Signs: 06/03/23 16:30 06/03/23 17:50 06/03/23 18:27 Temperature 96.9 F L Temperature Source Temporal Pulse Rate 95 103 H Respiratory Rate 18 18 Blood Pressure 137/100 H 132/100 H 92/64 Blood Pressure Mean 112 110 73 Pulse Ox 97 98 Oxygen Delivery Method Room Air Room Air 06/03/23 17:23 Temperature Temperature Source Pulse Rate 94 Respiratory Rate 18 Blood Pressure Blood Pressure Mean Pulse Ox 98 Oxygen Delivery Method Room Air Weight Weight: 189 lb 9.561 oz Body Mass Index (BMI) 30.6 Physical Exam Const Constitutional Narrative: Alert oriented x 2, could not participate in the exam. Eyes PERRL Neck no lymphadenopathy Resp normal respiratory effort, no retractions and clear to auscultation bilaterally Cardio regular rate GI normal to inspection, nondistended, normoactive bowel sounds Extremity normal to inspection Results Medical Records Data Attestation: I reviewed the patient's medical records Lab / Micro Data Attestation: I reviewed the patient's lab results. 06/03/23 17:15 06/03/23 17:15 Labs: Laboratory Results - last 24 hr 06/03/23 17:15: WBC 5.2, RBC 4.08 L, Hgb 10.8 L, Hct 32.8 L, MCV 80.4 L, MCH 26.5 L, MCHC 32.9, RDW Std Deviation 50.7 H, RDW Coeff of Adrianna 17.3 H, Plt Count 283, MPV 9.8, Immature Gran % (Auto) 0.600, Neut % (Auto) 69.2, Lymph % (Auto) 15.5 L, [place] % (Auto) 12.0 H, Eos % (Auto) 1.7, Baso % (Auto) 1.0, Absolute Neuts (auto) 3.6, Absolute Lymphs (auto) 0.81 L, Nucleated RBC % 0, Sodium 141, Potassium 2.9 L, Chloride 107, Carbon Dioxide 31.0, Anion Gap 3 L, BUN 8, Creatinine 0.75, Estim Creat Clear Calc 85.88, Est GFR (MDRD) Af Amer 106, Est GFR (MDRD) Non-Af 88, BUN/Creatinine Ratio 10.7, Glucose 127 H, Calcium 9.1, Total Bilirubin 0.40, AST 33, ALT 52, Alkaline Phosphatase 78, Total Protein 6.2 L, Albumin 3.1 L, Globulin 3.1, Albumin/Globulin Ratio 1.0, Lipase 24 06/03/23 19:39: Urine Color Yellow, Urine Clarity Sl. Cloudy, Urine pH 7.0, Ur Specific [place] 1.005, Urine Protein 15 H, Urine Glucose (UA) Normal, Urine Ketones Negative, Urine Occult Blood 25 H, Urine Nitrite Negative, Urine Bilirubin Negative, Urine Urobilinogen Normal, Ur Leukocyte Esterase 500 H, Urine RBC 0 SEEN, Urine WBC 25-50 SEEN, Ur Squamous Epith Cells 0 SEEN, Urine Bacteria 1+, Urine Mucus 0 SEEN Imagaing Radiology Impression Abdomen/Pelvis CT 06/03/23 18:08 IMPRESSION: 1. No acute abnormality. 2. Bibasilar patchy pneumonia. 3. Known blastic metastasis of L2. Electronically Signed: Sincere Pina MD at 19:06 EST , Brain CT 06/03/23 18:08 IMPRESSION: Chronic involutional changes of the brain. Electronically Signed: Sincere Pina MD at 18:31 EST , Assessment & Plan Assessment/Plan (1) Intractable vomiting: PLAN: Plan 1. Nausea vomiting: Differentials: Infection that is urosepsis versus recurrence of mets versus severe gastritis This is in the setting of ongoing Herceptin therapy, suspected UTI, and there was also remote possibility of brain mets. While the CT scan has been negative, if there is no improvement would like to go ahead with MRI brain sure that there are no new meds especially in the cerebellum and posterior chambers of the brain . For now we have started on Zofran and will give as needed Compazine to control her symptoms. Will also monitor her for any feeding syndrome and start her on thiamine injection. Plan will be to assess thyroid levels also. Continue lansoprazole as before. 2. Urinary tract infection: Given her active malignancy and ongoing chemotherapy we will empirically start her on IV ceftriaxone for her urinary tract infection, urine cultures, blood culture to rule out sepsis 3. Malnutrition/refeeding syndrome: She has very poor p.o. intake for the last few days, lives by herself and responsible for cooking at home. Will get phosphorus levels and also nutrition consult if needed to help her malnourished status at present. If she continues to not tolerate p.o. intake will have to consider nasoenteric feeding with nasojejunal tube placement or partial parenteral nutrition therapy 4. Recurrent breast cancer: Follow up with outpatient oncology regarding further therapy and diease staging. Charges/Coding Visit Charges Inpatient E&M: 23136 Init Hosp L3
[2023-06-03] MEDS: Potassium Chloride 10mEq/100mL 10 MEQ/100 ML IV.SOLN. 100 MEQ IV BOLUS ×3 (21:06→23:05)
[2023-06-03] MEDS: Ceftriaxone 1 GM/50 ML BAG IV (21:22)
--- NOTE | 2023-06-03 21:27 | NURSING ---
Unable to complete orthostatic VS. Pt nauseated and unable to safely lye flat. Also became dizzy when assisted to the bathroom earlier tonight.
[2023-06-03] MEDS: Heparin Injection (Vial) 5,000 UNIT/ML VIAL 5000 UNIT SC (23:43)
[2023-06-04] MEDS: Potassium Chloride 10mEq/100mL 10 MEQ/100 ML IV.SOLN. 100 MEQ IV BOLUS ×5 (00:07→14:15)
[2023-06-04] MEDS: proCHLORPERazine 10 MG/2 ML Vial 5 MG IV ×3 (00:58→16:08)
[2023-06-04] MEDS: Thiamine Hydrochloride 200 MG in 0.9% Normal Saline (50mL Bag) 50 ML IV (01:06)
[2023-06-04 01:40] VITALS: BP 138/97; PULSE 113; RESP 16; TEMP 37.4; O2SAT 97
[2023-06-04 05:52] LABS: Absolute Lymphocyte Count 0.57 X10^3/uL (0.83-4.51); Absolute Neutrophil Count 9.7 X10^3/uL (2.0-7.7); Basophil# 0.04 X10^3/uL; Basophil% 0.3 % (0-1); Hematocrit 32.1 % (37-47); Hemoglobin 10.5 g/dL (12.0-15.0); Lymphocyte # 0.57 X10^3/ul (0.83-4.51); Mean Corp Hgb Conc 32.7 g/dL (32-36); Mean Corpuscular Hgb 26.1 pg (27.0-32.0); Mean Corpuscular Volume 79.9 fL (81-99); Mean Platelet Vol. 9.9 fl (6.2-12.0); Monocyte# 1.15 X10^3/uL; NRBC Flagged by Analyzer 0 % (0-5); Neutrophil # 9.66 X10^3/uL (2.7-7.7); Neutrophil % 84.4 % (47-70); POSITIVE DIFFERENTIAL YES; Platelet Count 261 K/mm3 (150-450); RBC Distribution Width CV 17.3 % (11.6-14.6); RBC Distribution Width SD 50.7 fl (35.1-43.9); Red Blood Count 4.02 M/mm3 (4.2-5.4); White Blood Count 11.5 K/mm3 (4.4-11.0)
[2023-06-04 05:57] LABS: Differential Indicated SCAN CRITERIA MET
[2023-06-04 06:00] LABS: International Normalized Ratio 1.1; Prothrombin Time (Protime)PT. 13.9 SECONDS (11.7-14.9)
[2023-06-04 06:17] LABS: ALB/GLOB Ratio 1.1 RATIO (0.9-2.4); AST(SGOT) 29 U/L (15-37); Alanine Aminotransfer ALT/SGPT 44 U/L (13-56); Albumin, Serum 3.1 g/dL (3.2-5.0); Alkaline Phosphatase 75 U/L (45-117); Anion Gap 7 (5-15); BUN 4 mg/dL (7-18); BUN/Creat Ratio 5.8 RATIO (10-20); Bilirubin, Direct 0.14 mg/dL (0.00-0.30); Calcium,Total 7.9 mg/dL (8.5-10.1); Chloride 107 mmol/L (98-107); Creatinine, Serum 0.69 mg/dL (0.55-1.02); EST Glomerular Filtration Rate 96 mL/min (>60); Est Glom Filt Rate - Afr Amer 116 mL/min (>60); Estimated Creatinine Clearance 93.34 ml/min; Globulin 2.9 g/dL (2.2-4.2); Glucose 117 mg/dL (74-106); Magnesium 1.5 mg/dL (1.6-2.6); Phosphorus 3.1 mg/dL (2.5-4.9); Potassium 3.2 mmol/L (3.5-5.1); Sodium Level 139 mmol/L (136-145); Thyroid Stim Hormone (TSH) 0.89 uIU/mL (0.358-3.74)
[2023-06-04] MEDS: Heparin Injection (Vial) 5,000 UNIT/ML VIAL 5000 UNIT SC ×3 (06:21→21:23)
[2023-06-04] MEDS: 0.9% Normal Saline (1000mL) 1,000 ML 100 ML IV ×2 (06:24→21:22)
[2023-06-04 06:26] VITALS: BP 124/71; PULSE 105; RESP 16; TEMP 38; O2SAT 96
[2023-06-04 06:31] LABS: Differential Comment SCANNED
--- NOTE | 2023-06-04 07:57 | PCM.PN.HOSP ---
Reason for Visit Reason for Visit: Diagnoses Vomiting, unspecified (06/03/23) Subjective Subjective Patient is a 47-year-old lady with history of breast cancer currently undergoing chemo presented with intractable nausea and vomiting. Patient assessment was consistent with acute cystitis admitted to regular nursing floor for further management Objective Data Objective Data Vital Signs: Vital Signs Temp Pulse Resp BP Pulse Ox O2 Del Method 100.4 F H 105 H 16 124/71 H 96 Room Air 06/04/23 06:26 06/04/23 06:26 06/04/23 06:26 06/04/23 06:26 06/04/23 06:26 06/04/23 07:07 Oxygen Delivery Method Room Air Weight: 82.5 kg Body Mass Index (BMI) 29.3 Intake & Output: Intake and Output for Last 24 Hours 06/02/23 06/03/23 06/04/23 23:59 23:59 23:59 Intake Total 1245 / 1245 248.67 / 248.67 Output Total 0 / 0 Balance 1245 / 1245 248.67 / 248.67 Lab / Micro Data 06/04/23 05:45 06/04/23 05:45 Labs: Laboratory Results - last 24 hr 06/03/23 17:15: WBC 5.2, RBC 4.08 L, Hgb 10.8 L, Hct 32.8 L, MCV 80.4 L, MCH 26.5 L, MCHC 32.9, RDW Std Deviation 50.7 H, RDW Coeff of Adrianna 17.3 H, Plt Count 283, MPV 9.8, Immature Gran % (Auto) 0.600, Neut % (Auto) 69.2, Lymph % (Auto) 15.5 L, [place] % (Auto) 12.0 H, Eos % (Auto) 1.7, Baso % (Auto) 1.0, Absolute Neuts (auto) 3.6, Absolute Lymphs (auto) 0.81 L, Nucleated RBC % 0, Sodium 141, Potassium 2.9 L, Chloride 107, Carbon Dioxide 31.0, Anion Gap 3 L, BUN 8, Creatinine 0.75, Estim Creat Clear Calc 85.88, Est GFR (MDRD) Af Amer 106, Est GFR (MDRD) Non-Af 88, BUN/Creatinine Ratio 10.7, Glucose 127 H, Calcium 9.1, Total Bilirubin 0.40, AST 33, ALT 52, Alkaline Phosphatase 78, Total Protein 6.2 L, Albumin 3.1 L, Globulin 3.1, Albumin/Globulin Ratio 1.0, Lipase 24 06/03/23 19:39: Urine Color Yellow, Urine Clarity Sl. Cloudy, Urine pH 7.0, Ur Specific [place] 1.005, Urine Protein 15 H, Urine Glucose (UA) Normal, Urine Ketones Negative, Urine Occult Blood 25 H, Urine Nitrite Negative, Urine Bilirubin Negative, Urine Urobilinogen Normal, Ur Leukocyte Esterase 500 H, Urine RBC 0 SEEN, Urine WBC 25-50 SEEN, Ur Squamous Epith Cells 0 SEEN, Urine Bacteria 1+, Urine Mucus 0 SEEN 06/04/23 05:45: WBC 11.5 H, RBC 4.02 L, Hgb 10.5 L, Hct 32.1 L, MCV 79.9 L, MCH 26.1 L, MCHC 32.7, RDW Std Deviation 50.7 H, RDW Coeff of Adrianna 17.3 H, Plt Count 261, MPV 9.9, Immature Gran % (Auto) 0.300, Neut % (Auto) 84.4 H, Lymph % (Auto) 5.0 L, [place] % (Auto) 10.0, Eos % (Auto) 0.0, Baso % (Auto) 0.3, Absolute Neuts (auto) 9.7 H, Absolute Lymphs (auto) 0.57 L, Nucleated RBC % 0, Differential Comment SCANNED, PT 13.9, INR 1.1, Sodium 139, Potassium 3.2 L, Chloride 107, Carbon Dioxide 25.0, Anion Gap 7, BUN 4 L, Creatinine 0.69, Estim Creat Clear Calc 93.34, Est GFR (MDRD) Af Amer 116, Est GFR (MDRD) Non-Af 96, BUN/Creatinine Ratio 5.8 L, Glucose 117 H, Calcium 7.9 L, Phosphorus 3.1, Magnesium 1.5 L, Total Bilirubin 0.50, Direct Bilirubin 0.14, AST 29, ALT 44, Alkaline Phosphatase 75, Total Protein 6.0 L, Albumin 3.1 L, Globulin 2.9, Albumin/Globulin Ratio 1.1, TSH 0.89 Radiography Diagnostic Testing: Radiology Impression Abdomen/Pelvis CT 06/03/23 18:08 IMPRESSION: 1. No acute abnormality. 2. Bibasilar patchy pneumonia. 3. Known blastic metastasis of L2. Electronically Signed: Sincere Pina MD at 19:06 EST , Brain CT 06/03/23 18:08 IMPRESSION: Chronic involutional changes of the brain. Electronically Signed: Sincere Pina MD at 18:31 EST , Physical Exam Narrative GENERAL: cooperative HEENT: Atraumatic; normocephalic EYES; Anicteric, Normal Conjunctiva NECK; supple, normal thyroid, RESPIRATORY: Diminished to auscultation CARDIOVASCULAR: Regular S1 S2, GI: soft, normoactive bowel sounds, : No Renal angle tenderness; EXTREMITIES: No edema, no clubbing, MUSCULOSKELETAL: no muscle wasting NEURO: Awake; no lateralizing signs. SKIN: No Rash PSYCH; Flat affect Assessment & Plan Assessment/Plan (1) Intractable vomiting: PLAN: Plan Patient is a 47-year-old lady with history of breast cancer currently undergoing chemo presented with intractable nausea and vomiting. Patient assessment was consistent with acute cystitis admitted to regular nursing floor for further management 1. Acute cystitis ? Patient admitted to regular nursing floor started on Rocephin cultures sent 2. Sepsis ruled out 3. Intractable nausea vomiting ? Secondary to above as well as severe gastritis treated symptomatically 4. Recurrent breast CA ? Patient is on Herceptin as outpatient 5. Hypokalemia -Corrected per protocol 6. Hypomagnesemia ? Corrected per protocol 7. Anemia - Secondary to chronic disorder monitoring as well as anemia of malignancy H&H and transfuse if patient becomes symptomatic or hemoglobin falls below 7 8. DVT prophylaxis ? SC heparin Time spent in the patient's overall evaluation,decision-making process, review of diagnostic data, adjustment of management, discussion with other providers, nursing nursing and ancillary staff involved in patient's care documentation, 50 Minutes Charges/Coding Visit Charges Inpatient E&M: 98484 Subs Hosp L3
--- NOTE | 2023-06-04 08:01 | PCM.PN.HOSP ---
Reason for Visit Reason for Visit: Diagnoses Vomiting, unspecified (06/03/23) Objective Data Objective Data Vital Signs: Vital Signs Temp Pulse Resp BP Pulse Ox O2 Del Method 100.4 F H 105 H 16 124/71 H 96 Room Air 06/04/23 06:26 06/04/23 06:26 06/04/23 06:26 06/04/23 06:26 06/04/23 06:26 06/04/23 07:07 Oxygen Delivery Method Room Air Weight: 82.5 kg Body Mass Index (BMI) 29.3 Intake & Output: Intake and Output for Last 24 Hours 06/02/23 06/03/23 06/04/23 23:59 23:59 23:59 Intake Total 1245 / 1245 248.67 / 248.67 Output Total 0 / 0 Balance 1245 / 1245 248.67 / 248.67 Lab / Micro Data 06/04/23 05:45 06/04/23 05:45 Labs: Laboratory Results - last 24 hr 06/03/23 17:15: WBC 5.2, RBC 4.08 L, Hgb 10.8 L, Hct 32.8 L, MCV 80.4 L, MCH 26.5 L, MCHC 32.9, RDW Std Deviation 50.7 H, RDW Coeff of Adrianna 17.3 H, Plt Count 283, MPV 9.8, Immature Gran % (Auto) 0.600, Neut % (Auto) 69.2, Lymph % (Auto) 15.5 L, [place] % (Auto) 12.0 H, Eos % (Auto) 1.7, Baso % (Auto) 1.0, Absolute Neuts (auto) 3.6, Absolute Lymphs (auto) 0.81 L, Nucleated RBC % 0, Sodium 141, Potassium 2.9 L, Chloride 107, Carbon Dioxide 31.0, Anion Gap 3 L, BUN 8, Creatinine 0.75, Estim Creat Clear Calc 85.88, Est GFR (MDRD) Af Amer 106, Est GFR (MDRD) Non-Af 88, BUN/Creatinine Ratio 10.7, Glucose 127 H, Calcium 9.1, Total Bilirubin 0.40, AST 33, ALT 52, Alkaline Phosphatase 78, Total Protein 6.2 L, Albumin 3.1 L, Globulin 3.1, Albumin/Globulin Ratio 1.0, Lipase 24 06/03/23 19:39: Urine Color Yellow, Urine Clarity Sl. Cloudy, Urine pH 7.0, Ur Specific [place] 1.005, Urine Protein 15 H, Urine Glucose (UA) Normal, Urine Ketones Negative, Urine Occult Blood 25 H, Urine Nitrite Negative, Urine Bilirubin Negative, Urine Urobilinogen Normal, Ur Leukocyte Esterase 500 H, Urine RBC 0 SEEN, Urine WBC 25-50 SEEN, Ur Squamous Epith Cells 0 SEEN, Urine Bacteria 1+, Urine Mucus 0 SEEN 06/04/23 05:45: WBC 11.5 H, RBC 4.02 L, Hgb 10.5 L, Hct 32.1 L, MCV 79.9 L, MCH 26.1 L, MCHC 32.7, RDW Std Deviation 50.7 H, RDW Coeff of Adrianna 17.3 H, Plt Count 261, MPV 9.9, Immature Gran % (Auto) 0.300, Neut % (Auto) 84.4 H, Lymph % (Auto) 5.0 L, [place] % (Auto) 10.0, Eos % (Auto) 0.0, Baso % (Auto) 0.3, Absolute Neuts (auto) 9.7 H, Absolute Lymphs (auto) 0.57 L, Nucleated RBC % 0, Differential Comment SCANNED, PT 13.9, INR 1.1, Sodium 139, Potassium 3.2 L, Chloride 107, Carbon Dioxide 25.0, Anion Gap 7, BUN 4 L, Creatinine 0.69, Estim Creat Clear Calc 93.34, Est GFR (MDRD) Af Amer 116, Est GFR (MDRD) Non-Af 96, BUN/Creatinine Ratio 5.8 L, Glucose 117 H, Calcium 7.9 L, Phosphorus 3.1, Magnesium 1.5 L, Total Bilirubin 0.50, Direct Bilirubin 0.14, AST 29, ALT 44, Alkaline Phosphatase 75, Total Protein 6.0 L, Albumin 3.1 L, Globulin 2.9, Albumin/Globulin Ratio 1.1, TSH 0.89 Radiography Diagnostic Testing: Radiology Impression Abdomen/Pelvis CT 06/03/23 18:08 IMPRESSION: 1. No acute abnormality. 2. Bibasilar patchy pneumonia. 3. Known blastic metastasis of L2. Electronically Signed: Sincere Pina MD at 19:06 EST , Brain CT 06/03/23 18:08 IMPRESSION: Chronic involutional changes of the brain. Electronically Signed: Sincere Pina MD at 18:31 EST ,
[2023-06-04 08:19] VITALS: BP 140/87; PULSE 97; RESP 16; TEMP 37.6; O2SAT 99
[2023-06-04] MEDS: Pantoprazole Sodium 40 MG Tablet PO (09:31)
[2023-06-04] MEDS: Magnesium Sulfate 2 GM in Dextrose 5%-Water (100mL Bag) 100 ML IV (10:34)
[2023-06-04] MEDS: Magnesium Chloride 64 MG Delay Rel.Tablet 128 MG PO ×2 (10:36→21:22)
[2023-06-04] MEDS: Potassium Chloride Oral Tablet 20 MEQ PO (10:37)
[2023-06-04 12:13] VITALS: BP 126/88; PULSE 82; RESP 16; TEMP 36.4; O2SAT 98
--- NOTE | 2023-06-04 12:40 | CASEMGMT ---
DESTINY HARRIS Assessment: Face to Face with pt for initial transition planning/care coordination assessment. RN KIMBERLY introduced self and role at [facility], pt voices understanding and consents to assessment. Pt is in bed with eyes closed, Ox3. Pt asked dtr Felicia who is present in room to answer assessment questions. Pt denies any homegoing needs. She was going to [place] a few mos ago. Care providers, pharmacy, and demographics verified/updated. Admitting Dx:refractory nausea vomiting PCP:Kyree Specialists:Eric onc; [place], [place] Preferred Pharmacy:[facility] Insurance:[employer] [facility] Prescription Benefit: yes LNOK:Emi Herculesroxanneclive, mother Living Arrangements: Pt lives alone with dtr and mother checking in on her frequently. Pt is able to perform own ADL's and IADL's. Pt denies concerns at home. Transportation: Pt recently stopped driving d/t weakness from N/V. Pt dtr or mother provides transportation. DME:w/c, cane, walker HHC/SNF:Denies hx of Pt states no concerns with going home at time of dc despite reporting being weak. Denies need for any therapy. Pt states no further concerns/needs. CM to follow. Advised pt to ask CM if any further question/concerns/needs arise, voices understanding. Pt Goal:Home Plan:Home
[2023-06-04] MEDS: Ensure Clear 120 ML Liquid PO ×2 (14:18→21:22)
[2023-06-04] MEDS: Carvedilol 6.25 MG Tablet PO (16:08)
[2023-06-04 16:12] VITALS: BP 116/71; PULSE 81; RESP 16; TEMP 36.7; O2SAT 98
[2023-06-04 20:00] VITALS: BP 127/70; PULSE 77; RESP 16; TEMP 36.8; O2SAT 98
[2023-06-05 02:00] VITALS: BP 142/85; PULSE 67; RESP 16; TEMP 36.7; O2SAT 99
[2023-06-05 04:00] VITALS: BP 142/85; PULSE 67; RESP 16; TEMP 36.7; O2SAT 99
[2023-06-05] MEDS: 0.9% Normal Saline (1000mL) 1,000 ML 100 ML IV (04:59)
[2023-06-05] MEDS: Heparin Injection (Vial) 5,000 UNIT/ML VIAL 5000 UNIT SC (04:59)
--- NOTE | 2023-06-05 07:34 | PCM.PN.HOSP ---
Reason for Visit Reason for Visit: Diagnoses Vomiting, unspecified (06/03/23) Subjective Subjective Patient seen urine cultures so far positive for Presumptive E. coli colony Count >100,000 CFU/mL Objective Data Objective Data Vital Signs: Vital Signs Temp Pulse Resp BP Pulse Ox O2 Del Method 98.0 F 67 16 142/85 H 99 Room Air 06/05/23 04:00 06/05/23 04:00 06/05/23 04:00 06/05/23 04:00 06/05/23 04:00 06/05/23 04:00 Oxygen Delivery Method Room Air Weight: 82.5 kg Body Mass Index (BMI) 29.3 Intake & Output: Intake and Output for Last 24 Hours 06/03/23 06/04/23 06/05/23 23:59 23:59 23:59 Intake Total 1245 / 1245 1832.67 / 2072.67 1001.67 / 1001.67 Output Total 200 / 200 Balance 1245 / 1245 1632.67 / 1872.67 1001.67 / 1001.67 Lab / Micro Data 06/05/23 08:55 06/05/23 08:55 Micro: Microbiology 06/03/23 19:39 Urine, Catheterized Urine Culture - Preliminary Presumptive E. coli Physical Exam Narrative GENERAL: cooperative HEENT: Atraumatic; normocephalic EYES; Anicteric, Normal Conjunctiva NECK; supple, normal thyroid, RESPIRATORY: Diminished to auscultation CARDIOVASCULAR: Regular S1 S2, GI: soft, normoactive bowel sounds, : No Renal angle tenderness; EXTREMITIES: No edema, no clubbing, MUSCULOSKELETAL: no muscle wasting NEURO: Awake; no lateralizing signs. SKIN: No Rash PSYCH; Flat affect Assessment & Plan Assessment/Plan (1) Intractable vomiting: PLAN: Plan Patient is a 47-year-old lady with history of breast cancer currently undergoing chemo presented with intractable nausea and vomiting. Patient assessment was consistent with acute cystitis admitted to regular nursing floor for further management 1. Acute cystitis ? Patient admitted to regular nursing floor started on Rocephin cultures sent ? 06/05/2023;Patient seen urine cultures so far positive for Presumptive E. coli colony Count >100,000 CFU/mL. Sensitivities reviewed plan is for patient to be discharged home on cefdinir 2. Sepsis ruled out 3. Intractable nausea vomiting ? Secondary to above as well as severe gastritis treated symptomatically 4. Recurrent breast CA ? Patient is on Herceptin as outpatient 5. Hypokalemia -Corrected per protocol 6. Hypomagnesemia ? Corrected per protocol 7. Anemia - Secondary to chronic disorder monitoring as well as anemia of malignancy H&H and transfuse if patient becomes symptomatic or hemoglobin falls below 7 8. DVT prophylaxis ? SC heparin Time spent in the patient's overall evaluation,decision-making process, review of diagnostic data, adjustment of management, discussion with other providers, nursing nursing and ancillary staff involved in patient's care documentation, 35 Minutes Charges/Coding Visit Charges Inpatient E&M: 99464 Subs Hosp L2
[2023-06-05] MEDS: Magnesium Chloride 64 MG Delay Rel.Tablet 128 MG PO (08:19)
[2023-06-05] MEDS: Potassium Chloride Oral Tablet 20 MEQ PO (08:19)
[2023-06-05] MEDS: Carvedilol 6.25 MG Tablet PO (08:19)
[2023-06-05] MEDS: Pantoprazole Sodium 40 MG Tablet PO (08:19)
[2023-06-05 08:29] VITALS: BP 126/103; PULSE 78; RESP 16; TEMP 36.7; O2SAT 98
[2023-06-05] MEDS: 0.9% Saline Lock 10 ML Syringe IV (08:59)
[2023-06-05 09:13] LABS: Absolute Lymphocyte Count 0.69 X10^3/uL (0.83-4.51); Absolute Neutrophil Count 3.9 X10^3/uL (2.0-7.7); Basophil# 0.04 X10^3/uL; Basophil% 0.7 % (0-1); Eosinophil# 0.27 X10^3/uL; Eosinophils% 4.9 % (0-5); Hematocrit 33.2 % (37-47); Hemoglobin 10.6 g/dL (12.0-15.0); Lymphocyte # 0.69 X10^3/ul (0.83-4.51); Lymphocyte % 12.5 % (19-41); Mean Corp Hgb Conc 31.9 g/dL (32-36); Mean Corpuscular Hgb 26.2 pg (27.0-32.0); Mean Platelet Vol. 9.7 fl (6.2-12.0); Monocyte# 0.57 X10^3/uL; Monocyte% 10.3 % (0-10); NRBC Flagged by Analyzer 0 % (0-5); Neutrophil # 3.93 X10^3/uL (2.7-7.7); Neutrophil % 71.2 % (47-70); Platelet Count 260 K/mm3 (150-450); RBC Distribution Width CV 17.5 % (11.6-14.6); RBC Distribution Width SD 52.3 fl (35.1-43.9); Red Blood Count 4.05 M/mm3 (4.2-5.4); White Blood Count 5.5 K/mm3 (4.4-11.0)
[2023-06-05 09:29] LABS: ALB/GLOB Ratio 0.9 RATIO (0.9-2.4); AST(SGOT) 30 U/L (15-37); Alanine Aminotransfer ALT/SGPT 43 U/L (13-56); Albumin, Serum 2.9 g/dL (3.2-5.0); Alkaline Phosphatase 73 U/L (45-117); Anion Gap 4 (5-15); BUN 4 mg/dL (7-18); BUN/Creat Ratio 6.8 RATIO (10-20); Calcium,Total 8.1 mg/dL (8.5-10.1); Chloride 114 mmol/L (98-107); Creatinine, Serum 0.59 mg/dL (0.55-1.02); EST Glomerular Filtration Rate 116 mL/min (>60); Est Glom Filt Rate - Afr Amer 141 mL/min (>60); Estimated Creatinine Clearance 109.16 ml/min; Globulin 3.1 g/dL (2.2-4.2); Glucose 128 mg/dL (74-106); Magnesium 2.3 mg/dL (1.6-2.6); Phosphorus 2.3 mg/dL (2.5-4.9); Potassium 3.7 mmol/L (3.5-5.1); Sodium Level 141 mmol/L (136-145)
--- NOTE | 2023-06-05 09:57 | PCM.DC.SUM ---
Providers Date of Admission: 06/03/23 Date of Discharge: 06/05/23 Primary Care Physician: Dr. Kevin Adorno, DO Reason For Visit: REFRACTORY NAUSEA VOMITING Diagnosis Discharge Diagnosis (1) Intractable vomiting: Status: Acute Code(s): R11.10 - Vomiting, unspecified Plan Patient is a 47-year-old lady with history of breast cancer currently undergoing chemo presented with intractable nausea and vomiting. Patient assessment was consistent with acute cystitis admitted to regular nursing floor for further management 1. Acute cystitis ? Patient admitted to regular nursing floor started on Rocephin cultures sent ? 06/05/2023;Patient seen urine cultures so far positive for Presumptive E. coli colony Count >100,000 CFU/mL. Sensitivities reviewed plan is for patient to be discharged home on cefdinir 2. Sepsis ruled out 3. Intractable nausea vomiting ? Secondary to above as well as severe gastritis treated symptomatically 4. Recurrent breast CA ? Patient is on Herceptin as outpatient 5. Hypokalemia -Corrected per protocol 6. Hypomagnesemia ? Corrected per protocol 7. Anemia - Secondary to chronic disorder monitoring as well as anemia of malignancy H&H and transfuse if patient becomes symptomatic or hemoglobin falls below 7 8. DVT prophylaxis ? SC heparin Time spent in the patient's overall evaluation,decision-making process, review of diagnostic data, adjustment of management, discussion with other providers, nursing nursing and ancillary staff involved in patient's care documentation, 35 Minutes Medications at Discharge Home Medications metformin 1,000 mg tablet 500 mg PO DAILY Check with primary doctor 11/07/19 promethazine 25 mg tablet 25 mg PO Q6H PRN PRN Nausea #20 tabs 11/28/19 Rolator #1 ea 02/10/21 insulin glargine 100 unit/mL (3 mL) subcutaneous pen 12 unit subcut .COMPLEX 02/10/21 trastuzumab 150 mg intravenous solution (Herceptin) 150 mg .Route .COMPLEX 02/10/21 zoledronic acid 4 mg/5 mL intravenous solution 4 mg .Route 02/10/21 carvedilol 6.25 mg tablet 6.25 mg PO BID 11/24/21 famotidine 20 mg tablet 40 mg PO DAILY 11/24/21 magnesium chloride 71.5 mg (magnesium chloride) tablet,delayed release (Slow-Mag) 71.5 mg PO BID 11/24/21 tucatinib 150 mg tablet 300 mg PO Q12H 11/24/21 lansoprazole 30 mg capsule,delayed release (Prevacid) 30 mg PO DAILY 06/03/23 ondansetron HCl 4 mg tablet 4 mg PO Q8H 06/03/23 cefdinir 300 mg capsule 300 mg PO Q12 #14 caps 06/05/23 Hospital Course Summary of Care Provided Minutes Spent on Discharge: 35 Physical Exam Narrative GENERAL: cooperative HEENT: Atraumatic; normocephalic EYES; Anicteric, Normal Conjunctiva NECK; supple, normal thyroid, RESPIRATORY: Diminished to auscultation CARDIOVASCULAR: Regular S1 S2, GI: soft, normoactive bowel sounds, : No Renal angle tenderness; EXTREMITIES: No edema, no clubbing, MUSCULOSKELETAL: no muscle wasting NEURO: Awake; no lateralizing signs. SKIN: No Rash PSYCH; Flat affect Weight / BMI Weight Weight: 82.5 kg Body Mass Index (BMI) 29.3 ABG / Lab / Microbiology Data 06/05/23 08:55 06/05/23 08:55 Laboratory: Laboratory Results - last 24 hr 06/05/23 08:55: WBC 5.5, RBC 4.05 L, Hgb 10.6 L, Hct 33.2 L, MCV 82.0, MCH 26.2 L, MCHC 31.9 L, RDW Std Deviation 52.3 H, RDW Coeff of Adrianna 17.5 H, Plt Count 260, MPV 9.7, Immature Gran % (Auto) 0.400, Neut % (Auto) 71.2 H, Lymph % (Auto) 12.5 L, [place] % (Auto) 10.3 H, Eos % (Auto) 4.9, Baso % (Auto) 0.7, Absolute Neuts (auto) 3.9, Absolute Lymphs (auto) 0.69 L, Nucleated RBC % 0, Sodium 141, Potassium 3.7, Chloride 114 H, Carbon Dioxide 23.0, Anion Gap 4 L, BUN 4 L, Creatinine 0.59, Estim Creat Clear Calc 109.16, Est GFR (MDRD) Af Amer 141, Est GFR (MDRD) Non-Af 116, BUN/Creatinine Ratio 6.8 L, Glucose 128 H, Calcium 8.1 L, Phosphorus 2.3 L, Magnesium 2.3, Total Bilirubin 0.40, AST 30, ALT 43, Alkaline Phosphatase 73, Total Protein 6.0 L, Albumin 2.9 L, Globulin 3.1, Albumin/Globulin Ratio 0.9 Microbiology: Microbiology 06/03/23 19:39 Urine, Catheterized Urine Culture - Final Presumptive E. coli D/C Instructions Discharge Diet: 1800 Calorie Control Diet Discharge Activity: Return to Normal Activity Call your doctor if you observe: Fever of 101 or Higher, Shortness of breath, Fainting spells and Chest pain Meaningful Use Info Meaningful Use Diagnoses (Choose all that apply): None applicable Discharge Plan Admission Admit Date/Time: 06/03/23 20:52 Attending Provider: Luis Antonio Petersen Primary Care Provider: Kevin Adorno Consulting Providers: Adryan Dent Discharge Orders/Prescriptions Prescriptions: New cefdinir 300 mg Capsule 300 mg PO Q12 Qty: 14 0RF Continued metformin 1,000 mg tablet 500 mg PO DAILY Herceptin 150 mg recon soln 150 mg .ROUTE .COMPLEX Rx Instructions: 150 mg tx every three weeks; zoledronic acid 4 mg/5 mL solution 4 mg .Route Rx Instructions: tx every 6 weeks (DME) Dio lassiter See Rx Instructions .Route .MEDSUPPLY Qty: 1 0RF Rx Instructions: As directed famotidine 20 mg tablet 40 mg PO DAILY Slow-Mag 71.5 mg tablet,delayed release (DR/EC) 71.5 mg PO BID carvedilol 6.25 mg tablet 6.25 mg PO BID Rx Instructions: must administer with a meal/food tucatinib 150 mg tablet 300 mg PO Q12H promethazine 25 MG tablet 25 mg PO Q6H PRN PRN (Reason: Nausea) Qty: 20 0RF insulin glargine 100 unit/mL (3 mL) insulin pen 12 unit subcut .COMPLEX Patient Comments: If blood sugar is greater than 100 Rx Instructions: 12 units subcutaneously; lansoprazole [Prevacid] 30 mg capsule,delayed release(DR/EC) 30 mg PO DAILY ondansetron HCl 4 mg tablet 4 mg PO Q8H Referrals / Follow Up: Kevin Adorno DO [Primary Care Provider] - In 1 Week Disposition Disposition (needs filled in before D/C Order can be placed): Home, Self Care Charges/Coding Visit Charges Inpatient E&M: 56916 Disch Hosp >30min
[2023-06-05] MEDS: 0.9 % NaCl (Sterile) Posiflush 10 mL IV (10:14)
[2023-06-05] MEDS: Cefdinir 300 MG Capsule PO (10:17)
== END 2023-06-05 10:34 | disposition home or self-care (01) | DRG 690 ==
LOC: ED 20:51 → MS3 21:55
PROVIDERS: Admitting Provider Internal Medicine; Emergency Provider Emergency Medicine; PCP Student in an Organized Health Care Education/Training Program; Visit Provider Internal Medicine
DX: N30.00 Acute cystitis without hematuria (principal); C79.51 Secondary malignant neoplasm of bone; C78.7 Secondary malignant neoplasm of liver and intrahepatic bile duct; C79.31 Secondary malignant neoplasm of brain; E11.42 Type 2 diabetes mellitus with diabetic polyneuropathy; C50.911 Malignant neoplasm of unspecified site of right female breast; C50.912 Malignant neoplasm of unspecified site of left female breast; Z79.4 Long term (current) use of insulin; B96.20 Unspecified Escherichia coli [E. coli] as the cause of diseases classified elsewhere; D63.0 Anemia in neoplastic disease; E87.6 Hypokalemia; K29.50 Unspecified chronic gastritis without bleeding; E83.42 Hypomagnesemia; Z17.0 Estrogen receptor positive status [ER+]; Z90.13 Acquired absence of bilateral breasts and nipples; Z79.83 Long term (current) use of bisphosphonates; Z79.84 Long term (current) use of oral hypoglycemic drugs; Z87.891 Personal history of nicotine dependence; Z80.3 Family history of malignant neoplasm of breast; Z79.899 Other long term (current) drug therapy
CPT/HCPCS: 36415; 36591; 70450; 74177; 80048; 80053; 80076; 81001; 83690; 83735; 84100; 84443; 85025; 85610; 87040; 87086; 87088; 87186; 93005; 96361; 96365; 96366; 96367; 96368; 96372; 96375; 96376; 97802; 99221; 99285; J7030; Q9967; A4216; G0378; J2405; J3490